=== PATIENT | female | born 1965 | race Caucasian/White ===

== ENCOUNTER 2018-02-28 00:46 | Inpatient (IN) ==
--- NOTE | 2018-02-28 01:31 | Internal Med History&Physical ---
Date of Encounter: 02/28/18 Time of Encounter: 01:31 Internal Medicine - H&P: HPI Chief complaint: chest pain Admitted From: Home Plans for Post Hospital Care: Home History of present illness: Ms. Sanchez is a 52 year old obese female with a history of hypertension and coronary artery disease with chronic lumbago who presents today on transfer from [facility] after being taken there for chest pain that started after undergoing injections to her lumbar spine for pain. She cannot specify what exactly was injected however she says it started when she was in recovery and felt it across her precordium with radiation to her left axilla. She denies accompanying shortness of breath or lightheadedness. She reports short-lived relief with sublingual nitroglycerin. While at [facility] it is reported that her EKG was non- ischemic with a negative initial troponin at 1645hrs. I asked for a D-dimer to be done which was elevated but a subsequent CTA was negative for PE. She presents here stating that she now feels the pain below her ribcage bilaterally with a horizontal type of radiation. She is comfortable however and wants to eat some food. Family history remarkable for HTN in father. PMHx as above. Social history remarkable for active tobacco use. Past Med Surg Social Fam HX - Family History Mother Living Status: Still Living Hx Family Cardiac Disorders: Yes (HTN) Hx Family Respiratory Disorders: Yes (asthma) Hx Family Endocrine Disorder: Yes (DM) Father Living Status: Cause of : carotid artery occluded. Internal Medicine - H&P: Meds Allergy/AdvReac Type Severity Reaction Status Date / Time acetaminophen [From Percocet] Allergy Hives Verified 02/28/18 02:02 aspirin Allergy Difficulty Verified 02/28/18 02:02 Breathing cephalexin Allergy Difficulty Verified 02/28/18 02:02 Breathing ibuprofen [From Motrin] Allergy Difficulty Verified 02/28/18 02:02 Breathing Iodinated Contrast- Oral and Allergy Difficulty Verified 02/28/18 02:02 IV Dye Breathing Latex, Natural Rubber Allergy Difficulty Verified 02/28/18 02:02 Breathing milk Allergy Wheezing Verified 02/28/18 02:02 morphine Allergy Difficulty Verified 02/28/18 02:02 Breathing Oxycodone [From Percocet] Allergy Hives Verified 02/28/18 02:02 shellfish derived Allergy Difficulty Verified 02/28/18 02:02 Breathing All Systems PM: A 10-system review of systems was performed and is negative for pertinent findings except as documented above in the HPI. - Constitutional Vitals: Temp Pulse Resp BP Pulse Ox 98 F 82 16 129/81 99 02/28/18 01:07 02/28/18 01:07 02/28/18 01:07 02/28/18 01:07 02/28/18 01:07 Exam: Vitals: Reviewed General: Obese white F lying in bed in NAD Skin: Warm and supple. HEENT: Moist mucous membranes. No conjunctivae pallor. Neck: No lymphadenopathy. No JVD. No carotid bruits. No palpable thyroid. Chest: Normal thoracic expansion. Normal breath sounds. Clear to auscultation. Heart: Normal S1 & S2; rhythmic. No rubs or murmurs. Abdomen: Non-distended, soft and non-tender to palpation. No peritoneal reaction. Extremities: No clubbing, cyanosis or edema. No calf tenderness. Normal distal pulses. Neurological: Awake, alert and oriented to person, place and time. No focal deficits. Psych: Affect appropriate. - Assessment and plan (1) Chest pain Current Visit: Yes Status: Acute Assessment and plan: The patient does have risk factors for CAD given her obesity and smoking history. Timing of chest pain onset concerning for an embolic phenomenon however this was ruled out on CT scan. Will obtain an EKG here, monitor on telemetry and repeat troponin. Can receive ntg prn. There's an element of reproducible pain as well. Also check serum lipase. Qualifiers: Chest pain type: unspecified Qualified Code(s): R07.9 - Chest pain, unspecified (2) HTN (hypertension) Current Visit: Yes Status: Acute Assessment and plan: Well controlled. Awaiting confirmation of home meds to resume. Qualifiers: Hypertension type: essential hypertension Qualified Code(s): I10 - Essential (primary) hypertension (3) Obesity Current Visit: Yes Status: Chronic Assessment and plan: Will benefit from weight loss. Diet and exercise education given. Qualifiers: Obesity type: due to excess calories Obesity classification: adult class 3 (BMI >= 40) Serious obesity comorbidity presence: with serious comorbidity Body mass index: BMI 50.0-59.9 Qualified Code(s): E66.01 - Morbid (severe) obesity due to excess calories; Z68.43 - Body mass index (BMI) 50-59.9, adult (4) CAD (coronary artery disease) Current Visit: Yes Status: Chronic Assessment and plan: Reports history of 1 stent. Awaiting verification of home meds. Should be on antiplatelet and statin therapy. Qualifiers: Coronary Disease-Associated Artery/Lesion type: [place] artery [place] vs. transplanted heart: [place] heart Associated angina: with stable angina Qual ified Code(s): I25.118 - Atherosclerotic heart disease of [place] coronary artery with other forms of angina pectoris (5) DVT prophylaxis Current Visit: Yes Status: Acute Assessment and plan: SubQ heparin indicated. - Time Spent With Patient Total time spent is greater than 50% in coordination of care (as documented) at patient's floor/unit and/or counseling patient: Greater than 35 minutes
[2018-02-28] MEDS: traMADol 50 MG TABLET PO PRN ×3 (05:00→23:49)
[2018-02-28 05:36] LABS: Basophils % 0.5 %; Eosinophils # 0.2 K/mcL (0.0-0.6); Eosinophils % 2.4 %; Hematocrit 36.2 % (35.3-44.9); Hemoglobin 11.6 g/dL (11.5-15.4); Immature Granulocytes % 0.5 % (0-4); Lymphocytes # 1.5 K/mcL (0.6-4.6); Lymphocytes % 23.1 %; Mean Corpuscular Hemoglobin 28.6 pg (28.0-33.3); Mean Corpuscular Volume 89.2 fL (83.0-100.0); Monocytes # 0.5 K/mcL (0.0-1.3); Monocytes % 8.1 %; Neutrophils # 4.3 K/mcL (1.6-8.9); Platelet Count 310 K/mcL (140-400); Red Blood Count 4.06 M/mcL (3.82-4.97); Red Cell Distribution Width 13.9 % (11.5-14.5); Segmented Neutrophils % 65.4 %
[2018-02-28 05:59] LABS: Troponin I < 0.03 ng/mL (< 0.04)
[2018-02-28] MEDS ORDERED: *HR* Heparin 5,000 UNIT/ML VIAL SQ SCH (06:00)
[2018-02-28 06:33] LABS: BUN/Creatinine Ratio 22 (6-26); Blood Urea Nitrogen 18 mg/dL (6-20); Calcium 8.6 mg/dL (8.6-10.3); Carbon Dioxide 22 mEq/L (23-29); Chloride 109 mEq/L (98-107); Glucose 149 mg/dL (70-105); Lipase 16 Units/L (11-82); Osmolality,Calculated 299 (280-300); Potassium 3.7 mEq/L (3.5-5.1); Sodium 142 mEq/L (136-145); eGFR For Non-African Americans > 60 (> 60)
[2018-02-28] MEDS: Gabapentin 400 MG CAPSULE PO SCH ×3 (08:47→20:42)
[2018-02-28] MEDS: *HR* Rivaroxaban 10 MG TABLET PO SCH (08:47)
[2018-02-28] MEDS: traZODone 50 MG TABLET PO SCH (08:47)
[2018-02-28] MEDS: Famotidine 20 MG TABLET PO SCH (08:48)
[2018-02-28] MEDS: Perphenazine 8 MG TABLET PO SCH ×3 (08:49→20:42)
[2018-02-28] MEDS: (Breo Ellipta 100-25 Mcg Inh) IH SCH (08:52)
[2018-02-28] MEDS: (Ezetimibe [Zetia] 10 MG) PO SCH (08:53)
[2018-02-28] MEDS: Fluticasone Propionate Nasal 50 MCG/SPRAY BOTTLE NS SCH (08:53)
[2018-02-28] MEDS: Nitroglycerin 0.4 MG TAB.SUBL SL PRN (11:31)
--- NOTE | 2018-02-28 16:03 | Internal Med Progress Note ---
Hospitalist Progress Note - Encounter Date of Encounter: 02/28/18 Time of Encounter: 12:00 - Subjective Interval History: Patient was seen and examined at bedside patient still complaining about intermittent midsternal chest pain radiating to her left shoulder associated with some nausea denied any shortness of breath - Exam Vitals: Temp Pulse Resp BP Pulse Ox 97.9 F 82 18 109/75 96 02/28/18 15:16 02/28/18 15:16 02/28/18 15:16 02/28/18 15:16 02/28/18 11:20 Exam: Gen: Alert, awake, Oriented to time,place and person Chest: Diminished breath sounds B/L, No wheezing, No crackles, No rales Heart: S1S2+ RRR No murmurs Abd: Soft, NT, BS +, No organomegaly Ext: No edema, pulses are palpable, No calf tenderness Neuro : Benign findings Skin: No rash. - Assessment and Plan (1) Chest pain Current Visit: Yes Status: Acute Assessment and Plan: So far negative troponin 3 reviewed EKG did not show any acute ischemic changes, no ST T changes continue Statin she is allergic to aspirin since patient is high risk for ACS scheduled for nuclear stress test (2) HTN (hypertension) Current Visit: Yes Status: Acute Assessment and Plan: Well controlled with current regimen (3) Obesity Current Visit: Yes Status: Chronic Assessment and Plan: Will benefit from weight loss. Diet and exercise education given. (4) CAD (coronary artery disease) Current Visit: Yes Status: Chronic Assessment and Plan: Reports history of 1 stent resumed home medications (5) DVT prophylaxis Current Visit: Yes Status: Acute Assessment and Plan: SubQ heparin indicated. (6) Bipolar 2 disorder Current Visit: Yes Status: Acute Assessment and Plan: Resumed all home medications - Time Spent with Patient Total time spent is greater than 50% in coordination of care (as documented) at patient's floor/unit and/or counseling patient: Internal Medicine: Result - Labs CBC & Chem 7: 02/28/18 04:47 02/28/18 04:47 Labs: Short CBC 02/28/18 Range/Units 04:47 WBC 6.6 (4.3-11.1) K/mcL Hgb 11.6 (11.5-15.4) g/dL Hct 36.2 (35.3-44.9) % Plt Count 310 (140-400) K/mcL Neutrophils # 4.3 (1.6-8.9) K/mcL BMP 02/28/18 04:47 Sodium 142 Potassium 3.7 Chloride 109 H Carbon Dioxide 22 L BUN 18 Creatinine 0.83 Glucose 149 H Calcium 8.6 Cardiac Enzymes 02/28/18 Range/Units 04:47 Troponin I < 0.03 (< 0.04) ng/mL Consult Discharge Plan - Plan Referrals: Tiffanie Wiseman, FUNDING COORDINATOR [Primary Care Provider] - (1) Chest pain Qualifiers: Chest pain type: unspecified Qualified Code(s): R07.9 - Chest pain, unspecified (2) HTN (hypertension) Qualifiers: Hypertension type: essential hypertension Qualified Code(s): I10 - Essential (primary) hypertension (3) Obesity Qualifiers: Obesity type: due to excess calories Obesity classification: adult class 3 (BMI >= 40) Serious obesity comorbidity presence: with serious comorbidity Body mass index: BMI 50.0-59.9 Qualified Code(s): E66.01 - Morbid (severe) obesity due to excess calories; Z68.43 - Body mass index (BMI) 50-59.9, adult (4) CAD (coronary artery disease) Qualifiers: Coronary Disease-Associated Artery/Lesion type: [place] artery [place] vs. transplanted heart: [place] heart Associated angina: with stable angina Qualified Code(s): I25.118 - Atherosclerotic heart disease of [place] coronary artery with other forms of angina pectoris
[2018-02-28] MEDS ORDERED: Saline Nasal Spray 44 ML BOTTLE NS ONE (21:37)
[2018-03-01] MEDS ORDERED: Ondansetron 4 MG/2 ML VIAL IVP ONE (04:38)
[2018-03-01] MEDS ORDERED: Regadenoson 0.4 MG/5 ML SYRINGE IVP ONE (05:38)
[2018-03-01] MEDS: traMADol 50 MG TABLET PO PRN ×2 (06:16→21:16)
[2018-03-01] MEDS: traZODone 50 MG TABLET PO SCH (10:59)
[2018-03-01] MEDS: *HR* Rivaroxaban 10 MG TABLET PO SCH (10:59)
[2018-03-01] MEDS: Gabapentin 400 MG CAPSULE PO SCH ×3 (10:59→20:50)
[2018-03-01] MEDS: Famotidine 20 MG TABLET PO SCH (11:00)
[2018-03-01] MEDS: Ondansetron 4 MG/2 ML VIAL IVP PRN ×2 (11:01→20:52)
[2018-03-01] MEDS: Perphenazine 8 MG TABLET PO SCH ×3 (11:01→20:50)
--- NOTE | 2018-03-01 14:29 | Internal Med Progress Note ---
Hospitalist Progress Note - Encounter Date of Encounter: 03/01/18 Time of Encounter: 14:28 - Subjective Interval History: Patient was seen and examined at bedside She denied any more CP Still has nausea denied any shortness of breath - Exam Vitals: Temp Pulse Resp BP Pulse Ox 97.8 F 96 17 129/71 94 03/01/18 14:25 03/01/18 14:25 03/01/18 14:25 03/01/18 14:25 03/01/18 14:25 Exam: Gen: Alert, awake, Oriented to time,place and person Chest: Diminished breath sounds B/L, No wheezing, No crackles, No rales Heart: S1S2+ RRR No murmurs Abd: Soft, NT, BS +, No organomegaly Ext: No edema, pulses are palpable, No calf tenderness Neuro : Benign findings Skin: No rash. - Assessment and Plan (1) Chest pain Current Visit: Yes Status: Acute Assessment and Plan: So far negative troponin 3 reviewed EKG did not show any acute ischemic changes, no ST T changes continue Statin she is allergic to aspirin since patient is high risk for ACS scheduled for nuclear stress test.. She does need 2 days stress test (2) HTN (hypertension) Current Visit: Yes Status: Acute Assessment and Plan: Well controlled with current regimen (3) Obesity Current Visit: Yes Status: Chronic Assessment and Plan: Will benefit from weight loss. Diet and exercise education given. (4) CAD (coronary artery disease) Current Visit: Yes Status: Chronic Assessment and Plan: Reports history of 1 stent resumed home medications (5) DVT prophylaxis Current Visit: Yes Status: Acute Assessment and Plan: SubQ heparin indicated. (6) Bipolar 2 disorder Current Visit: Yes Status: Acute Assessment and Plan: Resumed all home medications - Time Spent with Patient Total time spent is greater than 50% in coordination of care (as documented) at patient's floor/unit and/or counseling patient: Internal Medicine: Result - Labs CBC & Chem 7: 02/28/18 04:47 02/28/18 04:47 Labs: Cardiac Enzymes 03/01/18 Range/Units 04:07 Troponin I < 0.03 (< 0.04) ng/mL Consult Discharge Plan - Plan Referrals: Tiffanie Wiseman, HIGHER EDUCATION ADMINISTRATOR [Primary Care Provider] - 03/08/18 12:30 pm (1) Chest pain Qualifiers: Chest pain type: unspecified Qualified Code(s): R07.9 - Chest pain, unspecified (2) HTN (hypertension) Qualifiers: Hypertension type: essential hypertension Qualified Code(s): I10 - Essential (primary) hypertension (3) Obesity Qualifiers: Obesity type: due to excess calories Obesity classification: adult class 3 (BMI >= 40) Serious obesity comorbidity presence: with serious comorbidity Body mass index: BMI 50.0-59.9 Qualified Code(s): E66.01 - Morbid (severe) obesity due to excess calories; Z68.43 - Body mass index (BMI) 50-59.9, adult (4) CAD (coronary artery disease) Qualifiers: Coronary Disease-Associated Artery/Lesion type: [place] artery [place] vs. transplanted heart: [place] heart Associated angina: with stable angina Qualified Code(s): I25.118 - Atherosclerotic heart disease of [place] coronary ar [place] with other forms of angina pectoris
[2018-03-01] MEDS: (Breo Ellipta 100-25 Mcg Inh) IH SCH (14:40)
[2018-03-01] MEDS: (Ezetimibe [Zetia] 10 MG) PO SCH (14:40)
[2018-03-01] MEDS: Fluticasone Propionate Nasal 50 MCG/SPRAY BOTTLE NS SCH ×2 (19:32→21:11)
[2018-03-02] MEDS: traMADol 50 MG TABLET PO PRN ×4 (03:08→23:41)
[2018-03-02] MEDS: Ondansetron 4 MG/2 ML VIAL IVP PRN ×4 (03:10→23:42)
[2018-03-02] MEDS: Gabapentin 400 MG CAPSULE PO SCH ×3 (08:50→21:25)
[2018-03-02] MEDS: Famotidine 20 MG TABLET PO SCH (08:50)
[2018-03-02] MEDS: Perphenazine 8 MG TABLET PO SCH ×3 (08:51→21:25)
[2018-03-02] MEDS: traZODone 50 MG TABLET PO SCH (08:51)
[2018-03-02] MEDS: *HR* Rivaroxaban 10 MG TABLET PO SCH (08:51)
[2018-03-02] MEDS: Fluticasone Propionate Nasal 50 MCG/SPRAY BOTTLE NS SCH ×2 (08:51→21:25)
[2018-03-02] MEDS: (Breo Ellipta 100-25 Mcg Inh) IH SCH (10:01)
[2018-03-02] MEDS: (Ezetimibe [Zetia] 10 MG) PO SCH (10:01)
--- NOTE | 2018-03-02 11:39 | Cardiology Consult Note ---
<Jaswinder Hill - Last Filed: 03/02/18 14:08> Date of Encounter: 03/02/18 Time of Encounter: 11:38 Assessment and Plan (1) Chest pain Current Visit: Yes Status: Acute - not on anti-anginal medications - start on metropolol. If she feels better we can do cath outpatient. If she doesn't improve we conisder cath tomorrow. - consult for aspirin allergy desensitization. Rec start ASA per their recs. - small apical perfusion defect on stress test. Qualifiers: Chest pain type: unspecified Qualified Code(s): R07.9 - Chest pain, unspecified (2) HTN (hypertension) Current Visit: Yes Status: Acute Not hypertensive 102/66. Qualifiers: Hypertension type: essential hypertension Qualified Code(s): I10 - Essential (primary) hypertension (3) CAD (coronary artery disease) Current Visit: Yes Status: Chronic See recs for chest pain. Qualifiers: Coronary Disease-Associated Artery/Lesion type: [place] artery [place] vs. transplanted heart: [place] heart Associated angina: with stable angina Qualified Code(s): I25.118 - Atherosclerotic heart disease of [place] coronary artery with other forms of angina pectoris Discussion w patient/family: The assessment and plan as outlined above was discussed with the patient and/or family members who expressed understanding and agreement. All questions were answered. Thank you for involving us in the care of your patient. Please call with any questions. History of Present Illness Consult date: 03/02/18 Consult reason: abnormal stress test and CP Chief complaint: CP History of present illness: Ms. Sanchez is a 52 year old female here for CP with abnormal stress test. [place] of HTN, afib, CAD, ACS s/p stent 20 years ago, DVT hyperlipidemia, DM, and bipolar II. Patient was undergoing spinal injection at [facility] for hip pain yesterday when she started having CP and SOB needing oxygen. THe CP was substernal, radiating to left axilla and back, rated 10/10, alleviated by nitro. At [facility] EG was negative for ST changes, she had negative troponins, d-dimer was elevated w/ follow up CTA negative for PE. Currently patient reports substernal CP going to L shoulder and down left hand rated 8/10. At current visit patient has negative EKG x 2, and negative trops x 2. CXR showed normal heart size. Patient has significant family history of heart disease: sister had ID, middle and older brothers have enlarged hearts. Past Med Surg Social Fam HX - Past Medical History Medical history: CHF, COPD, DVT, diabetes, hyperlipidemia, hypertension, migraine, pulmonary embolus, other Additional medical history: ortho, bilateral knees. Heart murmur. Unstable angina Psychiatric history: depression, schizophrenia - Social History Smoking Status: Never smoker Smokeless Tobacco Status: No Alcohol use: none Drug use: none - Family History Mother Living Status: Still Living Hx Family Cardiac Disorders: Yes (HTN) Hx Family Respiratory Disorders: Yes (asthma) Hx Family Endocrine Disorder: Yes (DM) Father Living Status: Cause of : carotid artery occluded. Medications and Allergies Atorvastatin [Lipitor] 40 mg PO HS 02/28/18 [History] Benztropine [Cogentin] 0.5 mg PO DAILY 02/28/18 [History] Cyclobenzaprine HCl 5 mg PO BID 02/28/18 [History] DULoxetine [Cymbalta] 30 mg PO DAILY 02/28/18 [History] Fluticasone Propionate Nasal [Flonase] 1 puff IH BID 02/28/18 [History] Fluticasone/Vilanterol [Breo Ellipta 100-25 Mcg INH] 1 each IH DAILY 02/28/18 [History] Gabapentin [Neurontin] 800 mg PO TID 02/28/18 [History] Ipratropium/Albuterol Neb [Duoneb] 3 ml IH TID PRN 02/28/18 [History] Levocetirizine Dihydrochloride [Allergy Relief] 5 mg PO DAILY 02/28/18 [History] Lisinopril [Zestril] 5 mg PO DAILY 02/28/18 [History] Lurasidone [Latuda] 40 mg PO DAILY 02/28/18 [History] Meclizine HCl [Verticalm] 25 mg PO DAILY 02/28/18 [History] Montelukast [Singulair] 10 mg PO DAILY 02/28/18 [History] Ranitidine HCl [Acid Concrete Laborer] 150 mg PO DAILY 02/28/18 [History] Rivaroxaban [Xarelto] 20 mg PO DAILY 02/28/18 [History] Topiramate 50 mg PO DAILY 02/28/18 [History] Topiramate 100 mg PO HS 02/28/18 [History] Trazodone HCl 200 mg PO HS 02/28/18 [History] Allergy/AdvReac Type Severity Reaction Status Date / Time acetaminophen [From Percocet] Allergy Hives Verified 02/28/18 02:02 aspirin Allergy Difficulty Verified 02/28/18 02:02 Breathing cephalexin Allergy Difficulty Verified 02/28/18 02:02 Breathing ibuprofen [From Motrin] Allergy Difficulty Verified 02/28/18 02:02 Breathing Iodinated Contrast- Oral and Allergy Difficulty Verified 02/28/18 02:02 IV Dye Breathing Latex, Natural Rubber Allergy Difficulty Verified 02/28/18 02:02 Breathing milk Allergy Wheezing Verified 02/28/18 02:02 morphine Allergy Difficulty Verified 02/28/18 02:02 Breathing Oxycodone [From Percocet] Allergy Hives Verified 02/28/18 02:02 shellfish derived Allergy Difficulty Verified 02/28/18 02:02 Breathing All Systems Review: The remainder of the systems were reviewed and are negative - Constitutional Constitutional: no chills, no fatigue, no fever(s), no night sweats, no weakness - Cardiovascular Cardiovascular: as per HPI - Respiratory Respiratory: no dyspnea (resolved from dypsnea at [facility]) - Musculoskeletal Musculoskeletal: other (LE pain) Physical Examination General: Conversant, No Apparent Distress HEENT: Atraumatic, Normocephaly Neck: No JVD, Normal carotid pulses Cardiac: Reg Rate and Rhythm, Normal S1 and S2, No Murmur Lungs: Normal Breath Sounds Neuro: Alert and responsive, No focal deficits noted Abdomen: Soft, Non-Tender Skin: No rashes noted on visualized skin Musculoskeletal: No Chest Wall Tenderness Extremities: No Clubbing, No Cyanosis, No Edema, Normal Pulses Results 02/28/18 04:47 02/28/18 04:47 - Imaging and Cardiology Stress Test: report reviewed (Report showed apical ischemia) - EKG Interpretation EKG results cardiology: personally reviewed, normal ECG, sinus rhythm, no diagnostic ischemia Consult Discharge Plan - Plan Referrals: Tiffanie Wiseman, RADIOLOGIC TECH [Primary Care Provider] - 03/08/18 12:30 pm <ClaytonTuesday A - Last Filed: 03/02/18 16:03> Date of Encounter: 03/02/18 - Attending Attestation I have personally performed a face to face evaluation on this patient. I have reviewed and agree with the documented findings and care plan as documented by the resident. History and Exam by me shows: 52-year-old [place] female, morbidly obese who presented with atypical chest pain and shortness of breath on [id number] exertion. Myocardial perfusion imaging showed small apical ischemia with SDS of 2. Recommend starting antianginal medications including beta crow and nitrates. Need aspirin desensitization. For possible left heart catheter was aspirin desensitization is complete, or as outpatient Thanks, Ino Mills MD Assessment and Plan Discussion w patient/family: The assessment and plan as outlined above was discussed with the patient and/or family members who expressed understanding and agreement. All questions were answered. Thank you for involving us in the care of your patient. Please call with any questions. History of Present Illness History of present illness: Ms. Sanchez is a 52 year old female All Systems Review: The remainder of the systems were reviewed and are negative Physical Examination Vital Signs, Last 4 Hours Temp Pulse Resp BP Pulse Ox 03/02/18 15:31 98.1 F 71 15 100/66 93 Results 02/28/18 04:47 02/28/18 04:47
--- NOTE | 2018-03-02 14:01 | Internal Med Progress Note ---
Hospitalist Progress Note - Encounter Date of Encounter: 03/02/18 Time of Encounter: 13:56 - Subjective Interval History: Patient was seen and examined at bedside denied any shortness of breath she still have intermittent chest pain located at left chest wall and radiating to her left shoulder - Exam Vitals: Temp Pulse Resp BP Pulse Ox 98.0 F 81 18 102/66 96 03/02/18 11:47 03/02/18 11:47 03/02/18 11:47 03/02/18 11:47 03/02/18 11:47 Exam: Gen: Alert, awake, Oriented to time,place and person Chest: Diminished breath sounds B/L, No wheezing, No crackles, No rales Heart: S1S2+ RRR No murmurs Abd: Soft, NT, BS +, No organomegaly Ext: No edema, pulses are palpable, No calf tenderness Neuro : Benign findings Skin: No rash. - Assessment and Plan (1) Chest pain Current Visit: Yes Status: Acute Assessment and Plan: Negative troponin 3 reviewed EKG did not show any acute ischemic changes, no ST T changes continue Statin she is allergic to aspirin she is still complaining about intermittent chest pain Her nuclear stress test came back as slightly abnormal - Mild apical ischemia consulted cardiology for further evaluation patient is allergic to contrast does get hives and asthma exacerbation at this point cardiology recommend to start her on beta crow and nitro ( Imdur ) to see how patient responds since patient blood pressure running low in 100's, Will start low-dose beta crow Metoprolol 12.5 for now if patient still continue to have chest pain possible left heart cath in the morning (2) Abnormal stress test Current Visit: Yes Status: Acute (3) HTN (hypertension) Current Visit: Yes Status: Acute Assessment and Plan: Well controlled with current regimen (4) Obesity Current Visit: Yes Status: Chronic Assessment and Plan: Will benefit from weight loss. Diet and exercise education given. (5) CAD (coronary artery disease) Current Visit: Yes Status: Chronic Assessment and Plan: Reports history of 1 stent resumed home medications (6) DVT prophylaxis Current Visit: Yes Status: Acute Assessment and Plan: SubQ heparin indicated. (7) Bipolar 2 disorder Current Visit: Yes Status: Acute Assessment and Plan: Resumed all home medications - Time Spent with Patient Total time spent is greater than 50% in coordination of care (as documented) at patient's floor/unit and/or counseling patient: Internal Medicine: Result - Labs CBC & Chem 7: 02/28/18 04:47 02/28/18 04:47 Consult Discharge Plan - Plan Referrals: Tiffanie Wiseman CNP [Primary Care Provider] - 03/08/18 12:30 pm (1) Chest pain Qualifiers: Chest pain type: unspecified Qualified Code(s): R07.9 - Chest pain, unspecified (3) HTN (hypertension) Qualifiers: Hypertension type: essential hypertension Qualified Code(s): I10 - Essential (primary) hypertension (4) Obesity Qualifiers: Obesity type: due to excess calories Obesity classification: adult class 3 (BMI >= 40) Serious obesity comorbidity presence: with serious comorbidity Body mass index: BMI 50.0-59.9 Qualified Code(s): E66.01 - Morbid (severe) obesity due to excess calories; Z68.43 - Body mass index (BMI) 50-59.9, adult (5) CAD (coronary artery disease) Qualifiers: Coronary Disease-Associated Artery/Lesion type: [place] artery [place] vs. transplanted heart: [place] heart Associated angina: with stable angina Qualified Code(s): I25.118 - Atherosclerotic heart disease of [place] coronary artery with other forms of angina pectoris
--- NOTE | 2018-03-02 16:31 | Allergy Consult Note ---
Date of Encounter: 03/02/18 Time of Encounter: 16:00 Assessment and Plan (1) Adverse effect of unspecified drugs, medicaments and biological substances, initial encounter Current Visit: Yes Status: Acute Patient has history of aspirin allergy and is requiring aspirin for heart catherization. If patient is going to be discharged and catherization done at a later time then I recommend a direct admit to ICU at that time with aspirin desenstization prior. If patient requires catherization sooner then she will need to be off her beta crow prior to desensitization. I would also like to optomize her asthma control before doing desensitization. I have discussed procedure in detail with patient and discussed the risk and benefits. (2) Severe persistent asthma Current Visit: Yes Status: Acute Patient has history of severe persistent asthma. Patient still has daytime and nocturnal cough daily. She has been off of her inhalers x 2-3 days. It is hard to tell if any of her chest pain is secondary to her asthma. I did not hear wheezing on exam today however it was difficult for her to take full breaths while trying to sit up. I will start her on symbicort 160mcg 2 puffs BID while in the hospital. I have discussed patient with Dr. Albert and he will see patient tomorrow morning. I also ordered albuterol neb now and then Q 4hr PRN to see if this improves her chest pain at all. Qualifiers: Qualified Code(s): J45.50 - Severe persistent asthma, uncomplicated History of Present Illness Consult date: 03/02/18 Reason for consult: Drug allergy Requesting physician: Jaswinder Hill History of present illness: Patient is a 52 year with CAD, severe persistent asthma, aspirin allergy and admitted for chest pain. I was consulted for the aspirin allergy as cardiology would like to do catherization. Patient reports 20-25 years ago having hives over entire body and an asthma attach shortly after taking aspirin. She does not remember any other details. She has avoided aspirin since then. She also avoids other NSAIDs. She also reports having asthma since age 12. She is being followed by Dr. Albert and is currently taking Breo 100mcg and Arunity 100mcg and singulair. She is using her nebulizer a couple times a week but reports cough daily and multiple times a night. She is scheduled to have a PFT done. Her IgE is elevated and eosinophils were 300. She has follow up with Dr. Albert 03/08. Patient still reports having tightness in her chest. She feels like an elephant on her chest and that her lungs are tight. She has not had her inhalers in last couple days. Past Med Surg Social Fam HX - Past Medical History Medical history: asthma, CHF, COPD, DVT, diabetes, hyperlipidemia, hypertension, migraine, pulmonary embolus, other Additional medical history: ortho, bilateral knees. Heart murmur. Unstable angina Psychiatric history: depression, schizophrenia - Social History Smoking Status: Never smoker Smokeless Tobacco Status: No Alcohol use: none Drug use: none - Family History Father Living Status: Cause of : carotid artery occluded. Mother Living Status: Still Living Hx Family Cardiac Disorders: Yes (HTN) Hx Family Respiratory Disorders: Yes (asthma) Hx Family Endocrine Disorder: Yes (DM) Medications and Allergies Atorvastatin [Lipitor] 40 mg PO HS 02/28/18 [History] Benztropine [Cogentin] 0.5 mg PO DAILY 02/28/18 [History] DULoxetine [Cymbalta] 30 mg PO DAILY 02/28/18 [History] Fluticasone/Vilanterol [Breo Ellipta 100-25 Mcg INH] 1 each IH DAILY 02/28/18 [History] Gabapentin [Neurontin] 800 mg PO TID 02/28/18 [History] Ipratropium/Albuterol Neb [Duoneb] 3 ml IH TID PRN 02/28/18 [History] Levocetirizine Dihydrochloride [Allergy Relief] 5 mg PO DAILY 02/28/18 [History] Lurasidone [Latuda] 40 mg PO DAILY 02/28/18 [History] Meclizine HCl [Verticalm] 25 mg PO DAILY 02/28/18 [History] Montelukast [Singulair] 10 mg PO DAILY 02/28/18 [History] RX: Cyclobenzaprine HCl 5 mg PO BID 02/28/18 [History] RX: Fluticasone Propionate Nasal [Flonase] 1 puff IH BID 02/28/18 [History] RX: Lisinopril [Zestril] 5 mg PO DAILY 02/28/18 [History] RX: Trazodone HCl 200 mg PO HS 02/28/18 [History] Ranitidine HCl [Acid Peripheral Edp Equipment Operator] 150 mg PO DAILY 02/28/18 [History] Rivaroxaban [Xarelto] 20 mg PO DAILY 02/28/18 [History] Topiramate 50 mg PO DAILY 02/28/18 [History] Topiramate 100 mg PO HS 02/28/18 [History] Allergy/AdvReac Type Severity Reaction Status Date / Time acetaminophen [From Percocet] Allergy Hives Verified 02/28/18 02:02 aspirin Allergy Difficulty Verified 02/28/18 02:02 Breathing cephalexin Allergy Difficulty Verified 02/28/18 02:02 Breathing ibuprofen [From Motrin] Allergy Difficulty Verified 02/28/18 02:02 Breathing Iodinated Contrast- Oral and Allergy Difficulty Verified 02/28/18 02:02 IV Dye Breathing Latex, Natural Rubber Allergy Difficulty Verified 02/28/18 02:02 Breathing milk Allergy Wheezing Verified 02/28/18 02:02 morphine Allergy Difficulty Verified 02/28/18 02:02 Breathing Oxycodone [From Percocet] Allergy Hives Verified 02/28/18 02:02 shellfish derived Allergy Difficulty Verified 02/28/18 02:02 Breathing ROS Allergy - Constitutional Constitutional ROS: no fever(s) - EENT Nose, mouth and throat: nasal obstruction, no throat swelling, no tongue swelling - Cardiovascular Cardiovascular ROS IM: chest pain - Respiratory cough, dyspnea, snoring - Gastrointestinal Gastrointestinal: no vomiting - Musculoskeletal Musculoskeletal ROS: no neck pain - Integumentary Integumentary: no rash - Allergic/Immunologic no tongue swelling, no itchy eyes Allergy Exam Initial Vital Signs Temp Pulse Resp BP Pulse Ox 98 F 82 16 129/81 99 02/28/18 01:07 02/28/18 01:07 02/28/18 01:07 02/28/18 01:07 02/28/18 01:07 - Additional Findings Constitutional: No distress but uncomfortable in bed Head:atraumatic normocephalic Eye-conjunctiva clear Nose-turbinates 2+, dry Mouth-mucosa is dry Neck-supple, no lymphadenopathy Lungs-CTA B/L, no retractions, no distress, (patient had trouble sitting up in bed to examine her which caused labored breathing during exam) Heart-RRR Abdomen-obese, +BS Skin-no rashes Results - Labs 02/28/18 04:47 02/28/18 04:47 Abnormal lab results Chloride 109 mEq/L (98-107) H 02/28/18 04:47 Carbon Dioxide 22 mEq/L (23-29) L 02/28/18 04:47 Glucose 149 mg/dL (70-105) H 02/28/18 04:47 POC Glucose 123 mg/dL (70-99) H 02/28/18 16:10 All other labs normal. Consult Discharge Plan - Plan Referrals: Tiffanie Wiseman CNP [Primary Care Provider] - 03/08/18 12:30 pm
[2018-03-02] MEDS ORDERED: Albuterol 2.5 MG/3 ML NEBULIZER IH PRN (16:41)
[2018-03-02] MEDS ORDERED: Albuterol 2.5 MG/3 ML NEBULIZER IH ONE (16:42)
[2018-03-02] MEDS: Budesonide/Formoterol 160/4.5 1 PUFF INH IH SCH (19:57)
[2018-03-03] MEDS: Nitroglycerin 0.4 MG TAB.SUBL SL PRN ×2 (03:54→12:38)
[2018-03-03] MEDS: Ondansetron 4 MG/2 ML VIAL IVP PRN ×4 (06:09→22:54)
[2018-03-03] MEDS: traMADol 50 MG TABLET PO PRN ×4 (06:10→22:54)
--- NOTE | 2018-03-03 07:02 | Pulmonology Consult Note ---
Date of Encounter: 03/03/18 Time of Encounter: 07:01 Assessment and Plan (1) Chest pain Current Visit: Yes Status: Acute The patient is presenting with severe chest pain which has typical features of angina with a history of coronary artery disease also with an abnormal stress test clearly that this could represent angina related to underlying coronary artery disease and it is appropriate for cardiology to complete their evaluation Addition the patient has had poorly controlled asthma for some time and I am concerned that some of her feet features may be consistent with obstructive lung disease. I did peer financial counselor the patient ongoing weight loss is recommended Continue long-term anticoagulation for known thrombophilia with history of blood clots High pretest probability for sleep-disordered breathing she will need outpatient polysomnogram caution against the use of benzodiazepines or narcotics in this patient population especially IV formulations Possible adverse effects of untreated sleep apnea explained including increased risk of stroke, hypertension, headaches, and pulmonary hypertension. Advised not to drive if sleepy as untreated JESS can cause motor vehicle accidents. Aspirin desensitization per allergy recommendations Recs: Recommend starting prednisone burst (prednisone 40 mg daily 5 days) Her home medication is fluticasone/vilanterol 200/25mcg (BREO) and I had given her a supplement of fluticasone 100 mg to take in the short-term until clinic follow-up she can return to this regimen at home Additionally I recommend starting Symbicort 160/4.52 puffs twice a day while inpatient as a substitute for her combination inhaler that is not on formulary here. It is very important that this patient not miss doses of her combination inhaler regimen given the severity of her asthma Continue short acting beta agonist as needed Continue Singulair 10 mg daily Continued intranasal steroid for chronic treatment of allergic rhinitis She is scheduled next weeks in the pulmonary clinic for further evaluation Including a discussion of her son to be completed pulmonary function testing I will follow in clinic thank you for this consultation Qualifiers: Chest pain type: unspecified Qualified Code(s): R07.9 - Chest pain, unspecified (2) Severe persistent asthma with (acute) exacerbation Current Visit: Yes Status: Acute (3) Protein S deficiency Current Visit: Yes Status: Acute (4) Morbid obesity Current Visit: Yes Status: Acute (5) Sleep-disordered breathing Current Visit: Yes Status: Acute History of Present Illness Consult date: 03/03/18 Requesting physician: Alma Denise Reason for consult: asthma Chief complaint: Chest Pain History of present illness: This is a very pleasant 52-year-old woman who is well-known to me from a pulmonary clinic who suffers from severe persistent allergic asthma. She was admitted to the hospital actually transferred from [facility] for chest pain evaluation. The patient was undergoing hip injections are for chronic pain and had developed 10 out of 10 pain that was substernal in nature radiation to the left breast and then down the left arm and hand. It is now 4 out of 10. There was some alleviation of her symptoms after administration of nitroglycerin. She does have a history of coronary artery disease and had had stenting in the past. During this bout of chest pain she has had a negative CT angiogram which was negative for PE and then this was followed up by a nuclear stress test which was notable for a small area of apical ischemia (perfusion defect) She was evaluated by the mold press operator yesterday for possibility of aspirin desensitization prior to further evaluation of her coronary artery disease and occluding possibility of left heart catheter etc. The mold press operator noted that she was off all of her medications for treatment of asthma and felt that some of the symptoms may be in part related to asthma and felt that further evaluation with her known associate professor of art history was recommended. 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 She has a history of coronary artery disease is noted also in addition to asthma she is morbidly obese with a high pretest probability of sleep disordered breathing was being evaluated in the outpatient setting. Past Med Surg Social Fam HX - Past Medical History Medical history: asthma, CHF, COPD, DVT, diabetes, hyperlipidemia, hypertension, migraine, pulmonary embolus, other Additional medical history: ortho, bilateral knees. Heart murmur. Unstable angina Psychiatric history: depression, schizophrenia - Social History Smoking Status: Never smoker Smokeless Tobacco Status: No Alcohol use: none Drug use: none - Family History Mother Living Status: Still Living Hx Family Cardiac Disorders: Yes (HTN) Hx Family Respiratory Disorders: Yes (asthma) Hx Family Endocrine Disorder: Yes (DM) Father Living Status: Cause of : carotid artery occluded. Medications and Allergies Atorvastatin [Lipitor] 40 mg PO HS 02/28/18 [History] Benztropine [Cogentin] 0.5 mg PO DAILY 02/28/18 [History] Cyclobenzaprine HCl 5 mg PO BID 02/28/18 [History] DULoxetine [Cymbalta] 30 mg PO DAILY 02/28/18 [History] Fluticasone Propionate Nasal [Flonase] 1 puff IH BID 02/28/18 [History] Fluticasone/Vilanterol [Breo Ellipta 100-25 Mcg INH] 1 each IH DAILY 02/28/18 [History] Gabapentin [Neurontin] 800 mg PO TID 02/28/18 [History] Ipratropium/Albuterol Neb [Duoneb] 3 ml IH TID PRN 02/28/18 [History] Levocetirizine Dihydrochloride [Allergy Relief] 5 mg PO DAILY 02/28/18 [History] Lisinopril [Zestril] 5 mg PO DAILY 02/28/18 [History] Lurasidone [Latuda] 40 mg PO DAILY 02/28/18 [History] Meclizine HCl [Verticalm] 25 mg PO DAILY 02/28/18 [History] Montelukast [Singulair] 10 mg PO DAILY 02/28/18 [History] Ranitidine HCl [Acid Director Of Public Safety] 150 mg PO DAILY 02/28/18 [History] Rivaroxaban [Xarelto] 20 mg PO DAILY 02/28/18 [History] Topiramate 50 mg PO DAILY 02/28/18 [History] Topiramate 100 mg PO HS 02/28/18 [History] Trazodone HCl 200 mg PO HS 02/28/18 [History] Allergy/AdvReac Type Severity Reaction Status Date / Time acetaminophen [From Percocet] Allergy Hives Verified 02/28/18 02:02 aspirin Allergy Difficulty Verified 02/28/18 02:02 Breathing cephalexin Allergy Difficulty Verified 02/28/18 02:02 Breathing ibuprofen [From Motrin] Allergy Difficulty Verified 02/28/18 02:02 Breathing Iodinated Contrast- Oral and Allergy Difficulty Verified 02/28/18 02:02 IV Dye Breathing Latex, Natural Rubber Allergy Difficulty Verified 02/28/18 02:02 Breathing milk Allergy Wheezing Verified 02/28/18 02:02 morphine Allergy Difficulty Verified 02/28/18 02:02 Breathing Oxycodone [From Percocet] Allergy Hives Verified 02/28/18 02:02 shellfish derived Allergy Difficulty Verified 02/28/18 02:02 Breathing All Systems: The remainder of the systems were reviewed and are negative Physical Examination Vital Signs: Vital Signs, Last 4 Hours Temp Pulse Resp BP Pulse Ox 03/03/18 03:11 98 F 76 16 112/70 98 General appearance: no acute distress Eyes: nonicteric Mallampati (class): 4 Neck: supple Effort: normal Auscultation: bilateral: other (Patient has air entry bilaterally with no inspiratory wheezes but she does have diminished breath sounds in the expiratory phase) Cardiovascular: regular rate and rhythm Gastrointestinal: normoactive bowel sounds Integumentary: normal Extremities: no cyanosis, other (Trace lower extremity edema) Musculoskeletal: no deformities normal mental status, non-focal exam mood appropriate Results - Laboratory Findings CBC and BMP: 02/28/18 04:47 02/28/18 04:47 Abnormal lab findings: Abnormal lab results Chloride 109 mEq/L (98-107) H 02/28/18 04:47 Carbon Dioxide 22 mEq/L (23-29) L 02/28/18 04:47 Glucose 149 mg/dL (70-105) H 02/28/18 04:47 POC Glucose 142 mg/dL (70-99) H 03/02/18 20:30 - Diagnostic Findings Chest x-ray: report reviewed, image reviewed CT scan - chest: report reviewed, image reviewed - Clinical Findings Intake & Output: Intake & Output 03/02/18 03/02/18 03/03/18 15:59 23:59 07:59 Output Total 700 / 700 Balance -700 / -700 Weight 129 kg Consult Discharge Plan - Plan Referrals: Tiffanie Wiseman, SACK SEWER MACHINE [Primary Care Provider] - 03/08/18 12:30 pm
[2018-03-03] MEDS: Budesonide/Formoterol 160/4.5 1 PUFF INH IH SCH ×2 (08:07→22:36)
[2018-03-03] MEDS: Gabapentin 400 MG CAPSULE PO SCH ×3 (08:21→21:05)
[2018-03-03] MEDS: *HR* Rivaroxaban 10 MG TABLET PO SCH (08:21)
[2018-03-03] MEDS: Perphenazine 8 MG TABLET PO SCH ×3 (08:23→21:05)
[2018-03-03] MEDS: Famotidine 20 MG TABLET PO SCH (08:23)
[2018-03-03] MEDS: traZODone 50 MG TABLET PO SCH (08:23)
[2018-03-03] MEDS: (Ezetimibe [Zetia] 10 MG) PO SCH (08:23)
[2018-03-03] MEDS: Fluticasone Propionate Nasal 50 MCG/SPRAY BOTTLE NS SCH ×2 (08:24→21:06)
[2018-03-03] MEDS: (Breo Ellipta 100-25 Mcg Inh) IH SCH (08:24)
[2018-03-03] MEDS: predniSONE 20 MG TABLET PO SCH (08:32)
--- NOTE | 2018-03-03 10:06 | Internal Med Progress Note ---
Hospitalist Progress Note - Encounter Date of Encounter: 03/03/18 Time of Encounter: 09:52 - Subjective Interval History: Ms. Sanchez is a 52 year old female known past medical hisotry of HTN, CAD, s/p remote stent , hyperlipidemia, DM,, bipolar II, severe persistent allergic asthma , DVT and PE who got admitted here from [facility] for intermittent CP. She had nuclear stress test which came back as slightly abnormal with mild apical ischemia. Off not she did have significant allergic reaction to aspirin with hives and asthma exacerbation. Patient is still complaining about intermittent chest pain. She does have mild asthma exacerbation too. - Exam Vitals: Temp Pulse Resp BP Pulse Ox 97.8 F 65 17 111/67 97 03/03/18 07:33 03/03/18 07:33 03/03/18 07:33 03/03/18 07:33 03/03/18 07:33 Exam: Gen: Alert, awake, Oriented to time,place and person Chest: Diminished breath sounds B/L, No wheezing, No crackles, No rales Heart: S1S2+ RRR No murmurs Abd: Soft, NT, BS +, No organomegaly Ext: No edema, pulses are palpable, No calf tenderness Neuro : Benign findings Skin: No rash. - Assessment and Plan (1) Chest pain Current Visit: Yes Status: Acute Assessment and Plan: Negative troponin 3 reviewed EKG did not show any acute ischemic changes, no ST T changes continue Statin she is allergic to aspirin she is still complaining about intermittent chest pain Her nuclear stress test came back as slightly abnormal - Mild apical ischemia consulted cardiology for further evaluation patient is allergic to contrast does get hives and asthma exacerbation started her on low dose BB Metoprolol 12.5mg BID y/d, she did toelrate well, her BP in 110's today so added Imdur today at 30mg monitor her symptoms closely.. pt is still c/o intermittent CP Allergies specialist on board for possible ASA desensitization (2) Abnormal stress test Current Visit: Yes Status: Acute Assessment and Plan: see above (3) Asthma with acute exacerbation Current Visit: Yes Status: Acute Assessment and Plan: She might have mild exacerbation which might contributing to her current CP too Pulm on board.. appreciate recommendations started on Prednisone 40m Daily x 5 days Cont Symbicort Duoneb (4) HTN (hypertension) Current Visit: Yes Status: Acute Assessment and Plan: Well controlled with current regimen (5) Obesity Current Visit: Yes Status: Chronic Assessment and Plan: Will benefit from weight loss. Diet and exercise education given. (6) CAD (coronary artery disease) Current Visit: Yes Status: Chronic Assessment and Plan: Reports history of 1 stent resumed home medications (7) Bipolar 2 disorder Current Visit: Yes Status: Acute Assessment and Plan: Resumed all home medications (8) Pulmonary embolism Current Visit: Yes Status: Acute Assessment and Plan: Cont Xarelto for now - Time Spent with Patient Total time spent is greater than 50% in coordination of care (as documented) at patient's floor/unit and/or counseling patient: Internal Medicine: Result - Labs CBC & Chem 7: 02/28/18 04:47 02/28/18 04:47 Labs: Cardiac Enzymes 03/03/18 Range/Units 04:26 Troponin I < 0.03 (< 0.04) ng/mL Consult Discharge Plan - Plan Referrals: Tiffanie Wiseman, EDUCATIONAL RESOURCE COORDINATOR [Primary Care Provider] - 03/08/18 12:30 pm (1) Chest pain Qualifiers: Chest pain type: unspecified Qualified Code(s): R07.9 - Chest pain, unspecified (4) HTN (hypertension) Qualifiers: Hypertension type: essential hypertension Qualified Code(s): I10 - Essential (primary) hypertension (5) Obesity Qualifiers: Obesity type: due to excess calories Obesity classification: adult class 3 (BMI >= 40) Serious obesity comorbidity presence: with serious comorbidity Body mass index: BMI 50.0-59.9 Qualified Code(s): E66.01 - Morbid (severe) obesity due to excess calories; Z68.43 - Body mass index (BMI) 50-59.9, adult (6) CAD (coronary artery disease) Qualifiers: Coronary Disease-Associated Artery/Lesion type: [place] artery [place] vs. transplanted heart: [place] heart Associated angina: with stable angina Qualified Code(s): I25.118 - Atherosclerotic heart disease of [place] coronary artery with other forms of angina pectoris
[2018-03-03] MEDS: Isosorbide MONOnitrate (24 HR) 30 MG TAB.ER.24H PO SCH (10:29)
--- NOTE | 2018-03-03 10:38 | Allergy Progress Note ---
Date of Encounter: 03/03/18 Time of Encounter: 07:00 Subjective Narrative: Patient is still having chest pain. She rates this at 6/10 and it was 10/10 before pain medication. She does not feel like it is tender to palpation. The pain is under her left breast. She got symbicort last night and an albuterol neb. She did not see improvement in her chest pain after treatment. She has been nauseated since this started days ago. Objective Vital Signs - Last 8 Hours Temp Pulse Resp BP Pulse Ox 03/03/18 07:33 97.8 F 65 17 111/67 97 03/03/18 03:11 98 F 76 16 112/70 98 Intake and Output 03/02/18 03/03/18 03/03/18 23:59 07:59 15:59 Intake Total 0 / 0 Output Total 500 / 500 Balance -500 / -500 0 / 0 Intake: Oral 0 / 0 Output: Urine 500 / 500 Other: Meal NPO Percent of Meal Consumed 0% Weight 129 kg Blood Glucose* 144 110 Patient Weight 03/03/18 23:59 Weight 129 kg - General physical appearance obese - Eyes PERRL - ENT normal nares - Neck no lymphadectomy - Respiratory clear to auscultation, other (no distress, no wheezing) - Abdomen soft - Integumentary no rash - Neurologic no confused - Psychiatric oriented to person, oriented to place - Additional Exam Heart -RRR - Labs 02/28/18 04:47 02/28/18 04:47 - Assessment and Plan (1) Adverse effect of unspecified drugs, medicaments and biological substances, initial encounter Current Visit: Yes Status: Acute 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 I am waiting for cardiologies recommendations. I am not able to desensitize her while she is on beta crow. If she is discharged and cardiology plans to bring her back for cath then I will desensitize right before catherization. I spoke with cardiology and they are going to observe her and call me over the weekend if we need to schedule the cath for tuesday. She will need to be off beta crow x 24 hours. (2) Severe persistent asthma Current Visit: Yes Status: Acute Patient was seen by Dr. Albert this morning and started on prednisone burst and she will be following up with him next week. She will do symbicort 160mcg 2 puffs BID while in hospital. It is difficult to tell if any of her current state is asthma related, however she did not see great improvement with the albuterol. Qualifiers: Qualified Code(s): J45.50 - Severe persistent asthma, uncomplicated Consult Discharge Plan - Plan Referrals: Tiffanie Wiseman CNP [Primary Care Provider] - 03/08/18 12:30 pm
--- NOTE | 2018-03-03 10:53 | Cardiology Progress Note ---
<Jaswinder Hill - Last Filed: 03/03/18 11:05> Date of Encounter: 03/03/18 Time of Encounter: 10:53 Assessment and Plan (1) Chest pain Current Visit: Yes Status: Acute 52 YO F presenting with CP with stress test showing abnormal wall motion and apical ischemia - Patient reports that she is still feeling CP after receiving metoprolol. Continue metoprolol. - Start imdur 30 QD, if patient improves will be okay follow up with patient in clinic and plan for outpatient cath and coordinate ASA desensitization with allergy. - If patient does not improve with imdur will consider cath tuesday and contact allergy about cath plans for desensitization and stop metoprolol. Qualifiers: Ischemic chest pain type: unspecified angina pectoris type Qualified Code(s): I25.9 - Chronic ischemic heart disease, unspecified (2) HTN (hypertension) Current Visit: Yes Status: Acute Not hypertensive today. Qualifiers: Hypertension type: essential hypertension Qualified Code(s): I10 - Essential (primary) hypertension (3) CAD (coronary artery disease) Current Visit: Yes Status: Chronic See recs for chest pain. Qualifiers: Coronary Disease-Associated Artery/Lesion type: [place] artery [place] vs. transplanted heart: [place] heart Associated angina: with stable angina Qualified Code(s): I25.118 - Atherosclerotic heart disease of [place] coronary artery with other forms of angina pectoris Discussion w patient/family: The assessment and plan as outlined above was discussed with the patient and/or family members who expressed understanding and agreement. All questions were answered. Thank you for involving us in the care of your patient. Please call with any questions. Subjective Principal diagnosis: Chest pain Interval history: Patient reports that she is still feeling the same today after receiving metoprolol. Still has substernal CP that radiates to left axila. Allergy saw patient yesterday for ASA desensitization THey need to stop toprolol and optimize asthma control before they can begin ASA desensitization. Additionallly they suggested the possibility that CP is related to uncontrolled asthma so pulmonary was consuted. THey also agree that the CP may be respiratory related and suggsted it could be due to COPD and recommended PFT outpatient. Patient started on symbicort albuterol breathing treatmetx1, predinosne burst. Objective Vital Signs, Last 4 Hours Temp Pulse Resp BP Pulse Ox 03/03/18 08:07 16 98 03/03/18 07:33 97.8 F 65 17 111/67 97 General: Conversant, No Apparent Distress HEENT: Atraumatic, Normocephaly, Mucus Membranes Moist Neck: No JVD, Normal carotid pulses Results 02/28/18 04:47 02/28/18 04:47 Lab Results 03/03/18 04:26 Troponin I < 0.03 Consult Discharge Plan - Plan Referrals: Tiffanie Wiseman, PLUMBING MANAGER [Primary Care Provider] - 03/08/18 12:30 pm <Vivian Blakely - Last Filed: 03/03/18 13:21> Date of Encounter: 03/03/18 Assessment and Plan Discussion w patient/family: The assessment and plan as outlined above was discussed with the patient and/or family members who expressed understanding and agreement. All questions were answered. Thank you for involving us in the care of your patient. Please call with any questions. Objective Vital Signs, Last 4 Hours Temp Pulse Resp BP Pulse Ox 03/03/18 11:49 98.1 F 75 18 105/61 97 Results 02/28/18 04:47 02/28/18 04:47 Lab Results 03/03/18 04:26 Troponin I < 0.03 - Attending Attestation Patient was seen and evaluated independently by me. Findings, assessment and plan were discussed in detail with patient, questions answered. Agree with nurse practitioner's/resident's documentation. Addition as follows, Still has 2 episodes of similar resting chest pain lasting minutes after lopressor. Her cp started 3 wks ago with 1 episode of palpitation. No palpitations recurrence but cp persists 2-4 episodes daily at rest w/ rad to left arm, relief after NTG SL. Pharm SPECT mild ant-apical ischemia (SDS2) with mid-distal ant hypokinesis. vital stable, no W/R/C, RR, no LE edema A: Ho CAD, stable angina with mild ischemia w/o anti-anginal med at home ASA allergey Asthma exacerbation Ho PE/DVT, protein S deficiency, on long-term xarelto HLD, HTN Migraine P: -TTE - will not up-titrate BB now given asthma -imdur 30 trial, if cp improves w/o COY/dizziness, will uptitrate to 60, then ASA desensitization and LHC as outpatient; if cp persists or unable to tolerate imudur, plan both for Tuesday. Vivian Blakely MD, PhD
[2018-03-03] MEDS: Topiramate 25 MG TABLET PO SCH (12:36)
[2018-03-03] MEDS: Loratadine 10 MG TABLET PO SCH (12:36)
[2018-03-03] MEDS ORDERED: Perflutren Lipid Microsphere 1.3 ML in 0.9 % Sodium Chloride 8.7 ML IVP ONE (19:03)
[2018-03-03] MEDS ORDERED: NON-FORMULARY MEDICATION 1 EACH EACH (Trazodone Hcl [Trazodone Hcl] 200 MG) PO SCH (21:00)
[2018-03-03] MEDS: Topiramate 100 MG TABLET PO SCH (21:05)
[2018-03-04] MEDS ORDERED: Melatonin 3 MG TABLET PO PRN (02:16)
[2018-03-04] MEDS: Ondansetron 4 MG/2 ML VIAL IVP PRN (04:51)
[2018-03-04] MEDS: traMADol 50 MG TABLET PO PRN ×3 (04:51→21:54)
[2018-03-04 05:35] LABS: Basophils % 0.3 %; Eosinophils # 0.1 K/mcL (0.0-0.6); Eosinophils % 0.8 %; Hemoglobin 11.1 g/dL (11.5-15.4); Immature Granulocytes % 0.8 % (0-4); Lymphocytes # 1.6 K/mcL (0.6-4.6); Lymphocytes % 18.3 %; Mean Corpuscular HGB Conc 31.7 g/dL (31.6-35.5); Mean Corpuscular Hemoglobin 28.8 pg (28.0-33.3); Mean Corpuscular Volume 90.7 fL (83.0-100.0); Mean Platelet Volume 10.2 fL (9.4-12.4); Monocytes # 0.6 K/mcL (0.0-1.3); Monocytes % 6.5 %; Neutrophils # 6.6 K/mcL (1.6-8.9); Platelet Count 313 K/mcL (140-400); Red Blood Count 3.86 M/mcL (3.82-4.97); Red Cell Distribution Width 13.4 % (11.5-14.5); Segmented Neutrophils % 73.3 %
[2018-03-04 05:53] LABS: BUN/Creatinine Ratio 21 (6-26); Blood Urea Nitrogen 21 mg/dL (6-20); Calcium 8.8 mg/dL (8.6-10.3); Carbon Dioxide 25 mEq/L (23-29); Chloride 104 mEq/L (98-107); Glucose 171 mg/dL (70-105); Osmolality,Calculated 289 (280-300); Potassium 3.8 mEq/L (3.5-5.1); Sodium 136 mEq/L (136-145); eGFR For Non-African Americans 60 (> 60)
[2018-03-04] MEDS: traZODone 50 MG TABLET PO SCH (08:08)
[2018-03-04] MEDS: Topiramate 25 MG TABLET PO SCH (08:08)
[2018-03-04] MEDS: *HR* Rivaroxaban 10 MG TABLET PO SCH (08:08)
[2018-03-04] MEDS: Gabapentin 400 MG CAPSULE PO SCH ×3 (08:09→21:54)
[2018-03-04] MEDS: Perphenazine 8 MG TABLET PO SCH ×3 (08:09→21:54)
[2018-03-04] MEDS: predniSONE 20 MG TABLET PO SCH (08:09)
[2018-03-04] MEDS: Loratadine 10 MG TABLET PO SCH (08:10)
[2018-03-04] MEDS: Famotidine 20 MG TABLET PO SCH (08:10)
[2018-03-04] MEDS: Isosorbide MONOnitrate (24 HR) 30 MG TAB.ER.24H PO SCH (08:10)
[2018-03-04] MEDS: Fluticasone Propionate Nasal 50 MCG/SPRAY BOTTLE NS SCH ×2 (08:11→21:54)
[2018-03-04] MEDS: (Ezetimibe [Zetia] 10 MG) PO SCH (08:11)
[2018-03-04] MEDS: Budesonide/Formoterol 160/4.5 1 PUFF INH IH SCH ×2 (10:09→23:05)
[2018-03-04] MEDS ORDERED: Isosorbide MONOnitrate (24 HR) 30 MG TAB.ER.24H PO ONE (13:30)
--- NOTE | 2018-03-04 14:24 | Internal Med Progress Note ---
Hospitalist Progress Note - Encounter Date of Encounter: 03/04/18 Time of Encounter: 14:22 - Subjective Interval History: Pt still has on and off chest pain. - Exam Vitals: Temp Pulse Resp BP Pulse Ox 97.9 F 68 16 110/66 96 03/04/18 12:07 03/04/18 12:07 03/04/18 12:07 03/04/18 12:07 03/04/18 12:07 Exam: Gen: Alert, awake, Oriented to time,place and person Chest: Diminished breath sounds B/L, No wheezing, No crackles, No rales Heart: S1S2+ RRR No murmurs Abd: Soft, NT, BS +, No organomegaly Ext: No edema, pulses are palpable, No calf tenderness Neuro : Benign findings Skin: No rash. - Assessment and Plan (1) Chest pain Current Visit: Yes Status: Acute Assessment and Plan: Negative troponin 3 reviewed EKG did not show any acute ischemic changes, no ST T changes continue Statin she is allergic to aspirin she is still complaining about intermittent chest pain Her nuclear stress test came back as slightly abnormal - Mild apical ischemia consulted cardiology for further evaluation patient is allergic to contrast does get hives and asthma exacerbation started her on low dose BB Metoprolol 12.5mg BID y/d, she did toelrate well, her BP in 110's today so added Imdur today at 30mg monitor her symptoms closely.. pt is still c/o intermittent CP Allergies specialist on board for possible ASA desensitization (2) HTN (hypertension) Current Visit: Yes Status: Acute Assessment and Plan: Well controlled with current regimen (3) Obesity Current Visit: Yes Status: Chronic Assessment and Plan: Will benefit from weight loss. Diet and exercise education given. (4) CAD (coronary artery disease) Current Visit: Yes Status: Chronic Assessment and Plan: Reports history of 1 stent resumed home medications (5) Bipolar 2 disorder Current Visit: Yes Status: Acute Assessment and Plan: Resumed all home medications (6) Abnormal stress test Current Visit: Yes Status: Acute Assessment and Plan: see above (7) Asthma with acute exacerbation Current Visit: Yes Status: Acute Assessment and Plan: She might have mild exacerbation which might contributing to her current CP too Pulm on board.. appreciate recommendations started on Prednisone 40m Daily x 5 days Cont Symbicort Duoneb (8) Pulmonary embolism Current Visit: Yes Status: Acute Assessment and Plan: Cont Xarelto for now DVT Prophylaxis: on Xarelto. - Time Spent with Patient Total time spent is greater than 50% in coordination of care (as documented) at patient's floor/unit and/or counseling patient: Greater than 35 minutes Plan of Care Discussed with: patient Internal Medicine: Result - Labs CBC & Chem 7: 03/04/18 04:50 03/04/18 04:50 Labs: Short CBC 03/04/18 Range/Units 04:50 WBC 9.0 (4.3-11.1) K/mcL Hgb 11.1 L (11.5-15.4) g/dL Hct 35.0 L (35.3-44.9) % Plt Count 313 (140-400) K/mcL Neutrophils # 6.6 (1.6-8.9) K/mcL BMP 03/04/18 04:50 Sodium 136 Potassium 3.8 Chloride 104 Carbon Dioxide 25 BUN 21 H Creatinine 0.98 Glucose 171 H Calcium 8.8 - Impressions Impressions Echocardiogram 03/03/18 10:49 Impressions: LVEF 65%. Normal LV chamber size, wall thickness and function. Grossly normal right ventricular size and function. No significant valvular dysfunction. Unable to estimate RVSP due to lack of TR jet. Left Ventricular Wall Motion: Rest Echo Findings All wall segments showed normal motion. Findings: Study Quality * Technically sub-optimal due to poor echocardiographic windows. ECG Findings * Normal sinus rhythm. Left Ventricle * LVEF 65%. * Normal LV chamber size, wall thickness and function. * Normal left ventricular diastolic function. Right Ventricle * RV not well visualized, grossly normal right ventricular size and function. Left Atrium * Normal left atrial size. Right Atrium * RA not well visualized, grossly lilly lright atrial size. Interatrial Septum * Interatrial septum not well evaluated. Aortic Valve * Aortic valve not well visualized. * No aortic stenosis. * No aortic regurgitation. Mitral Valve * Mitral valve not well visualized. * No mitral stenosis. * No mitral regurgitation. Tricuspid Valve * Tricuspid valve not well visualized. * No tricuspid stenosis. * No tricuspid regurgitation. * Unable to estimate RVSP due to lack of TR jet. Pulmonic Valve * Pulmonic valve is not well visualized. * No pulmonic stenosis. * No pulmonic regurgitation. Aorta * Normally sized aortic root. Pericardium * The pericardium appears normal. IVC * The IVC is not well evaluated. Consult Discharge Plan - Plan Referrals: Tiffanie Wiseman, [employer]SING [Primary Care Provider] - 03/08/18 12:30 pm (1) Chest pain Qualifiers: Ischemic chest pain type: unspecified angina pectoris type Qualified Code(s): I25.9 - Chronic ischemic heart disease, unspecified (2) HTN (hypertension) Qualifiers: Hypertension type: essential hypertension Qualified Code(s): I10 - Essential (primary) hypertension (3) Obesity Qualifiers: Obesity type: due to excess calories Obesity classification: adult class 3 (BMI >= 40) Serious obesity comorbidity presence: with serious comorbidity Body mass index: BMI 50.0-59.9 Qualified Code(s): E66.01 - Morbid (severe) obesity due to excess calories; Z68.43 - Body mass index (BMI) 50-59.9, adult (4) CAD (coronary artery disease) Qualifiers: Coronary Disease-Associated Artery/Lesion type: [place] artery [place] vs. transplanted heart: [place] heart Associated angina: with stable angina Qualified Code(s): I25.118 - Atherosclerotic heart disease of [place] coronary artery with other forms of angina pectoris
--- NOTE | 2018-03-04 15:34 | Cardiology Progress Note ---
Date of Encounter: 03/04/18 Time of Encounter: 10:30 Assessment and Plan (1) Chest pain Current Visit: Yes Status: Acute Per cardiology: -Presented with stable angina symptoms. -Currenly chest pain, free. -Troponins negative. ECG no acute ischemic changes. -TTE with LVEF preserved, no segmental wall motion abnormalities noted. -Started on anti-anginals, -Stress test abnormal. -Allergic to ASA. -Will increase imdur to 60mg daily. Stopping BB due to need for asa desensitization -Discussed and reviewed with , Patient is stable for discharge from cardiac standpoint. -Can arrange ASA desensitization and LHC as outpatient, however is patient will remain inpatient for non-cardiac concerns, can consider ASA desensitazation, LHC as inpateint. -OF note, also allergic to IVP dye. Qualifiers: Ischemic chest pain type: unspecified angina pectoris type Qualified Code(s): I25.9 - Chronic ischemic heart disease, unspecified (2) CAD (coronary artery disease) Current Visit: Yes Status: Chronic Per cardiology: -Remote history of PCI. -See recs for chest pain. Qualifiers: Coronary Disease-Associated Artery/Lesion type: [place] artery [place] vs. transplanted heart: [place] heart Associated angina: with stable angina Qualified Code(s): I25.118 - Atherosclerotic heart disease of [place] coronary artery with other forms of angina pectoris Discussion w patient/family: The assessment and plan as outlined above was discussed with the patient who expressed understanding and agreement. All questions were answered. Thank you for involving us in the care of your patient. Please call with any questions. Discussed and reviewed with Subjective Principal diagnosis: Chest pain Interval history: Patient reports one episode of chest pain after shower, relieved with rest. Denies current chest pain. Objective Vital Signs, Last 4 Hours Temp Pulse Resp BP Pulse Ox 03/04/18 12:07 97.9 F 68 16 110/66 96 General: Conversant, No Apparent Distress HEENT: Atraumatic, Normocephaly, Mucus Membranes Moist Neck: No JVD, Normal carotid pulses Cardiac: Reg Rate and Rhythm, Normal S1 and S2, No Murmur Lungs: Normal Breath Sounds, No Wheeze, Rales, Rhonchi Neuro: Alert and responsive, No focal deficits noted Abdomen: Soft, Non-Tender Skin: No rashes noted on visualized skin Musculoskeletal: No Chest Wall Tenderness Extremities: No Clubbing, No Cyanosis, No Edema, Normal Pulses Results 03/04/18 04:50 03/04/18 04:50 Lab Results Impressions Echocardiogram 03/03/18 10:49 Impressions: LVEF 65%. Normal LV chamber size, wall thickness and function. Grossly normal right ventricular size and function. No significant valvular dysfunction. Unable to estimate RVSP due to lack of TR jet. Left Ventricular Wall Motion: Rest Echo Findings All wall segments showed normal motion. Findings: Study Quality * Technically sub-optimal due to poor echocardiographic windows. ECG Findings * Normal sinus rhythm. Left Ventricle * LVEF 65%. * Normal LV chamber size, wall thickness and function. * Normal left ventricular diastolic function. Right Ventricle * RV not well visualized, grossly normal right ventricular size and function. Left Atrium * Normal left atrial size. Right Atrium * RA not well visualized, grossly lilly lright atrial size. Interatrial Septum * Interatrial septum not well evaluated. Aortic Valve * Aortic valve not well visualized. * No aortic stenosis. * No aortic regurgitation. Mitral Valve * Mitral valve not well visualized. * No mitral stenosis. * No mitral regurgitation. Tricuspid Valve * Tricuspid valve not well visualized. * No tricuspid stenosis. * No tricuspid regurgitation. * Unable to estimate RVSP due to lack of TR jet. Pulmonic Valve * Pulmonic valve is not well visualized. * No pulmonic stenosis. * No pulmonic regurgitation. Aorta * Normally sized aortic root. Pericardium * The pericardium appears normal. IVC * The IVC is not well evaluated. Active Medications Albuterol Sulfate (Proventil Neb) 2.5 mg IH [id number] PRN; Protocol PRN Reason: Shortness Of Breath/Wheezing Stop: 09/01/18 16:42 Last Admin: 03/02/18 21:32 Dose: 2.5 mg Atorvastatin Calcium (Lipitor) 40 mg PO HS [facility] Stop: 08/30/18 21:01 Last Admin: 03/03/18 21:05 Dose: 40 mg Benztropine Mesylate (Cogentin) 0.5 mg PO DAILY [facility] Stop: 08/30/18 09:01 Last Admin: 03/04/18 08:10 Dose: 0.5 mg Budesonide/Formoterol Fumarate (Symbicort) 2 puff IH BIDR [facility]; Protocol Stop: 09/01/18 22:01 Last Admin: 03/04/18 10:09 Dose: 2 puff Cyclobenzaprine HCl (Flexeril) 5 mg PO BID [facility] Stop: 08/30/18 09:01 Last Admin: 03/04/18 08:09 Dose: 5 mg Duloxetine HCl (Cymbalta) 30 mg PO DAILY [facility] Stop: 08/30/18 09:01 Last Admin: 03/04/18 08:10 Dose: 30 mg Famotidine (Pepcid) 20 mg PO DAILY [facility] Stop: 08/30/18 09:01 Last Admin: 03/04/18 08:10 Dose: 20 mg Fluticasone Propionate (Flonase) 50 mcg NS BID [facility]; Protocol Stop: 08/31/18 21:01 Last Admin: 03/04/18 08:11 Dose: Not Given Gabapentin (Neurontin) 800 mg PO TID [facility] Stop: 08/30/18 09:01 Last Admin: 03/04/18 14:50 Dose: 800 mg Isosorbide Mononitrate (Imdur) 60 mg PO DAILY [facility] Stop: 09/04/18 09:01 Loratadine (Claritin) 5 mg PO DAILY [facility] Stop: 09/02/18 11:31 Last Admin: 03/04/18 08:10 Dose: 5 mg Lurasidone HCl (Latuda) 40 mg PO DAILY [facility] Stop: 08/30/18 09:01 Last Admin: 03/04/18 08:10 Dose: 40 mg Melatonin (Melatonin) 3 mg PO HS PRN PRN Reason: Insomnia Stop: 09/03/18 02:17 Montelukast Sodium (Singulair) 10 mg PO DAILY [facility] Stop: 08/30/18 09:01 Last Admin: 03/04/18 08:10 Dose: 10 mg Nitroglycerin (Nitroglycerin) 0.4 mg SL Q5MIN PRN PRN Reason: Chest Pain Stop: 08/30/18 01:26 Last Admin: 03/03/18 12:38 Dose: 0.4 mg Ondansetron HCl (Zofran) 4 mg IVP Q6HR PRN; Protocol PRN Reason: nausea Stop: 08/31/18 12:01 Last Admin: 03/04/18 04:51 Dose: 4 mg Perphenazine (Trilafon) 8 mg PO TID [facility] Stop: 08/30/18 09:01 Last Admin: 03/04/18 14:50 Dose: 8 mg Pharmacy Profile Note (Patient Taking Own Medication) 0 each PO DAILY [facility] Stop: 08/30/18 09:01 Last Admin: 03/04/18 08:11 Dose: Not Given Prednisone (Prednisone) 40 mg PO DAILY [facility] Stop: 09/02/18 09:01 Last Admin: 03/04/18 08:09 Dose: 40 mg Rivaroxaban (Xarelto) 20 mg PO DAILY [facility] Stop: 08/30/18 09:01 Last Admin: 03/04/18 08:08 Dose: 20 mg Topiramate (Topamax) 50 mg PO DAILY [facility] Stop: 09/02/18 11:31 Last Admin: 03/04/18 08:08 Dose: 50 mg Topiramate (Topamax) 100 mg PO HS [facility] Stop: 09/02/18 21:01 Last Admin: 03/03/18 21:05 Dose: 100 mg Tramadol HCl (Ultram) 100 mg PO QID PRN PRN Reason: Pain Stop: 08/30/18 03:30 Last Admin: 03/04/18 14:49 Dose: 100 mg Trazodone HCl (Trazodone) 150 mg PO DAILY [facility] Stop: 08/30/18 09:01 Last Admin: 03/04/18 08:08 Dose: 150 mg Laboratory Tests 02/28/18 03/01/18 03/03/18 04:47 04:07 04:26 Hgb Creatinine Troponin I < 0.03 < 0.03 < 0.03 03/04/18 03/04/18 04:50 04:50 Hgb 11.1 L Creatinine 0.98 Troponin I - Imaging and Cardiology Chest Xray: report reviewed Stress Test: report reviewed Echo: report reviewed - EKG Interpretation EKG results cardiology: other (Telemetry reviewed with average HR previous 12 hours noted to be 74, SR. PVCs and PACs noted.) Consult Discharge Plan - Plan Referrals: Tiffanie Wiseman, BILLPOSTER [Primary Care Provider] - 03/08/18 12:30 pm
--- NOTE | 2018-03-04 20:30 | Electrocardiograph Report ---
[address] [place], [place] [address] Test Date: 2018-02-28 Pat Name: Bettina Sanchez Department: 113 Room: 3B Gender: F Inspector Assembly: : 1965 Requested By: Dorys Vásquez Order Number: [id number] Reading MD: Vivian Blakely Measurements Intervals [place] Rate: 80 P: 67 TN: 156 QRS: -2 QRSD: 109 T: 3 QT: 388 QTc: 424 Interpretive Statements SINUS RHYTHM Electronically Signed On 03-04-2018 20:28:40 EST by Vivian Blakely
--- NOTE | 2018-03-04 21:41 | Electrocardiograph Report ---
[address] [address] Test Date: 2018-02-28 Pat Name: Bettina Sanchez Department: 113 Room: 3B Gender: F Director Market Research: REAL : 1965 Requested By: Kevin Haskins Order Number: [id number] Reading MD: Vivian Blakely Measurements Intervals [place] Rate: 83 P: 70 NE: 142 QRS: 6 QRSD: 88 T: 17 QT: 375 QTc: 415 Interpretive Statements SINUS RHYTHM Electronically Signed On 03-04-2018 21:40:07 EST by Vivian Blakely
[2018-03-04] MEDS: Topiramate 100 MG TABLET PO SCH (21:54)
[2018-03-05] MEDS: Ondansetron 4 MG/2 ML VIAL IVP PRN ×4 (01:11→21:51)
--- NOTE | 2018-03-05 08:35 | Electrocardiograph Report ---
[address] [place], [place] [address] Test Date: 2018-03-03 Pat Name: Bettina Sanchez Department: 113 Room: 3B Gender: F Wool Mixer: MARY : 1965 Requested By: Selina Albrecht Order Number: [id number] Reading MD: Lorelei Gates Measurements Intervals [place] Rate: 71 P: 43 [place]: 161 QRS: 5 QRSD: 101 T: 0 QT: 396 QTc: 418 Interpretive Statements SINUS RHYTHM Electronically Signed On 03-05-2018 8:33:54 EST by Lorelei Gates
[2018-03-05] MEDS ORDERED: Isosorbide MONOnitrate (24 HR) 60 MG TAB.ER.24H PO SCH (09:00)
[2018-03-05] MEDS: (Ezetimibe [Zetia] 10 MG) PO SCH (09:16)
[2018-03-05] MEDS: Famotidine 20 MG TABLET PO SCH (09:17)
[2018-03-05] MEDS: Perphenazine 8 MG TABLET PO SCH ×3 (09:17→21:52)
[2018-03-05] MEDS: *HR* Rivaroxaban 10 MG TABLET PO SCH (09:17)
[2018-03-05] MEDS: Gabapentin 400 MG CAPSULE PO SCH ×3 (09:17→21:53)
[2018-03-05] MEDS: Loratadine 10 MG TABLET PO SCH (09:17)
[2018-03-05] MEDS: predniSONE 20 MG TABLET PO SCH (09:17)
[2018-03-05] MEDS: Fluticasone Propionate Nasal 50 MCG/SPRAY BOTTLE NS SCH ×2 (09:17→22:00)
[2018-03-05] MEDS: Topiramate 25 MG TABLET PO SCH (09:18)
[2018-03-05] MEDS: traZODone 50 MG TABLET PO SCH (09:18)
[2018-03-05] MEDS: traMADol 50 MG TABLET PO PRN ×2 (09:20→17:37)
--- NOTE | 2018-03-05 09:56 | Discharge Summary ---
- NOTES TO OUTPATIENT PROVIDER Notes to Outpatient Provider: f/u with cardiology within a week for outpt [facility]. Orders not resulted at time of discharge: Pending orders 02/28/18 12:20 NM daniel perf SPECT multi [NM] Routine Date of Encounter: 03/05/18 Time of Encounter: 09:54 - Discharge Diagnosis (1) Chest pain Priority: Primary Status: Acute Qualifiers: Ischemic chest pain type: unspecified angina pectoris type Qualified Code(s): I25.9 - Chronic ischemic heart disease, unspecified (2) HTN (hypertension) Priority: Secondary Status: Chronic Qualifiers: Hypertension type: essential hypertension Qualified Code(s): I10 - Essential (primary) hypertension (3) Obesity Priority: Secondary Status: Chronic Qualifiers: Obesity type: due to excess calories Obesity classification: adult class 3 (BMI >= 40) Serious obesity comorbidity presence: with serious comorbidity Body mass index: BMI 50.0-59.9 Qualified Code(s): E66.01 - Morbid (severe) obesity due to excess calories; Z68.43 - Body mass index (BMI) 50-59.9, adult (4) CAD (coronary artery disease) Priority: Secondary Status: Chronic Qualifiers: Coronary Disease-Associated Artery/Lesion type: [place] artery [place] vs. transplanted heart: [place] heart Associated angina: with stable angina Qualified Code(s): I25.118 - Atherosclerotic heart disease of [place] coronary artery with other forms of angina pectoris (5) Bipolar 2 disorder Priority: Secondary Status: Chronic (6) Abnormal stress test Priority: Primary Status: Acute (7) Asthma with acute exacerbation Priority: Secondary Status: Resolved Qualifiers: Asthma severity: unspecified severity Asthma persistence: unspecified Qualified Code(s): J45.901 - Unspecified asthma with (acute) exacerbation (8) Pulmonary embolism Priority: Secondary Status: Chronic Qualifiers: Pulmonary embolism type: other Chronicity: unspecified Acute cor pulmonale presence: without acute cor pulmonale Qualified Code(s): I26.99 - Other pulmonary embolism without acute cor pulmonale Hospital course: Ms. Sanchez is a 52 year old obese female with a history of hypertension and coronary artery disease with chronic lumbago who presents today on transfer from [facility] after being taken there for chest pain that started after undergoing injections to her lumbar spine for pain. She cannot specify what exactly was injected however she says it started when she was in recovery and felt it across her precordium with radiation to her left axilla. She denies accompanying shortness of breath or lightheadedness. She reports short-lived relief with sublingual nitroglycerin. While at [facility] it is reported that her EKG was non- ischemic with a negative initial troponin. D-dimer was elevated but a subsequent CTA was negative for PE. She underwent further workup for ACS. EKG and serial troponin were unrevealing. She underwent a nuclear stress test on 03/01/2018, which showed reversible apical-septal perfusion defect of small size and mild intensity with hypokinesis, SDS=2, no infarct on perfusion study, stress LVEF 67%. An echocardiogram was performed on 03/03, which revealed preserved EF, no segmental wall motion abnormalities. Chest pain has been improved after administration of isosorbide. After discussed with cardiology, decision wad made for [facility] as outpatient. Pt is allergic to aspirin, she needs aspirin de-sensitization before cardiac cath. Metoprolol was dc'ed. She will be discharged home today and f/u with cardiology as as scheduled. Cardiology will arrange aspirin de-sensitizatio n with Dr. Denise. Discharge discussed with: patient Time spent discussing smoking cessation with patient: more than 10 minutes - Time Spent with Patient Total time spent providing and/or coordinating discharge services: Greater than 30 minutes - Discharge Medications Prescriptions: Nitroglycerin 0.4 mg SL Q5MIN PRN #10 tab.subl PRN Reason: Chest Pain Isosorbide MONOnitrate (24 HR) [Imdur] 60 mg PO DAILY #30 tab.er.24h Perphenazine [Trilafon] 8 mg PO TID #20 tablet Home Medications: Atorvastatin [Lipitor] 40 mg PO HS 02/28/18 [History] Benztropine [Cogentin] 0.5 mg PO DAILY 02/28/18 [History] Cyclobenzaprine HCl 5 mg PO BID 02/28/18 [History] DULoxetine [Cymbalta] 30 mg PO DAILY 02/28/18 [History] Fluticasone Propionate Nasal [Flonase] 1 puff IH BID 02/28/18 [History] Fluticasone/Vilanterol [Breo Ellipta 100-25 Mcg INH] 1 each IH DAILY 02/28/18 [History] Gabapentin [Neurontin] 800 mg PO TID 02/28/18 [History] Ipratropium/Albuterol Neb [Duoneb] 3 ml IH TID PRN 02/28/18 [History] Levocetirizine Dihydrochloride [Allergy Relief] 5 mg PO DAILY 02/28/18 [History] Lisinopril [Zestril] 5 mg PO DAILY 02/28/18 [History] Lurasidone [Latuda] 40 mg PO DAILY 02/28/18 [History] Meclizine HCl [Verticalm] 25 mg PO DAILY 02/28/18 [History] Montelukast [Singulair] 10 mg PO DAILY 02/28/18 [History] Ranitidine HCl [Acid Deck Lid Fitter] 150 mg PO DAILY 02/28/18 [History] Rivaroxaban [Xarelto] 20 mg PO DAILY 02/28/18 [History] Topiramate 50 mg PO DAILY 02/28/18 [History] Topiramate 100 mg PO HS 02/28/18 [History] Trazodone HCl 200 mg PO HS 02/28/18 [History] Isosorbide MONOnitrate (24 HR) [Imdur] 60 mg PO DAILY #30 tab.er.24h 03/05/18 [Rx] Nitroglycerin 0.4 mg SL Q5MIN PRN #10 tab.subl 03/05/18 [Rx] Patient Taking Own Medication 0 each PO DAILY each 03/05/18 [Rx] Perphenazine [Trilafon] 8 mg PO TID #20 tablet 03/05/18 [Rx] Allergies/Adverse Reactions: Allergy/AdvReac Type Severity Reaction Status Date / Time acetaminophen [From Percocet] Allergy Hives Verified 02/28/18 02:02 aspirin Allergy Difficulty Verified 02/28/18 02:02 Breathing cephalexin Allergy Difficulty Verified 02/28/18 02:02 Breathing ibuprofen [From Motrin] Allergy Difficulty Verified 02/28/18 02:02 Breathing Iodinated Contrast- Oral and Allergy Difficulty Verified 02/28/18 02:02 IV Dye Breathing Latex, Natural Rubber Allergy Difficulty Verified 02/28/18 02:02 Breathing milk Allergy Wheezing Verified 02/28/18 02:02 morphine Allergy Difficulty Verified 02/28/18 02:02 Breathing Oxycodone [From Percocet] Allergy Hives Verified 02/28/18 02:02 shellfish derived Allergy Difficulty Verified 02/28/18 02:02 Breathing Date of admission: 02/28/18 00:46 Primary care physician: Tiffanie Wiseman CNP Consults: 03/02/18 09:46 Consult to Cardiology [CONS] Routine Comment: Consulting Provider: [facility] [place] Reason for Consult: abnormal stress test Time Notified: 09:46 Call Completed: Yes 03/02/18 14:35 Consult to Allergy/Immunology [CONS] Routine Consulting Provider: [facility] [place] Reason for Consult: Aspirin desensitization for heart disease patient Call Completed: Yes 03/02/18 16:43 Consult to Pulmonology [CONS] Routine Consulting Provider: [facility] [place] Reason for Consult: asthma Time Notified: 17:00 Call Completed: Yes Anticipated date of discharge: 03/05/18 - Constitutional Vitals: Temp Pulse Resp BP Pulse Ox 97.8 F 92 16 134/66 98 03/05/18 08:20 03/05/18 08:20 03/05/18 08:20 03/05/18 08:20 03/05/18 08:20 General appearance: Present: cooperative, A&O X 3, answers questions appropriately Exam: Gen: Alert, awake, Oriented to time,place and person Chest: Diminished breath sounds B/L, No wheezing, No crackles, No rales Heart: S1S2+ RRR No murmurs Abd: Soft, NT, BS +, No organomegaly Ext: No edema, pulses are palpable, No calf tenderness Neuro : Benign findings Skin: No rash. - Patient Status Disposition: Home, Self-Care Condition: Fair Functional capacity at discharge: independent ambulation Overall status at discharge: patient is progressing back to baseline - Discharge Instructions Follow Up With: Tiffanie Wiseman CNP [Primary Care Provider] - 03/08/18 12:30 pm - Diet and Activity Activity: increase activity as tolerated Diet: diabetic diet, low fat, low cholesterol, low salt diet
[2018-03-05] MEDS: Budesonide/Formoterol 160/4.5 1 PUFF INH IH SCH ×2 (10:25→22:00)
[2018-03-05] MEDS ORDERED: Aspirin desensitization 1 mg/ml PO ONE (11:00)
--- NOTE | 2018-03-05 11:33 | Cardiology Progress Note ---
Date of Encounter: 03/05/18 Time of Encounter: 11:29 Assessment and Plan (1) Chest pain Current Visit: Yes Status: Acute Per cardiology: Presented with stable angina symptoms in female with history of remote PCI. Intermittent chest pain continues despite bb and antianginals. Troponins negative. ECG no acute ischemic changes. TTE with LVEF preserved, no segmental wall motion abnormalities noted. Stress test found to be abnormal. LHC was recommended for further evaluation in-pt or out. Due to patient having continued chest pain we will proceed in-pt. Pt is allergic to ASA. Dr. Denise was consulted and notified pt decided to stay to have LHC. Plan for desensitization tomorrow in the morning. She is also allergic to IV dye also. Discussed with Dr. Blakely, we will start pre- medication for IV dye allergy directly after asa desensitization. Recommends solumedrol 40 mg 5 hr prior to procedure and re-peat one hr prior, benadryl 50 mg 1hr prior with pepcid. Plan for LHC tomorrow afternoon. Hold BB due to need for asa desensitization. Continue imdur and statin. Qualifiers: Ischemic chest pain type: unspecified angina pectoris type Qualified Code(s): I25.9 - Chronic ischemic heart disease, unspecified (2) CAD (coronary artery disease) Current Visit: Yes Status: Chronic Per cardiology: -Remote history of PCI. -See recs for chest pain. Qualifiers: Coronary Disease-Associated Artery/Lesion type: [place] artery [place] vs. transplanted heart: [place] heart Associated angina: with stable angina Qualified Code(s): I25.118 - Atherosclerotic heart disease of [place] coronary artery with other forms of angina pectoris (3) Abnormal stress test Current Visit: Yes Status: Acute (4) Obesity Current Visit: Yes Status: Chronic Healthy heart diet discussed. Pt noted to be eating high carb meals and drinking excessive soda. Qualifiers: Obesity type: due to excess calories Obesity classification: adult class 3 (BMI >= 40) Serious obesity comorbidity presence: with serious comorbidity Body mass index: BMI 50.0-59.9 Qualified Code(s): E66.01 - Morbid (severe) obesity due to excess calories; Z68.43 - Body mass index (BMI) 50-59.9, adult Discussion w patient/family: The assessment and plan as outlined above was discussed with the patient and/or family members who expressed understanding and agreement. All questions were answered. Thank you for involving us in the care of your patient. Please call with any questions. Subjective Principal diagnosis: Chest pain Interval history: Pt c/o continued intermittent chest pain relieved with pain medication and SL NTG at times . Objective Vital Signs, Last 4 Hours Temp Pulse Resp BP Pulse Ox 03/05/18 10:25 16 99 03/05/18 08:20 97.8 F 92 16 134/66 98 General: Conversant, No Apparent Distress HEENT: Atraumatic, Normocephaly, Mucus Membranes Moist Neck: No JVD, Normal carotid pulses Cardiac: Reg Rate and Rhythm, Normal S1 and S2, No Murmur Lungs: Normal Breath Sounds, No Wheeze, Rales, Rhonchi Neuro: Alert and responsive, No focal deficits noted Abdomen: Soft, Non-Tender Skin: No rashes noted on visualized skin Musculoskeletal: No Chest Wall Tenderness Extremities: No Clubbing, No Cyanosis, No Edema, Normal Pulses Results 03/04/18 04:50 03/04/18 04:50 - Imaging and Cardiology Stress Test: report reviewed Echo: report reviewed - EKG Interpretation EKG results cardiology: personally reviewed Consult Discharge Plan - Plan Instructions: Nitroglycerin, Rapid Release (By mouth), Chest Pain (DC) Additional Instructions: [facility] will call you with an appointment time and day for your follow up, heart cath, and asprin desensitization. Please call their office with the number provided if you do not hear from them by Wednesday 03/07. Follow-up appointments: If there is not an appointment listed below, please call your physician and shanel doan a follow-up appointment. If you have congestive heart failure and your symptoms return, make an appointment with your physician. Medication List: Carry an up to date list of medications you are taking at all time. We have given you an updated medication list including any new medications that you have been prescribed. Please provide that list to your primary provider Symptoms: If your condition changes or you experience any of the following sympt oms, notify your physician immediately: Unusual or worsening pain, fever, persistent nausea and vomiting, bleeding, increase in swelling (especially in your legs), sudden weight gain, extreme dizziness, chest pain, increased drainage or redness from a wound or incision. Go to the emergency department if you experience a problem with breathing. Weights: If you have a history of swelling or shortness of breath, weigh yourself daily and notify your physician if you have a weight gain of two or more pounds in one day or 5 or more pounds in a week. If you experience any of the warning signs for stroke: Sudden numbness or weakness of the face, arm or leg; especially on one side of the body, sudden confusion, trouble speaking or understanding, sudden trouble seeing in one or both eyes, sudden trouble walking, dizziness, loss of balance or coordination, sudden sever headache with no cause; Call 911 or go to the emergency room. Stroke is a medical emergency. Some risk factors for stroke: Age, cigarette smoking, diabetes, excessive alcohol consumption, family history, high blood pressure, overweight, physical inactivity, prior stroke, heart attack, diagnosis of carotid artery stenosis or other artery disease. If you smoke, STOP: Smoking or tobacco use significantly increases your risk of heart and lung disease. Your chance of disease greatly increases if you continue to smoke. For more information, call the [place] tobacco quit line for smoking cessation 1-383-SHOK-NOW ( ) Referrals: [facility] [Provider Group] Tiffanie Wiseman CNP [Primary Care Provider] - 03/08/18 12:30 pm Prescriptions: Nitroglycerin 0.4 mg SL Q5MIN PRN #10 tab.subl PRN Reason: Chest Pain Isosorbide MONOnitrate (24 HR) [Imdur] 60 mg PO DAILY #30 tab.er.24h Perphenazine [Trilafon] 8 mg PO TID #20 tablet
--- NOTE | 2018-03-05 11:58 | Internal Med Progress Note ---
Hospitalist Progress Note - Encounter Date of Encounter: 03/05/18 Time of Encounter: 11:56 - Subjective Interval History: Pt still has on and off chest pain. - Exam Vitals: Temp Pulse Resp BP Pulse Ox 97.8 F 92 16 134/66 99 03/05/18 08:20 03/05/18 08:20 03/05/18 10:25 03/05/18 08:20 03/05/18 10:25 Exam: Gen: Alert, awake, Oriented to time,place and person Chest: Diminished breath sounds B/L, No wheezing, No crackles, No rales Heart: S1S2+ RRR No murmurs Abd: Soft, NT, BS +, No organomegaly Ext: No edema, pulses are palpable, No calf tenderness Neuro : Benign findings Skin: No rash. - Assessment and Plan (1) Chest pain Current Visit: Yes Status: Acute Assessment and Plan: Negative troponin 3 reviewed EKG did not show any acute ischemic changes, no ST T changes continue Statin she is allergic to aspirin she is still complaining about intermittent chest pain Her nuclear stress test came back as slightly abnormal - Mild apical ischemia patient is allergic to contrast, does get hives and asthma exacerbation started her on low dose BB Metoprolol 12.5mg BID y/d, she did toelrate well, her BP in 110's today Imdur increased to 60 mg daily monitor her symptoms closely. pt is still c/o intermittent CP Allergies specialist on board for ASA desensitization on Tuesday morning. [facility] planned Tuesday afternoon. (2) HTN (hypertension) Current Visit: No Status: Chronic Assessment and Plan: Well controlled with current regimen (3) Obesity Current Visit: No Status: Chronic Assessment and Plan: Will benefit from weight loss. Diet and exercise education given. (4) CAD (coronary artery disease) Current Visit: Yes Status: Acute Assessment and Plan: Reports history of 1 stent resumed home medications, medication adjustment as above. (5) Bipolar 2 disorder Current Visit: No Status: Chronic Assessment and Plan: Resumed all home medications (6) Asthma with acute exacerbation Current Visit: Yes Status: Resolved (7) Pulmonary embolism Current Visit: No Status: Chronic Assessment and Plan: Cont Xarelto for now DVT Prophylaxis: continue Xarelto. - Time Spent with Patient Total time spent is greater than 50% in coordination of care (as documented) at patient's floor/unit and/or counseling patient: Greater than 35 minutes Plan of Care Discussed with: patient Internal Medicine: Result - Labs CBC & Chem 7: 03/04/18 04:50 03/04/18 04:50 Consult Discharge Plan - Plan Instructions: Nitroglycerin, Rapid Release (By mouth), Chest Pain (DC) Additional Instructions: [facility] will call you with an appointment time and day for your follow up, heart cath, and asprin desensitization. Please call their office with the number provided if you do not hear from them by Wednesday 03/07. Follow-up appointments: If there is not an appointment listed below, please call your physician and schedule a follow-up appointment. If you have congestive heart failure and your symptoms return, make an appointment with your physician. Medication List: Carry an up to date list of medications you are taking at all time. We have given you an updated medication list including any new medications that you have been prescribed. Please provide that list to your primary provider Symptoms: If your condition changes or you experience any of the following symptoms, notify your physician immediately: Unusual or worsening pain, fever, persistent nausea and vomiting, bleeding, increase in swelling (especially in your legs), sudden weight gain, extreme dizziness, chest pain, increased drainage or redness from a wound or incision. Go to the emergency department if you experience a problem with breathing. Weights: If you have a history of swelling or shortness of breath, weigh yourself daily and notify your physician if you have a weight gain of two or more pounds in one day or 5 or more pounds in a week. If you experience any of the warning signs for stroke: Sudden numbness or weakness of the face, arm or leg; especially on one side of the body, sudden confusion, trouble speaking or understanding, sudden trouble seeing in one or both eyes, sudden trouble walking, dizziness, loss of balance or coordination, sudden sever headache with no cause; Call 911 or go to the emergency room. Stroke is a medical emergency. Some risk factors for stroke: Age, cigarette smoking, diabetes, excessive alcohol consumption, family history, high blood pressure, overweight, physical inactivity, prior stroke, heart attack, diagnosis of carotid artery stenosis or other artery disease. If you smoke, STOP: Smoking or tobacco use significantly increases your risk of heart and lung disease. Your chance of disease greatly increases if you continue to smoke. For more information, call the [place] tobacco quit line for smoking cessation 3-105-CANP-NOW ( ) Referrals: [facility] [Provider Group] Tiffanie Wiseman CNP [Primary Care Provider] - 03/08/18 12:30 pm Prescriptions: Nitroglycerin 0.4 mg SL Q5MIN PRN #10 tab.subl PRN Reason: Chest Pain Isosorbide MONOnitrate (24 HR) [Imdur] 60 mg PO DAILY #30 tab.er.24h Perphenazine [Trilafon] 8 mg PO TID #20 tablet (1) Chest pain Qualifiers: Ischemic chest pain type: unspecified angina pectoris type Qualified Code(s): I25.9 - Chronic ischemic heart disease, unspecified (2) HTN (hypertension) Qualifiers: Hypertension type: essential hypertension Qualified Code(s): I10 - Essential (primary) hypertension (3) Obesity Qualifiers: Obesity type: due to excess calories Obesity classification: adult class 3 (BMI >= 40) Serious obesity comorbidity presence: with serious comorbidity Body mass index: BMI 50.0-59.9 Qualified Code(s): E66.01 - Morbid (severe) obesity due to excess calories; Z68.43 - Body mass index (BMI) 50-59.9, adult (4) CAD (coronary artery disease) Qualifiers: Coronary Disease-Associated Artery/Lesion type: [place] artery [place] vs. [place] heart: [place] heart Associated angina: with stable angina Qualified Code(s): I25.118 - Atherosclerotic heart disease of [place] coronary artery with other forms of angina pectoris (6) Asthma with acute exacerbation Qualifiers: Asthma severity: unspecified severity Asthma persistence: unspecified Qualified Code(s): J45.901 - Unspecified asthma with (acute) exacerbation (7) Pulmonary embolism Qualifiers: Pulmonary embolism type: other Chronicity: unspecified Acute cor pulmonale presence: without acute cor pulmonale Qualified Code(s): I26.99 - Other pulmonary embolism without acute cor pulmonale
[2018-03-05] MEDS ORDERED: Melatonin 3 MG TABLET PO PRN (21:00)
[2018-03-05] MEDS ORDERED: Albuterol 2.5 MG/3 ML NEBULIZER IH PRN (21:00)
[2018-03-05] MEDS: Topiramate 100 MG TABLET PO SCH (21:53)
[2018-03-06] MEDS: Nitroglycerin 0.4 MG TAB.SUBL SL PRN (02:53)
[2018-03-06] MEDS ORDERED: Aspirin desensitization 1 mg/ml PO ONE ×5 (06:00)
[2018-03-06] MEDS ORDERED: methylPREDNISolone 125 MG/2 ML VIAL IVP PRN ×2 (06:00)
[2018-03-06] MEDS ORDERED: *HR* EPINEPHrine 1 MG/ML AMPUL IV PRN ×2 (06:00)
[2018-03-06] MEDS ORDERED: Aspirin 81 MG TAB.CHEW PO ONE ×3 (06:00→08:30)
[2018-03-06] MEDS ORDERED: Famotidine 20 MG/2 ML VIAL IVP PRN ×2 (06:00)
[2018-03-06] MEDS ORDERED: Aspirin desensitization 4 mg/ml PO ONE ×8 (06:00)
[2018-03-06] MEDS ORDERED: *HR* EPINEPHrine 1 MG/ML AMPUL IM PRN ×2 (06:00)
[2018-03-06] MEDS: Ondansetron 4 MG/2 ML VIAL IVP PRN ×2 (06:25→20:13)
[2018-03-06] MEDS ORDERED: MethylPREDNISolone 40 MG/ML VIAL IVP ONE ×2 (07:30→12:00)
[2018-03-06] MEDS: Budesonide/Formoterol 160/4.5 1 PUFF INH IH SCH ×2 (07:49→19:55)
--- NOTE | 2018-03-06 08:57 | Event Note ---
Date of Encounter: 03/06/18 Time of Encounter: 08:55 - Cardiology Event Note Pt s/p asa desensitization. Mild nausea during but now resolved. Start IV solumedrol for IV dye allergy. Plan for LHC later today for abnormal stress test and persistent angina. C/o CP last night releived with NTG.
[2018-03-06] MEDS ORDERED: Isosorbide MONOnitrate (24 HR) 60 MG TAB.ER.24H PO SCH (09:00)
[2018-03-06] MEDS ORDERED: Loratadine 10 MG TABLET PO SCH (09:00)
[2018-03-06] MEDS: Topiramate 25 MG TABLET PO SCH (09:10)
[2018-03-06] MEDS: Famotidine 20 MG TABLET PO SCH (09:10)
[2018-03-06] MEDS: Perphenazine 8 MG TABLET PO SCH ×3 (09:10→20:08)
[2018-03-06] MEDS: Gabapentin 400 MG CAPSULE PO SCH ×3 (09:10→20:08)
--- NOTE | 2018-03-06 11:38 | Allergy Progress Note ---
Date of Encounter: 03/06/18 Time of Encounter: 05:30 Subjective Narrative: Patient is still having chest pain so she is planned for catherization this afternoon. She is ready to do aspirin desensitization this morning. She is not having any new issues. Objective Vital Signs - Last 8 Hours Temp Pulse Resp BP Pulse Ox 03/06/18 10:00 72 16 122/74 95 03/06/18 09:00 69 18 129/81 98 03/06/18 08:00 69 16 119/77 96 03/06/18 07:49 16 98 03/06/18 07:00 68 20 121/78 95 03/06/18 06:38 68 03/06/18 06:00 72 22 118/77 98 03/06/18 05:00 70 20 117/76 96 03/06/18 04:33 97.9 F 03/06/18 04:00 69 16 104/68 96 Intake and Output 03/05/18 03/06/18 03/06/18 23:59 07:59 15:59 Intake Total 0 / 0 0 / 0 50 / 50 Output Total 150 / 150 300 / 300 Balance 0 / 0 -150 / -150 -250 / -250 Intake: Oral 0 / 0 0 / 0 50 / 50 Output: Urine 150 / 150 300 / 300 Other: Weight 125.4 kg 125.4 kg Blood Glucose* 238 Patient Weight 03/06/18 23:59 Weight 125.4 kg - General physical appearance obese - Eyes PERRL - ENT normal nares - Neck no lymphadectomy - Respiratory normal respiratory effort, clear to auscultation - Abdomen non tender - Integumentary no rash - Neurologic no confused (heart -rrrr) - Labs 03/04/18 04:50 03/04/18 04:50 - Assessment and Plan (1) Adverse effect of unspecified drugs, medicaments and biological substances, initial encounter Current Visit: Yes Status: Acute 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 Patient is in ICU ready for desensitization. She has been off her beta crow for 24 hours. Her asthma is controlled at this time. Written consent reviewed and signed. (2) Severe persistent asthma Current Visit: Yes Status: Acute Asthma is well controlled. She is using the symbicort 160mcg 2 puffs BID and received solumedrol x 4 days. Qualifiers: Qualified Code(s): J45.50 - Severe persistent asthma, uncomplicated Consult Discharge Plan - Plan Instructions: Nitroglycerin, Rapid Release (By mouth), Chest Pain (DC) Additional Instructions: [facility] will call you with an appointment time and day for your follow up, heart cath, and asprin desensitization. Please call their office with the number provided if you do not hear from them by Wednesday 03/07. Follow-up appointments: If there is not an appointment listed below, please call your physician and schedule a follow-up appointment. If you have congestive heart failure and your symptoms return, make an appointment with your physician. Medication List: Carry an up to date list of medications you are taking at all time. We have given you an updated medication list including any new medications that you have been prescribed. Please provide that list to your primary provider Symptoms: If your condition changes or you experience any of the following symptoms, notify your physician immediately: Unusual or worsening pain, fever, persistent nausea and vomiting, bleeding, increase in swelling (especially in your legs), sudden weight gain, extreme dizziness, chest pain, increased drainage or redness from a wound or incision. Go to the emergency department if you experience a problem with breathing. Weights: If you have a history of swelling or shortness of breath, weigh yourself daily and notify your physician if you have a weight gain of two or more pounds in one day or 5 or more pounds in a week. If you experience any of the warning signs for stroke: Sudden numbness or weakness of the face, arm or leg; especially on one side of the body, sudden confusion, trouble speaking or understanding, sudden trouble seeing in one or both eyes, sudden trouble walking, dizziness, loss of balance or coordination, sudden sever headache with no cause; Call 911 or go to the emergency room. Stroke is a medical emergency. Some risk factors for stroke: Age, cigarette smoking, diabetes, excessive alcohol consumption, family history, high blood pressure, overweight, physical inactivity, prior stroke, heart wilber ck, diagnosis of carotid artery stenosis or other artery disease. If you smoke, STOP: Smoking or tobacco use significantly increases your risk of heart and lung disease. Your chance of disease greatly increases if you continue to smoke. For more information, call the [place] tobacco quit line for smoking cessation NOW ( ) Referrals: [facility] [Provider Group] Tiffanie Wiseman, CORIE [Primary Care Provider] - 03/08/18 12:30 pm Prescriptions: Nitroglycerin 0.4 mg SL Q5MIN PRN #10 tab.subl PRN Reason: Chest Pain Isosorbide MONOnitrate (24 HR) [Imdur] 60 mg PO DAILY #30 tab.er.24h Perphenazine [Trilafon] 8 mg PO TID #20 tablet
--- NOTE | 2018-03-06 11:46 | Allergy Procedure Note ---
Date of procedure: 03/06/18 Pre-op diagnosis: adverse effect of drug, medicament or biological substance Post-op diagnosis: same Procedure: Aspirin Desensitization Patient with history of aspirin allergy. See consult note for HPI details. I discussed risk and benefits with patient. I explained to patient the risk of an allergic reaction including itching, hives, swelling, airway closure, diarrhea, vomiting, drop in blood pressure, heart attack, asthma attach or . Lissy muniz consent obtained. She has stopped her beta crow for 24 hours prior to procedure. Patient was premedicated with singulair 10mg. Epinephrine, solumedrol, benadryl and pepcid at bedside. Dose 1- 0.1mg aspirin given PO, patient observed closely x 15 minutes, exam unchanged, patient denies any new complaints, vitals unchanged(see vitals recorded under vitals section) Dose 2- 0.3mg aspirin given PO, patient observed closely x 15 minutes, exam unchanged, patient began to have moderate nausea and zofran was given, I observed her for an additional 15minutes and her nausea completely resolved, vitals unchanged(see vitals recorded under vitals section) Dose 3- 1mg aspirin given PO, patient observed closely x 15 minutes, exam unchanged, patient denies any new complaints, vitals unchanged(see vitals recorded under vitals section) Dose 4- 3mg aspirin given PO, patient observed closely x 15minutes and she began to have some nausea again, exam unchanged, she was monitored another 25 minutes w, vitals unchanged(see vitals recorded under vitals section) Dose 5-10mg aspirin given PO, patient observed closely x 20 minutes, exam unchanged, patient denies any new complaints and her nausea resolved, vitals unchanged(see vitals recorded under vitals section) Dose 6-20mgmg aspirin given PO, patient observed closely x 20 minutes, exam unchanged, patient denies any new complaints, vitals unchanged(see vitals recorded under vitals section) Dose 7-40mg aspirin given PO, patient observed closely x 15 minutes, exam unchanged, patient denies any new complaints, vitals unchanged(see vitals recor ded under vitals section) Dose 8-81mg aspirin given PO, patient observed closely x 60 minutes, exam unchanged, patient denies any new complaints, vitals unchanged(see vitals recorded under vitals section) Patient has tolerated the procedure well. She is desensitized to aspirin. She should take 81mg daily. If she goes longer than 48 hours without aspirin she should then not take it and would need the procedure again. Total time spent with patient 3hours 35minutes. Anesthesia: none Was there an senior care assistant present: Yes Head Worker: Patricia Ulloa Condition: stable
[2018-03-06] MEDS ORDERED: 0.9 % Sodium Chloride 1,000 ML ONE ×2 (14:09→14:10)
[2018-03-06] MEDS ORDERED: Nitroglycerin 1,000 MCG/10 ML VIAL IV ONE (14:10)
[2018-03-06] MEDS ORDERED: ISOVUE-370 200 ML INFUS..BTL ONE (14:10)
[2018-03-06] MEDS: Fluticasone Propionate Nasal 50 MCG/SPRAY BOTTLE NS SCH ×2 (14:10→20:14)
[2018-03-06] MEDS ORDERED: *HR* Heparin 10,000 UNIT/10 ML VIAL ONE (14:10)
[2018-03-06] MEDS ORDERED: Heparin 1,000 UNITS/500 mL 500 ML ONE (14:10)
[2018-03-06] MEDS ORDERED: *HR* FentaNYL (PF) 100 MCG/2 ML VIAL ONE (15:01)
[2018-03-06] MEDS ORDERED: *HR* Midazolam HCl 2 MG/2 ML VIAL ONE (15:01)
--- NOTE | 2018-03-06 15:53 | Event Note ---
Date of Encounter: 03/06/18 Time of Encounter: 15:51 - Cardiology Event Note Pt LHC completed. 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 No intervention. Continue asa, statin, and restart bb. Increase imdur. Out-pt f/u will be scheduled. Cardiology will sign off. Ok to restart xa relto.
--- NOTE | 2018-03-06 16:00 | Invasive Diagnostic Lab Proc ---
Name: Bettina Sanchez Date of Study: 03/06/2018 Date: 1965 Ht: 59.8in Medical Record#: [id number] Age: 52 Wt: 275.58lb Gender: Female BSA: 2.13 Order #: [id number] BMI: 54.1 Physicians Procedure Physician: Becky Butler MD Referring MD: Referring MD: Staff Name Position Time In Andry Hilliard RN Checkering Machine Adjuster 03:01 PM Nba Quan RT (R) Scrub 03:01 PM Cara Montez RN Monitor 03:01 PM Carri Wright RT (R) Scrub 03:16 PM Indications Indication Abnormal Test - Stress Procedures Performed Procedure L HRT ARTERY/VENTRICLE ANGIO Pre-Procedure Checklist Informed consent is complete signed and on chart. H&P is on chart. ID band is on and ID verified with patient. Patient NPO for procedure The procedure was described for the patient and questions were answered. Blood Pressure: 119/77 ECG is on chart. Plan of Care Patient will tolerate the procedure without complications. Adequate level of comfort will be maintained. Hemodynamics will remain stable Patient will recover from procedure without complications. Respiratory function will be maintained. Cardiac rhythm will remain stable. Patient temperature will be maintained. Patient and/or family have verbalized understanding of the procedure. Patient Education Chief Complaint/Reason for Test: Cardiac Cath Developmental Category: Adult (18-64 years) Developmentally Appropriate for Age: Yes Learning Barriers: None Education Needs: Procedure Education Method: Verbal Information Taught: Cardiac Cath Educational Evaluation: Able to repeat information Intravenous Access Time IV Size Location DC'd Fluid/Drip Rate Units RN 02:28 PM 20g 1 04/21" Patent On Arrival Rt Arm Allergies ASA,KEFLEX,CODIENE,IVP DYE,ANTIHISTAMINES,MOTRIN,N ASA,KEFLEX,CODIENE,IVP DYE,ANTIHISTAMINES,MOTRIN,N ASA,KEFLEX,CODIENE,IVP DYE,ANTIHISTAMINES,MOTRIN,N ASA,KEFLEX,CODIENE,IVP DYE,ANTIHISTAMINES,MOTRIN,N ASA,KEFLEX,CODIENE,IVP DYE,ANTIHISTAMINES,MOTRIN,N ASA,KEFLEX,CODIENE,IVP DYE,ANTIHISTAMINES,MOTRIN,N ASA,KEFLEX,CODIENE,IVP DYE,ANTIHISTAMINES,MOTRIN,N ASA,KEFLEX,CODIENE,IVP DYE,ANTIHISTAMINES,MOTRIN,N ASA,KEFLEX,CODIENE,IVP DYE,ANTIHISTAMINES,MOTRIN,N ASA,KEFLEX,CODIENE,IVP DYE,ANTIHISTAMINES,MOTRIN,N ASA,KEFLEX,CODIENE,IVP DYE,ANTIHISTAMINES,MOTRIN,N ASA,KEFLEX,CODIENE,IVP DYE,ANTIHISTAMINES,MOTRIN,N ASA,KEFLEX,CODIENE,IVP DYE,ANTIHISTAMINES,MOTRIN,N ASA,KEFLEX,CODIENE,IVP DYE,ANTIHISTAMINES,MOTRIN,N ASA,KEFLEX,CODIENE,IVP DYE,ANTIHISTAMINES,MOTRIN,N ASA,KEFLEX,CODIENE,IVP DYE,ANTIHISTAMINES,MOTRIN,N ASA,KEFLEX,CODIENE,IVP DYE,ANTIHISTAMINES,MOTRIN,N ASA,KEFLEX,CODIENE,IVP DYE,ANTIHISTAMINES,MOTRIN,N ASA,KEFLEX,CODIENE,IVP DYE,ANTIHISTAMINES,MOTRIN,N ASA,KEFLEX,CODIENE,IVP DYE,ANTIHISTAMINES,MOTRIN,N ASA,KEFLEX,CODIENE,IVP DYE,ANTIHISTAMINES,MOTRIN,N ASA,KEFLEX,CODIENE,IVP DYE,ANTIHISTAMINES,MOTRIN,N ASA,KEFLEX,CODIENE,IVP DYE,ANTIHISTAMINES,MOTRIN,N Ketorolac Lucy Contrast Media, Iodine Related Latex TAPE ASA,KEFLEX,CODIENE,IVP DYE,ANTIHISTAMINES,MOTRIN,N ASA,KEFLEX,CODIENE,IVP DYE,ANTIHISTAMINES,MOTRIN,N ASA,KEFLEX,CODIENE,IVP DYE,ANTIHISTAMINES,MOTRIN,N ASA,KEFLEX,CODIENE,IVP DYE,ANTIHISTAMINES,MOTRIN,N ASA,KEFLEX,CODIENE,IVP DYE,ANTIHISTAMINES,MOTRIN,N ASA,KEFLEX,CODIENE,IVP DYE,ANTIHISTAMINES,MOTRIN,N ASA,KEFLEX,CODIENE,IVP DYE,ANTIHISTAMINES,MOTRIN,N ASA,KEFLEX,CODIENE,IVP DYE,ANTIHISTAMINES,MOTRIN,N ASA,KEFLEX,CODIENE,IVP DYE,ANTIHISTAMINES,MOTRIN,N ASA,KEFLEX,CODIENE,IVP DYE,ANTIHISTAMINES,MOTRIN,N ASA,KEFLEX,CODIENE,IVP DYE,ANTIHISTAMINES,MOTRIN,N ASA,KEFLEX,CODIENE,IVP DYE,ANTIHISTAMINES,MOTRIN,N ASA,KEFLEX,CODIENE,IVP DYE,ANTIHISTAMINES,MOTRIN,N ASA,KEFLEX,CODIENE,IVP DYE,ANTIHISTAMINES,MOTRIN,N ASA,KEFLEX,CODIENE,IVP DYE,ANTIHISTAMINES,MOTRIN,N ASA,KEFLEX,CODIENE,IVP DYE,ANTIHISTAMINES,MOTRIN,N ASA,KEFLEX,CODIENE,IVP DYE,ANTIHISTAMINES,MOTRIN,N ASA,KEFLEX,CODIENE,IVP DYE,ANTIHISTAMINES,MOTRIN,N ASA,KEFLEX,CODIENE,IVP DYE,ANTIHISTAMINES,MOTRIN,N ASA,KEFLEX,CODIENE,IVP DYE,ANTIHISTAMINES,MOTRIN,N ASA,KEFLEX,CODIENE,IVP DYE,ANTIHISTAMINES,MOTRIN,N ASA,KEFLEX,CODIENE,IVP DYE,ANTIHISTAMINES,MOTRIN,N ASA,KEFLEX,CODIENE,IVP DYE,ANTIHISTAMINES,MOTRIN,N ASA,KEFLEX,CODIENE,IVP DYE,ANTIHISTAMINES,MOTRIN,N ASA,KEFLEX,CODIENE,IVP DYE,ANTIHISTAMINES,MOTRIN,N ASA,KEFLEX,CODIENE,IVP DYE,ANTIHISTAMINES,MOTRIN,N ASA,KEFLEX,CODIENE,IVP DYE,ANTIHISTAMINES,MOTRIN,N ASA,KEFLEX,CODIENE,IVP DYE,ANTIHISTAMINES,MOTRIN,N ASA,KEFLEX,CODIENE,IVP DYE,ANTIHISTAMINES,MOTRIN,N Iodinated Contrast- Oral and IV Dye Latex, Natural Rubber morphine Oxycodone aspirin ASA,KEFLEX,CODIENE,IVP DYE,ANTIHISTAMINES,MOTRIN,N ASA,KEFLEX,CODIENE,IVP DYE,ANTIHISTAMINES,MOTRIN,N ASA,KEFLEX,CODIENE,IVP DYE,ANTIHISTAMINES,MOTRIN,N Vital Signs Time BP (mmHg) HR (bpm) O2 Sat. RR (bpm) LOC 02:29 PM 119 / 77 69 96 % 16 5 = Fully awake and oriented or at pre-proc level 03:02 PM / % 5 = Fully awake and oriented or at pre-proc level 03:02 PM / % 4 = Oriented but drowsy 03:17 PM / % 4 = Oriented but drowsy 03:14 PM 132 / 82 75 94 % 18 03:18 PM 135 / 86 76 97 % 13 03:24 PM 130 / 78 79 96 % 16 03:29 PM 132 / 80 76 97 % 11 03:34 PM 127 / 77 75 97 % 12 03:39 PM 136 / 79 82 96 % 14 03:44 PM 133 / 87 87 94 % 14 Procedural Medications Time Medication Dose Units Method Given By 03:17 PM Oxygen 2 L/min nasal cannula Andry Hilliard RN 03:17 PM Versed 1 mg Intravenous Andry Hilliard RN 03:17 PM Fentanyl 50 mcg Intravenous Andry Hilliard RN 03:25 PM Lidocaine 2% 20 ml Subcutaneous Becky Butler MD 03:28 PM Versed 0.5 mg Intravenous Andry Hilliard RN 03:28 PM Fentanyl 25 mcg Intravenous Andry Hilliard RN 03:30 PM Lidocaine 2% 10 ml Subcutaneous Becky Butler MD 03:30 PM Versed 0.5 mg Intravenous Andry Hilliard RN 03:31 PM Fentanyl 25 mcg Intravenous Andry Hilliard RN Naina Score Preprocedure Postprocedure Activity 2- Moves 4 extremities sustained head lift Activity 2- Moves 4 extremities sustained head lift Circulation 2- SBP +/= 20 points of pre-anesthetic level Circulation 2- SBP +/= 20 points of pre-anesthetic level Consciousness 2- Awake and alert oriented x 3 Consciousness 2- Awake and alert oriented x 3 O2 Saturation 2- Able to maintain O2 satruation of 92% on room air O2 Saturation 2- Able to maintain O2 satruation of 92% on room air Respiratory 2- Able to deep breathe and cough well Respiratory 2- Able to deep breathe and cough well Total Score 10 Total Score 10 Contrast Agent: Isovue Diagnostic Contrast: 58 ml Total Contrast: 58 ml Fluoro Dose: 5832 mGy Procedure Log Time Note Enter By 02:33 PM Case Start 02:33 PM CathStat 02:33 PM [ Start or Stop Vital ] 03:01 PM Pt arrived to labor conciliator 2 at 15:01 cedwards 03:01 PM Andry Hilliard RN Position: Checkering Machine Adjuster Time in: 15: cedwards 03:01 PM Nba Quan RT (R) Position: Scrub Time in: 15: cedwards 03:01 PM Cara Montez RN Position: Monitor Time in: 15: cedwards 03:01 PM Patient charges- Angio tray pack, Navilyst 3mm J, Pulse Oximetry and ACIST tubing and transducer cedwards 03:02 PM Time: 15:02LOC: 5 = Fully awake and oriented or at pre-proc level cedwards 03:02 PM Time: 15:02 Patient comfortable and pain free: Yes cedwards 03:08 PM Physician arrived 15:08 kmavis 03:09 PM Meet and greet completed kmavis 03:09 PM Sign in performed according to hospital policy. Informed consent was obtained. kmavis 03:09 PM Procedure start 15:09 kmavis 03:13 PM Vitals capture started with the following parameters, Patient=Adult, Interval=5 min, Initial Svornxzx=108 mmHg, Deflation Rate=5 mmHg, Cuff placed on Right Arm 03:14 PM HR=75 bpm, IKED=639/82 mmhg, SpO2=94 %, Resp=18 B/min 03:16 PM Recorded ECG: HR=73 Condition=Condition 1 03:16 PM Hair removed from procedure site in procedure lab using clippers. Bilateral groin prepped with Chloraprep by Nba Quan RT (R), then patient was draped. Skin intact. kmavis 03:16 PM Carri Wright RT (R) Position: Scrub Time in: 15:16 kmavis 03:17 PM Time: 15:17 Oxygen on at 2 L/min per nasal cannula by Hilliard, Andry RN kmavis 03:17 PM Time: 15:17 Versed 1 mg Intravenous Given by Andry Hilliard RN 03:17 PM Time: 15:17 Fentanyl 50 mcg Intravenous Given by Andry Hilliard RN 03:17 PM Time: 15:02LOC: 4 = Oriented but drowsy shaan 03:17 PM Time: 15:02 Patient comfortable and pain free: Yes kmavis 03:18 PM HR=76 bpm, FTOO=003/86 mmhg, SpO2=97.0 %, Resp=13 B/min 03:23 PM Pressure channel 1 zeroed. 03:23 PM Pressure channel 1 zeroed. 03:24 PM HR=79 bpm, FEAB=864/78 mmhg, SpO2=96.0 %, Resp=16 B/min, EtCO2=35 mmHg, Comment=nsr 03:24 PM Time out was performed according to hospital policy. Conscious sedation and anesthesia was achieved (see medication log with in this report above) avis 03:25 PM Time: 15:25 20 ml Lidocaine 2% to right groin Subcutaneous Given by MD magaly Velez 03:28 PM Time: 15:28 Versed 0.5 mg Intravenous Given by Andry Hilliard RN 03:28 PM Time: 15:28 Fentanyl 25 mcg Intravenous Given by Andry Hilliard RN 03:29 PM HR=76 bpm, PWEG=457/80 mmhg, SpO2=97.0 %, Resp=11 B/min, EtCO2=35 mmHg, Comment=nsr 03:30 PM Time: 15:30 10 ml Lidocaine 2% to right groin Subcutaneous Given by MD magaly Velez 03:31 PM Time: 15:30 Versed 0.5 mg Intravenous Given by Andry Hilliard RN 03:31 PM Time: 15:31 Fentanyl 25 mcg Intravenous Given by Andry Hilliard RN 03:32 PM Time: 15:17LOC: 4 = Oriented but drowsy shaan 03:32 PM Time: 15:17 Patient comfortable and pain free: Yes kmavis 03:34 PM HR=75 bpm, BGLF=389/77 mmhg, SpO2=97.0 %, Resp=12 B/min, EtCO2=40 mmHg, Comment=nsr 03:35 PM Micro-Introducer Kit utilized for sheath placement kmavis 03:35 PM Access obtained by percutaneous puncture. 6Fr 10cm Terumo Helen sheath placed in right Femoral artery. [id number] kmavis 03:36 PM injected 3ml of contrast to right groin kmavis 03:36 PM 5Fr FR 4 catheter inserted over the wire DN kmavis 03:36 PM 0.035 145cm Navilyst 3mmJ wire [id number] kmavis 03:37 PM RCA angiography performed in multiple views. kmavis 03:37 PM Recorded Pressure: Ao, HR=75, Condition=Condition 1 (Aorta) Ao 114/90/102 03:37 PM Catheter removed kmavis 03:37 PM 5Fr FL 4 catheter inserted over the wire DN kmavis 03:37 PM LCA angiography performed in multiple views. kmavis 03:38 PM Recorded Pressure: Ao, HR=84, Condition=Condition 1 (Aorta) Ao 124/89/106 03:39 PM HR=82 bpm, PZIU=004/79 mmhg, SpO2=96.0 %, Resp=14 B/min, EtCO2=37 mmHg, Comment=nsr 03:41 PM Catheter removed kmavis 03:41 PM 5Fr Pigtail catheter inserted over the wire DN kmavis 03:41 PM Catheter crossed the aortic valve and was selectively placed in the left ventricle. Pressures recorded on pullback for left heart catheterization. kmavis 03:43 PM Recorded Pressure: LV, HR=86, Condition=Condition 1 (Left Ventricle) LV 152/11/32 03:43 PM Recorded Pressure: LV, Ao, HR=84, Condition=Condition 1 (Left Ventricle) LV 154/15/32, (Aorta) Ao 145/42/92 03:43 PM Catheter removed kmavis 03:44 PM HR=87 bpm, TSFW=612/87 mmhg, SpO2=94.0 %, Resp=14 B/min, Comment=nsr 03:44 PM Procedure completed at 15:44 03/06/2018 kmavis 03:44 PM Did you address OSORIO flow and Dominance? Yes kmavis 03:44 PM Sign out completed: Radiation Dose 524 mGy, 5832 cGy/cm2 Fluoro Time: 2 Isovue 370 - 200ml contrast 58 ml given by Becky Butler MD. Complications: None. The patient was discharged out of the labeling strategist in stable condition. Cardiac Rehab Consult needed: NoConfirmed administered medications: Yes kmavis 03:44 PM Isovue 370 - 200ml,1 Bottle(s) used. kmavis 03:45 PM Arterial sheath pulled, Mynx closure device used and was Successful [id number] S/N. kmavis 03:45 PM Estimated Blood Loss: minimal kmavis 03:45 PM Post ECG NSR kmavis 03:45 PM Post Blood Pressure 133/87 kmavis 03:45 PM Information taught Cardiac Cath and Mynx kmavis 03:45 PM Education needs Procedure, Plan of Care, and Disease Process kmavis 03:45 PM Learning barriers :None kmavis 03:45 PM Education Methods Verbal kmavis 03:46 PM Education evaluation Able to repeat information kmavis 03:46 PM Site status No bleeding/hematoma - Rt Groin as reported by Carri Wright RT (R) at 15:46 kmavis 03:46 PM Opsite applied kmavis 03:46 PM Plavix, Effient or Brilinta given No kmavis 03:46 PM Delay to floor No kmavis 03:46 PM Family placed in consult room. kmavis 03:46 PM Complications: None kmavis 03:49 PM Coronary Dominance: right kmavis 03:49 PM Lesion found in Mid LAD. Pre Stenosis: 40 Pre OSORIO Flow: kmavis 03:50 PM Mid/Distal Left Anterior Descending Coronary Artery and diagonal branches with 40% stenosis. If graft is supplying this area, 0 % stenosis kmavis 03:52 PM Report given to Denzel JIMENEZ Pt taken to ICU Room #. 15:52 kmavis 03:53 PM Patient out of room: 15:52 kmavis Complications Complication None None Hemodynamics Pressures Site Systolic/A Wave Diastolic/V Wave Mean AO 114 90 102 AO 124 89 106 LV 152 11 32 LV 154 15 32 AO 145 42 92 Post Procedure Information Blood Pressure: 133/87 mmHg Rhythm: NSR Post procedural instructions were given Closure Device Time Device Success/Fail 03/06/2018 3:48:00 PM MynxGrip [id number] Site Checks Time Location Status Staff Sheath In? Note 03:46 PM Rt Groin No bleeding/hematoma Carri Wright RT (R) Pulses Time Site Pre-Procedure Post-Procedure Note 03/06/2018 2:29:00 PM Bilateral DP & PT 2+ 03/06/2018 2:29:00 PM Bilateral radial 2+ Updated by Andry Hilliard RN on 03/06/2018 3:53:31 PM electronically signed on 03/06/2018 3:54:46 PM with status of Final
--- NOTE | 2018-03-06 17:46 | Electrocardiograph Report ---
[address] [place], [place] [address] Test Date: 2018-03-03 Pat Name: Bettina Sanchez Department: 113 Room: [facility] Gender: F Forklift Material Handler: : 1965 Requested By: Dorys áVsquez Order Number: [id number] Reading MD: Lorelei Gates Measurements Intervals Stuart Rate: 76 P: 39 [place]: 155 QRS: -1 QRSD: 100 T: 3 QT: 362 QTc: 393 Interpretive Statements SINUS RHYTHM LOW QRS VOLTAGE IN PRECORDIAL LEADS Electronically Signed On 03-06-2018 17:44:17 EST by Lorelei Gates
--- NOTE | 2018-03-06 18:03 | Internal Med Progress Note ---
Hospitalist Progress Note - Encounter Date of Encounter: 03/06/18 Time of Encounter: 18:01 - Subjective Interval History: Pt denies chest pain or SOB. She denies fever, chills, N/V or diarrhea. Denies abdominal pain. - Exam Vitals: Temp Pulse Resp BP Pulse Ox 98.0 F 71 14 107/74 95 03/06/18 15:58 03/06/18 17:00 03/06/18 17:00 03/06/18 17:00 03/06/18 17:00 Exam: Physical exam: Gen: Alert, awake, Oriented to time,place and person, morbidly obese HEENT: normocephalic, eye PEERLA, EOMI, Nose without rhinorrhea, throat clear and oral mucosa pink and moist. Chest: Diminished breath sounds B/L, No wheezing, No crackles, No rales Heart: S1S2+ RRR No murmurs Abd: Soft, NT, BS +, No organomegaly Ext: No edema, pulses are palpable, No calf tenderness Neuro : Benign findings Skin: No rash. - Assessment and Plan (1) Chest pain Current Visit: Yes Status: Acute Assessment and Plan: Negative troponin 3 reviewed EKG did not show any acute ischemic changes, no ST T changes continue Statin she is allergic to aspirin and still complaining about intermittent chest pain Her nuclear stress test came back as slightly abnormal - Mild apical ischemia patient is allergic to contrast, does get hives and asthma exacerbation started her on low dose BB Metoprolol 12.5mg BID y/d, she did toelrate well, Imdur increased to 60 mg daily Pt transferred to ICU for desensitization. Allergies specialist on board for ASA desensitization on Tuesday. Pt has [facility] planned Tuesday afternoon. Cardiology following. Possible DC in am depending on cath results (2) HTN (hypertension) Current Visit: No Status: Chronic Assessment and Plan: Metoprolol 25 mg BID and Imdur 60 mg PO QD Well controlled with current regimen (3) Obesity Current Visit: No Status: Chronic Assessment and Plan: Will benefit from weight loss. Diet and exercise education given. (4) CAD (coronary artery disease) Current Visit: Yes Status: Acute Assessment and Plan: Reports history of 1 stent resumed home medications, medication adjustment as above. (5) Bipolar 2 disorder Current Visit: No Status: Chronic Assessment and Plan: Resumed all home medications (6) Asthma with acute exacerbation Current Visit: Yes Status: Resolved Assessment and Plan: She might have mild exacerbation which might contributing to her current CP too Seen by Pulm and appreciate recommendations for asthma exac started on Prednisone 40m Daily x 5 days Cont Symbicort Duoneb (7) History of pulmonary embolism Current Visit: Yes Status: Acute Assessment and Plan: Cont Xarelto for now DVT Prophylaxis: Xarelto - Summary of Assessment and Plan Summary of Assessment and Plan: History of present illness: Dr. Vásquez Ms. Sanchez is a 52 year old obese female with a history of hypertension and coronary artery disease with chronic lumbago who presents today on transfer from [facility] after being taken there for chest pain that started after undergoing injections to her lumbar spine for pain. She cannot specify what exactly was injected however she says it started when she was in recovery and felt it across her precordium with radiation to her left axilla. She denies accompanying shortness of breath or lightheadedness. She reports short-lived relief with sublingual nitroglycerin. While at [facility] it is reported that her EKG was non- ischemic with a negative initial troponin at 1645hrs. I asked for a D-dimer to be done which was elevated but a subsequent CTA was negative for PE. She presents here stating that she now feels the pain below her ribcage bilaterally with a horizontal type of radiation. She is comfortable however and wants to eat some food. Family history remarkable for HTN in father. PMHx as above. Social history remarkable for active tobacco use. - Time Spent with Patient Total time spent is greater than 50% in coordination of care (as documented) at patient's floor/unit and/or counseling patient: less than 15 minutes Plan of Care Discussed with: patient Internal Medicine: Result - Labs CBC & Chem 7: 03/04/18 04:50 03/04/18 04:50 Consult Discharge Plan - Plan Instructions: Nitroglycerin, Rapid Release (By mouth), Chest Pain (DC) Additional Instructions: [facility] will call you with an appointment time and day for your follow up, heart cath, and asprin desensitization. Please call their office with the number provided if you do not hear from them by Wednesday 03/07. Follow-up appointments: If there is not an appointment listed below, please call your physician and schedule a follow-up appointment. If you have congestive heart failure and your symptoms return, make an appointment with your physician. Medication List: Carry an up to date list of medications you are taking at all time. We have given you an updated medication list including any new medications that you have been prescribed. Please provide that list to your primary provider Symptoms: If your condition changes or you experience any of the following symptoms, notify your physician immediately: Unusual or worsening pain, fever, persistent nausea and vomiting, bleeding, increase in swelling (especially in your legs), sudden weight gain, extreme dizziness, chest pain, increased drainage or redness from a wound or incision. Go to the emergency department if you experience a problem with breathing. Weights: If you have a history of swelling or shortness of breath, weigh yourself daily and notify your physician if you have a weight gain of two or more pounds in one day or 5 or more pounds in a week. If you experience any of the warning signs for stroke: Sudden numbness or weakness of the face, arm or leg; especially on one side of the body, sudden confusion, trouble speaking or understanding, sudden trouble seeing in one or both eyes, sudden trouble walking, dizziness, loss of balance or coordination, sudden sever headache with no cause; Call 911 or go to the emergency room. Stroke is a medical emergency. Some risk factors for stroke: Age, cigarette smoking, diabetes, excessive alcohol consumption, family history, high blood pressure, overweight, physical inactivity, prior stroke, heart att ack, diagnosis of carotid artery stenosis or other artery disease. If you smoke, STOP: Smoking or tobacco use significantly increases your risk of heart and lung disease. Your chance of disease greatly increases if you continue to smoke. For more information, call the [place] tobacco quit line for smoking cessation 6-145-XKOO-NOW ( ) Referrals: [facility] [Provider Group] Tiffanie Wiseman CNP [Primary Care Provider] - 03/08/18 12:30 pm Prescriptions: Nitroglycerin 0.4 mg SL Q5MIN PRN #10 tab.subl PRN Reason: Chest Pain Isosorbide MONOnitrate (24 HR) [Imdur] 60 mg PO DAILY #30 tab.er.24h Perphenazine [Trilafon] 8 mg PO TID #20 tablet (1) Chest pain Qualifiers: Ischemic chest pain type: unspecified angina pectoris type Qualified Code(s): I25.9 - Chronic ischemic heart disease, unspecified (2) HTN (hypertension) Qualifiers: Hypertension type: essential hypertension Qualified Code(s): I10 - Essential (primary) hypertension (3) Obesity Qualifiers: Obesity type: due to excess calories Obesity classification: adult class 3 (BMI >= 40) Serious obesity comorbidity presence: with serious comorbidity Body mass index: BMI 50.0-59.9 Qualified Code(s): E66.01 - Morbid (severe) obesity due to excess calories; Z68.43 - Body mass index (BMI) 50-59.9, adult (4) CAD (coronary artery disease) Qualifiers: Coronary Disease-Associated Artery/Lesion type: [place] artery [place] vs. transplanted heart: [place] heart Associated angina: with stable angina Qualified Code(s): I25.118 - Atherosclerotic heart disease of [place] coronary artery with other forms of angina pectoris (6) Asthma with acute exacerbation Qualifiers: Asthma severity: unspecified severity Asthma persistence: unspecified Qualified Code(s): J45.901 - Unspecified asthma with (acute) exacerbation
[2018-03-06] MEDS: Topiramate 100 MG TABLET PO SCH (20:08)
[2018-03-06] MEDS ORDERED: traZODone 50 MG TABLET PO SCH (21:00)
[2018-03-07] MEDS: Nitroglycerin 0.4 MG TAB.SUBL SL PRN (00:33)
[2018-03-07] MEDS: traMADol 50 MG TABLET PO PRN ×2 (01:49→07:53)
[2018-03-07] MEDS: Budesonide/Formoterol 160/4.5 1 PUFF INH IH SCH (07:35)
[2018-03-07] MEDS: Gabapentin 400 MG CAPSULE PO SCH (07:51)
[2018-03-07] MEDS: Perphenazine 8 MG TABLET PO SCH (07:53)
[2018-03-07] MEDS: Famotidine 20 MG TABLET PO SCH (07:54)
[2018-03-07] MEDS: Topiramate 25 MG TABLET PO SCH (07:54)
[2018-03-07] MEDS: Ondansetron 4 MG/2 ML VIAL IVP PRN (07:56)
[2018-03-07] MEDS: Isosorbide MONOnitrate (24 HR) 30 MG TAB.ER.24H PO SCH ×2 (07:56→12:53)
[2018-03-07] MEDS: Fluticasone Propionate Nasal 50 MCG/SPRAY BOTTLE NS SCH (08:09)
[2018-03-07] MEDS ORDERED: Loratadine 10 MG TABLET PO SCH (09:00)
--- NOTE | 2018-03-07 11:46 | Discharge Summary ---
- NOTES TO OUTPATIENT PROVIDER Notes to Outpatient Provider: 1. Pt started ASA 81mg po daily after ASA desensitization. LHC shows 40% stenosis, no stent placed. Orders not resulted at time of discharge: Pending orders 02/28/18 12:20 NM daniel perf SPECT multi [NM] Routine Date of Encounter: 03/07/18 Time of Encounter: 09:00 - Discharge Diagnosis (1) Chest pain Priority: Primary Status: Acute Qualifiers: Ischemic chest pain type: unspecified angina pectoris type Qualified Code(s): I25.9 - Chronic ischemic heart disease, unspecified (2) HTN (hypertension) Priority: Secondary Status: Chronic Qualifiers: Hypertension type: essential hypertension Qualified Code(s): I10 - Essential (primary) hypertension (3) Obesity Priority: Secondary Status: Chronic Qualifiers: Obesity type: due to excess calories Obesity classification: adult class 3 (BMI >= 40) Serious obesity comorbidity presence: with serious comorbidity Body mass index: BMI 50.0-59.9 Qualified Code(s): E66.01 - Morbid (severe) obesity due to excess calories; Z68.43 - Body mass index (BMI) 50-59.9, adult (4) CAD (coronary artery disease) Priority: Primary Status: Acute Qualifiers: Coronary Disease-Associated Artery/Lesion type: [place] artery [place] vs. transplanted heart: [place] heart Associated angina: with stable angina Qualified Code(s): I25.118 - Atherosclerotic heart disease of [place] coronary artery with other forms of angina pectoris (5) Bipolar 2 disorder Priority: Secondary Status: Chronic (6) Asthma with acute exacerbation Priority: Primary Status: Resolved Qualifiers: Asthma severity: unspecified severity Asthma persistence: unspecified Qualified Code(s): J45.901 - Unspecified asthma with (acute) exacerbation (7) History of pulmonary embolism Priority: Secondary Status: Acute Hospital course: Ms. Sanchez is a 52 year old female present to ER for chest pain. Patient has CTA in [place] and shows no PE. Patient has history of CAD S/P stent, ACS was considered. Patient was placed on cardiac monitoring and 3 sets of troponin was checked. Troponin was negative. However, patient has positive stress test. Cardiology consult was called and since patient is allergic to aspirin, aspirin desensitization was done by Allergy/immunology consult. LHC shows moderate stenosis, no intervention. Cardiology sign off, recommend continue aspirin, beta crow, atorvastatin, nitroglycerin sublingual as needed, and imdur (dose increased), continue follow-up with cardiology as outpatient. I have seen and examined this patient today. Denies chest pain. Vitals are stable. Will DC patient home with new medications. Continue follow-up with cardiology as outpatient. - Time Spent with Patient Total time spent providing and/or coordinating discharge services: 40 minutes Greater than 30 minutes - Discharge Medications Prescriptions: Nitroglycerin 0.4 mg SL Q5MIN PRN #10 tab.subl PRN Reason: Chest Pain Aspirin Enteric Coated [Aspirin EC] 81 mg PO DAILY 30 Days #30 tablet.dr Isosorbide MONOnitrate (24 HR) [Imdur] 60 mg PO DAILY #30 tab.er.24h Metoprolol [Lopressor] 25 mg PO BID 30 Days #60 tablet Perphenazine [Trilafon] 8 mg PO TID #20 tablet Home Medications: Atorvastatin [Lipitor] 40 mg PO HS 02/28/18 [History] Benztropine [Cogentin] 0.5 mg PO DAILY 02/28/18 [History] Cyclobenzaprine HCl 5 mg PO BID 02/28/18 [History] DULoxetine [Cymbalta] 30 mg PO DAILY 02/28/18 [History] Fluticasone Propionate Nasal [Flonase] 1 puff IH BID 02/28/18 [History] Fluticasone/Vilanterol [Breo Ellipta 100-25 Mcg INH] 1 each IH DAILY 02/28/18 [History] Gabapentin [Neurontin] 800 mg PO TID 02/28/18 [History] Ipratropium/Albuterol Neb [Duoneb] 3 ml IH TID PRN 02/28/18 [History] Levocetirizine Dihydrochloride [Allergy Relief] 5 mg PO DAILY 02/28/18 [History] Lisinopril [Zestril] 5 mg PO DAILY 02/28/18 [History] Lurasidone [Latuda] 40 mg PO DAILY 02/28/18 [History] Meclizine HCl [Verticalm] 25 mg PO DAILY 02/28/18 [History] Montelukast [Singulair] 10 mg PO DAILY 02/28/18 [History] Ranitidine HCl [Acid Railway Engineer] 150 mg PO DAILY 02/28/18 [History] Rivaroxaban [Xarelto] 20 mg PO DAILY 02/28/18 [History] Topiramate 50 mg PO DAILY 02/28/18 [History] Topiramate 100 mg PO HS 02/28/18 [History] Trazodone HCl 200 mg PO HS 02/28/18 [History] Isosorbide MONOnitrate (24 HR) [Imdur] 60 mg PO DAILY #30 tab.er.24h 03/05/18 [Rx] Nitroglycerin 0.4 mg SL Q5MIN PRN #10 tab.subl 03/05/18 [Rx] Patient Taking Own Medication 0 each PO DAILY each 03/05/18 [Rx] Perphenazine [Trilafon] 8 mg PO TID #20 tablet 03/05/18 [Rx] Aspirin Enteric Coated [Aspirin EC] 81 mg PO DAILY 30 Days #30 tablet.dr 03/07/18 [Rx] Metoprolol [Lopressor] 25 mg PO BID 30 Days #60 tablet 03/07/18 [Rx] Topiramate [Topamax] 50 mg PO DAILY tablet 03/07/18 [Rx] traZODone [TraZODone] 150 mg PO HS tablet 03/07/18 [Rx] Allergies/Adverse Reactions: Allergy/AdvReac Type Severity Reaction Status Date / Time acetaminophen [From Percocet] Allergy Hives Verified 02/28/18 02:02 aspirin Allergy Difficulty Verified 02/28/18 02:02 Breathing cephalexin Allergy Difficulty Verified 02/28/18 02:02 Breathing ibuprofen [From Motrin] Allergy Difficulty Verified 02/28/18 02:02 Breathing Iodinated Contrast- Oral and Allergy Difficulty Verified 02/28/18 02:02 IV Dye Breathing Latex, Natural Rubber Allergy Difficulty Verified 02/28/18 02:02 Breathing milk Allergy Wheezing Verified 02/28/18 02:02 morphine Allergy Difficulty Verified 02/28/18 02:02 Breathing Oxycodone [From Percocet] Allergy Hives Verified 02/28/18 02:02 shellfish derived Allergy Difficulty Verified 02/28/18 02:02 Breathing Date of admission: 02/28/18 00:46 Primary care physician: Tiffanie Wiseman CNP Consults: 03/02/18 09:46 Consult to Cardiology [CONS] Routine Comment: Consulting Provider: [facility] Reason for Consult: abnormal stress test Time Notified: 09:46 Call Completed: Yes 03/02/18 14:35 Consult to Allergy/Immunology [CONS] Routine Consulting Provider: [facility] Reason for Consult: Aspirin desensitization for heart disease patient Call Completed: Yes 03/02/18 16:43 Consult to Pulmonology [CONS] Routine Consulting Provider: [facility] Reason for Consult: asthma Time Notified: 17:00 Call Completed: Yes Discharging clinician: Cory Orellana Anticipated date of discharge: 03/07/18 - Constitutional Vitals: Temp Pulse Resp BP Pulse Ox 97.8 F 58 15 116/70 94 03/07/18 08:00 03/07/18 11:00 03/07/18 11:00 03/07/18 11:00 03/07/18 11:00 General appearance: Present: cooperative, A&O X 3, morbidly obese, answers questions appropriately Exam: in NAD - Head Head exam: Present: atraumatic, normocephalic - Eye Eye exam: Present: PERRL, conjuntiva pink, sclera anicteric Pupils: Present: PERRL - Neck Neck exam general surgery: Present: supple, trachea midline. Absent: lymphadenopathy - Respiratory Respiratory exam: Present: CTAB. Absent: accessory muscle use, rales, rhonchi, wheezes - Cardiovascular Cardiovascular exam: Present: RRR, +S1, +S2. Absent: diastolic murmur, gallop, rubs, systolic murmur - GI/Abdominal GI/Abdominal exam: Present: normal bowel sounds, soft, no peritoneal signs. Absent: distended, tenderness - Extremities Exam Extremities exam: Present: warm, radial pulses palpable and symmetrical. Absent: calf tenderness, cyanotic, pedal edema - Neurological Exam Neurological exam: Present: CN II-XII intact, oriented X3, no focal deficits. Absent: pronater drift, facial droop, speech deficit - Skin Skin exam: Present: dry, intact - Patient Status Disposition: Home, Self-Care Condition: Fair - Discharge Instructions Instructions: Nitroglycerin, Rapid Release (By mouth), Chest Pain (DC) Follow Up With: [facility] [Provider Group] Tiffanie Wiseman, ARCHITECTURAL REPRESENTATIVE [Primary Care Provider] - 03/08/18 12:30 pm Additional Instructions: [facility] will call you with an appointment time and day for your follow up, heart cath, and asprin desensitization. Please call their office with the number provided if you do not hear from them by Wednesday 03/07. Follow-up appointments: If there is not an appointment listed below, please call your physician and schedule a follow-up appointment. If you have congestive heart failure and your symptoms return, make an appointment with your physician. Medication List: Carry an up to date list of medications you are taking at all time. We have given you an updated medication list including any new medications that you have been prescribed. Please provide that list to your primary provider Symptoms: If your condition changes or you experience any of the following symptoms, notify your physician immediately: Unusual or worsening pain, fever, persistent nausea and vomiting, bleeding, increase in swelling (especially in your legs), sudden weight gain, extreme dizziness, chest pain, increased drainage or redness from a wound or incision. Go to the emergency department if you experience a problem with breathing. Weights: If you have a history of swelling or shortness of breath, weigh yourself daily and notify your physician if you have a weight gain of two or more pounds in one day or 5 or more pounds in a week. If you experience any of the warning signs for stroke: Sudden numbness or weakness of the face, arm or leg; especially on one side of the body, sudden confusion, trouble speaking or understanding, sudden trouble seeing in one or both eyes, sudden trouble walking, dizziness, loss of balance or coordination, sudden sever headache with no cause; Call 911 or go to the emergency room. Stroke is a medical emergency. Some risk factors for stroke: Age, cigarette smoking, diabetes, excessive alcohol consumption, family history, high blood pressure, overweight, physical inactivity, prior stroke, heart attack, diagnosis of carotid artery stenosis or other artery disease. If you smoke, STOP: Smoking or tobacco use significantly increases your risk of heart and lung disease. Your chance of disease greatly increases if you continue to smoke. For more information, call the [place] tobacco quit line for smoking cessation 4-761-IDKV-NOW ( ) - Diet and Activity Activity: increase activity as tolerated Diet: advance to your usual diet, low fat, low cholesterol, low salt diet
[2018-03-07] MEDS ORDERED: Aspirin Enteric Coated 81 MG Tablet PO SCH (12:15)
[2018-03-07 12:30] VITALS: BP 115/74
== END 2018-03-07 13:50 | disposition home or self-care (01) | DRG 286 ==
LOC: 3BNU → OBSVTOIN 00:46 → SUATTDRO 00:46 → ICNU 03-05 20:49
PROVIDERS: ADMIT Internal Medicine; ATTEND Internal Medicine

== ENCOUNTER 2019-04-23 08:46 | Inpatient (IN) ==
[2019-04-23] MEDS ORDERED: Albuterol 2.5 MG/3 ML NEBULIZER IH PRN (10:16)
[2019-04-23] MEDS ORDERED: Clindamycin 900 MG/50 ML 900 MG/50 ML IV.SOLN IVPB ONE (10:16)
[2019-04-23] MEDS ORDERED: Ringers Solution, Lactated 1,000 ML IVC SCH ×2 (10:30→17:12)
[2019-04-23] MEDS ORDERED: Famotidine 20 MG/2 ML VIAL IVP ONE (10:58)
[2019-04-23] MEDS ORDERED: Acetaminophen IV 1,000 MG/100 ML INFUS..BTL IVPB ONE (10:59)
[2019-04-23] MEDS ORDERED: Pregabalin 75 MG CAPSULE PO ONE (10:59)
[2019-04-23] MEDS ORDERED: *HR* HYDROmorphone 2 MG TABLET PO PRN (11:01)
[2019-04-23] MEDS ORDERED: *HR* Promethazine 25 MG/ML VIAL IVP PRN (11:01)
[2019-04-23] MEDS ORDERED: *HR* HYDROmorphone (PF) 1 MG/ML SYRINGE IVP PRN (11:01)
[2019-04-23] MEDS ORDERED: *HR* Labetalol 20 MG/4 ML SYRINGE IVP PRN (11:01)
[2019-04-23] MEDS ORDERED: *HR* Propofol 200 MG/20 ML VIAL IVP ONE (11:03)
[2019-04-23] MEDS ORDERED: *HR* Midazolam HCl 2 MG/2 ML VIAL ONE (11:03)
[2019-04-23] MEDS ORDERED: *HR* FentaNYL (PF) 100 MCG/2 ML VIAL ONE (11:03)
[2019-04-23] MEDS ORDERED: Lidocaine -MPF 2% 2 ML VIAL ONE (11:06)
[2019-04-23] MEDS ORDERED: *HR* Succinylcholine 200 MG/10 ML VIAL IVP ONE (11:06)
[2019-04-23] MEDS ORDERED: Lidocaine HCL 4 ML Topical Solution (Laryng-O-Jet Kit Sterile Pak) TP ONE (11:06)
[2019-04-23] MEDS ORDERED: Ondansetron 4 MG/2 ML VIAL ONE (11:06)
[2019-04-23] MEDS ORDERED: Dexamethasone 4 MG/ML VIAL ONE (11:06)
[2019-04-23] MEDS ORDERED: *HR* Phenylephrine 10 MG/ML VIAL ONE (11:20)
[2019-04-23] MEDS ORDERED: Ropivacaine/PF 0.5% 30 ML VIAL ONE (12:59)
[2019-04-23] MEDS ORDERED: ROPIVACAINE/PF/NS 0.25% 1 EACH SYRINGE INTRAART ONE (13:00)
[2019-04-23] MEDS ORDERED: Ethanol\\Acetic Acid\\Na Ace\\Ben 1,000 ML IRRIG.SOLN IR ONE (13:47)
[2019-04-23] MEDS ORDERED: EPHEDrine 50 MG/ML VIAL ONE (14:23)
[2019-04-23] MEDS ORDERED: Lidocaine -MPF 4% 5 ML AMPUL ONE (14:48)
[2019-04-23 16:46] LABS: Hematocrit 34.6 % (35.3-44.9); Hemoglobin 10.2 g/dL (11.5-15.4)
[2019-04-23] MEDS ORDERED: MOM Conc 10 ML UD.LIQ PO PRN (17:12)
[2019-04-23] MEDS ORDERED: *HR* OxyCODONE/APAP 5/325 TABLET PO PRN (17:12)
[2019-04-23] MEDS ORDERED: Sennosides 8.6 MG TABLET PO PRN (17:12)
[2019-04-23] MEDS ORDERED: Naloxone 0.4 MG/ML INJ IVP PRN (17:12)
[2019-04-23] MEDS ORDERED: Nitroglycerin 0.4 MG TAB.SUBL SL PRN (17:12)
[2019-04-23] MEDS ORDERED: Temazepam 15 MG CAPSULE PO PRN (17:12)
[2019-04-23] MEDS ORDERED: *HR* Enoxaparin 30 MG/0.3 ML SYRINGE SQ SCH ×2 (18:00)
[2019-04-23] MEDS: Metoprolol XL (24 HR) Succ 25 MG TAB.ER.24H PO SCH (18:08)
[2019-04-23] MEDS: Clindamycin 900 MG/50 ML 900 MG/50 ML IV.SOLN IVPB SCH (18:27)
[2019-04-23] MEDS: *HR* OxyCODONE Immed Rel 5 MG TABLET PO PRN (21:55)
[2019-04-23] MEDS: Pregabalin 75 MG CAPSULE PO SCH (21:55)
[2019-04-23] MEDS: traZODone 50 MG TABLET PO SCH (21:55)
[2019-04-23] MEDS: Fluticasone Propionate Nasal 50 MCG/SPRAY BOTTLE NS SCH (21:56)
[2019-04-23] MEDS: Topiramate 100 MG TABLET PO SCH (21:56)
[2019-04-24] MEDS: Clindamycin 900 MG/50 ML 900 MG/50 ML IV.SOLN IVPB SCH (00:11)
[2019-04-24] MEDS: *HR* OxyCODONE Immed Rel 5 MG TABLET PO PRN ×4 (06:23→23:09)
[2019-04-24 07:01] LABS: Hematocrit 31.6 % (35.3-44.9); Hemoglobin 9.9 g/dL (11.5-15.4)
[2019-04-24 07:14] LABS: BUN/Creatinine Ratio 17 (6-26); Blood Urea Nitrogen 15 mg/dL (6-20); Calcium 8.4 mg/dL (8.6-10.3); Carbon Dioxide 21 mEq/L (23-29); Chloride 106 mEq/L (98-107); Glucose 208 mg/dL (70-105); Osmolality,Calculated 291 (280-300); Potassium 4.2 mEq/L (3.5-5.1); Sodium 137 mEq/L (136-145); eGFR For African Americans > 60 (> 60); eGFR For Non-African Americans > 60 (> 60)
[2019-04-24] MEDS: Ondansetron 4 MG/2 ML VIAL IVP PRN ×2 (08:46→23:09)
[2019-04-24] MEDS: *HR* Rivaroxaban 10 MG TABLET PO SCH (08:53)
[2019-04-24] MEDS: Aspirin Enteric Coated 81 MG Tablet PO SCH (08:53)
[2019-04-24] MEDS: Famotidine 20 MG TABLET PO SCH (08:53)
[2019-04-24] MEDS: *HR* SitaGLIPtin 25 MG TABLET PO SCH (08:56)
[2019-04-24] MEDS: BuPROPion XL (24 HR) 150 MG TABLET PO SCH (08:56)
[2019-04-24] MEDS: Topiramate 25 MG TABLET PO SCH (08:57)
[2019-04-24] MEDS: Isosorbide MONOnitrate (24 HR) 30 MG TAB.ER.24H PO SCH (08:57)
[2019-04-24] MEDS: Fluticasone Propionate Nasal 50 MCG/SPRAY BOTTLE NS SCH ×2 (08:58→21:30)
[2019-04-24] MEDS ORDERED: (Fluticasone/Vilanterol [Breo Ellipta 100-25 Mcg Inh]) IH SCH (09:00)
[2019-04-24] MEDS ORDERED: [UNRECOGNIZED DRUG - REMARK] PO SCH (09:00)
[2019-04-24] MEDS: Topiramate 100 MG TABLET PO SCH (16:57)
[2019-04-24] MEDS: Metoprolol XL (24 HR) Succ 25 MG TAB.ER.24H PO SCH (16:58)
[2019-04-24] MEDS ORDERED: Ketorolac 30 MG/ML VIAL IVP PRN (19:40)
[2019-04-24] MEDS: Budesonide/Formoterol 80/4.5 1 PUFF INH IH SCH (20:42)
[2019-04-24] MEDS: Pregabalin 75 MG CAPSULE PO SCH (21:20)
[2019-04-24] MEDS: traZODone 50 MG TABLET PO SCH (21:20)
[2019-04-25] MEDS: Acetaminophen IV 1,000 MG/100 ML INFUS..BTL IVPB PRN (03:11)
[2019-04-25 07:11] LABS: Hematocrit 30.5 % (35.3-44.9); Hemoglobin 9.5 g/dL (11.5-15.4)
[2019-04-25 07:25] LABS: Calcium 8.1 mg/dL (8.6-10.3)
[2019-04-25] MEDS: *HR* SitaGLIPtin 25 MG TABLET PO SCH (07:34)
[2019-04-25] MEDS: Aspirin Enteric Coated 81 MG Tablet PO SCH (07:34)
[2019-04-25] MEDS: *HR* Rivaroxaban 10 MG TABLET PO SCH (07:34)
[2019-04-25] MEDS: Famotidine 20 MG TABLET PO SCH (07:35)
[2019-04-25] MEDS: *HR* OxyCODONE Immed Rel 5 MG TABLET PO PRN ×2 (07:35→12:20)
[2019-04-25] MEDS: BuPROPion XL (24 HR) 150 MG TABLET PO SCH (07:36)
[2019-04-25] MEDS: Loratadine 10 MG TABLET PO SCH (07:36)
[2019-04-25] MEDS: Topiramate 25 MG TABLET PO SCH (07:36)
[2019-04-25] MEDS: Isosorbide MONOnitrate (24 HR) 30 MG TAB.ER.24H PO SCH (07:37)
[2019-04-25] MEDS: Fluticasone Propionate Nasal 50 MCG/SPRAY BOTTLE NS SCH ×2 (07:37→21:15)
[2019-04-25] MEDS: Budesonide/Formoterol 80/4.5 1 PUFF INH IH SCH ×2 (08:08→20:44)
[2019-04-25] MEDS ORDERED: tiZANidine 4 MG TABLET PO PRN (11:03)
[2019-04-25] MEDS: Ondansetron 4 MG/2 ML VIAL IVP PRN (12:20)
[2019-04-25] MEDS: Miconazole 2% ointment 141 APPL/141 GM TUBE TP SCH (15:41)
[2019-04-25] MEDS: Metoprolol XL (24 HR) Succ 25 MG TAB.ER.24H PO SCH (17:36)
[2019-04-25] MEDS: Topiramate 100 MG TABLET PO SCH (17:36)
[2019-04-25] MEDS: HYDROcodone BIT/Homatropine 5 MG TABLET PO PRN (18:21)
[2019-04-25] MEDS: Pregabalin 75 MG CAPSULE PO SCH (21:14)
[2019-04-25] MEDS: traZODone 50 MG TABLET PO SCH (21:15)
[2019-04-26] MEDS: *HR* OxyCODONE Immed Rel 5 MG TABLET PO PRN ×3 (00:05→15:04)
[2019-04-26] MEDS: HYDROcodone BIT/Homatropine 5 MG TABLET PO PRN (03:25)
[2019-04-26] MEDS: Acetaminophen IV 1,000 MG/100 ML INFUS..BTL IVPB PRN (03:25)
[2019-04-26] MEDS: Ondansetron 4 MG/2 ML VIAL IVP PRN (03:30)
[2019-04-26] MEDS: Budesonide/Formoterol 80/4.5 1 PUFF INH IH SCH (07:48)
[2019-04-26] MEDS: BuPROPion XL (24 HR) 150 MG TABLET PO SCH (08:34)
[2019-04-26] MEDS: Loratadine 10 MG TABLET PO SCH (08:34)
[2019-04-26] MEDS: Aspirin Enteric Coated 81 MG Tablet PO SCH (08:35)
[2019-04-26] MEDS: Isosorbide MONOnitrate (24 HR) 30 MG TAB.ER.24H PO SCH (08:39)
[2019-04-26] MEDS: *HR* SitaGLIPtin 25 MG TABLET PO SCH (08:42)
[2019-04-26] MEDS: *HR* Rivaroxaban 10 MG TABLET PO SCH (08:42)
[2019-04-26] MEDS: Topiramate 25 MG TABLET PO SCH (08:42)
[2019-04-26] MEDS: Fluticasone Propionate Nasal 50 MCG/SPRAY BOTTLE NS SCH (08:43)
[2019-04-26] MEDS: Miconazole 2% ointment 141 APPL/141 GM TUBE TP SCH (08:44)
[2019-04-26] MEDS ORDERED: Famotidine 20 MG TABLET PO SCH (09:00)
[2019-04-26 10:32] LABS: Hematocrit 30.4 % (35.3-44.9); Hemoglobin 9.4 g/dL (11.5-15.4)
[2019-04-26 10:47] LABS: BUN/Creatinine Ratio 20 (6-26); Blood Urea Nitrogen 21 mg/dL (6-20); Calcium 8.3 mg/dL (8.6-10.3); Carbon Dioxide 20 mEq/L (23-29); Chloride 111 mEq/L (98-107); Glucose 147 mg/dL (70-105); Osmolality,Calculated 296 (280-300); Potassium 4.8 mEq/L (3.5-5.1); Sodium 140 mEq/L (136-145); eGFR For African Americans > 60 (> 60); eGFR For Non-African Americans 56 (> 60)
[2019-04-26 11:54] VITALS: BP 107/69
== END 2019-04-26 16:44 | DRG 483 ==
LOC: SAMDAY 08:46 → 3NENU 17:01
PROVIDERS: ADMIT Orthopaedic Surgery; ATTEND Orthopaedic Surgery

== ENCOUNTER 2019-09-16 10:46 | Observation (INO) ==
[2019-09-16] MEDS ORDERED: Clindamycin 900 MG/50 ML 900 MG/50 ML IV.SOLN IVPB ONE (11:20)
[2019-09-16 12:32] LABS: Basophils % 0.5 %; Eosinophils # 0.3 K/mcL (0.0-0.6); Eosinophils % 3.4 %; Hematocrit 34.8 % (35.3-44.9); Hemoglobin 10.7 g/dL (11.5-15.4); Immature Granulocytes % 0.7 % (0-4); Lymphocytes # 1.4 K/mcL (0.6-4.6); Mean Corpuscular HGB Conc 30.7 g/dL (31.6-35.5); Mean Corpuscular Hemoglobin 26.6 pg (28.0-33.3); Mean Corpuscular Volume 86.6 fL (83.0-100.0); Mean Platelet Volume 10.1 fL (9.4-12.4); Monocytes # 0.5 K/mcL (0.0-1.3); Monocytes % 6.3 %; Neutrophils # 6.3 K/mcL (1.6-8.9); Platelet Count 292 K/mcL (140-400); Red Blood Count 4.02 M/mcL (3.82-4.97); Red Cell Distribution Width 16.4 % (11.5-14.5); Segmented Neutrophils % 73.1 %; White Blood Count 8.6 K/mcL (4.3-11.1)
[2019-09-16 12:52] LABS: BUN/Creatinine Ratio 16 (6-26); Blood Urea Nitrogen 14 mg/dL (6-20); Calcium 8.5 mg/dL (8.6-10.3); Carbon Dioxide 23 mEq/L (23-29); Chloride 106 mEq/L (98-107); Glucose 146 mg/dL (70-105); Osmolality,Calculated 283 (280-300); Potassium 3.7 mEq/L (3.5-5.1); Sodium 135 mEq/L (136-145); eGFR For African Americans > 60 (> 60); eGFR For Non-African Americans > 60 (> 60)
[2019-09-16] MEDS ORDERED: Naloxone 0.4 MG/ML INJ IVP PRN (16:41)
[2019-09-16] MEDS ORDERED: MOM Conc 10 ML UD.LIQ PO PRN (16:41)
[2019-09-16] MEDS ORDERED: Mag Hydrox/Al Hydrox/Simeth 30 ML UDC PO PRN (16:41)
[2019-09-16] MEDS ORDERED: Acetaminophen 325 MG TABLET PO PRN (16:41)
[2019-09-16] MEDS ORDERED: Dextrose Gel 15 GM/37.5 ML TUBE PO PRN ×2 (16:55)
[2019-09-16] MEDS ORDERED: D5% in Water 1,000 ML IVC PRN (16:55)
[2019-09-16] MEDS ORDERED: *HR* Dextrose 50 % in Water (Syg) 50 ML SYRINGE IVP PRN (16:55)
[2019-09-16] MEDS: *HR* Rivaroxaban 10 MG TABLET PO SCH (17:21)
[2019-09-16] MEDS: *HR* HYDROcodone/Acet 5/325 mg TABLET PO PRN ×2 (17:21→23:56)
[2019-09-16] MEDS ORDERED: *HR* Heparin 5,000 UNIT/ML VIAL SQ SCH (18:00)
[2019-09-16] MEDS: Insulin LISPRO 300 UNITS/3 ML VIAL SQ SCH (20:38)
[2019-09-16] MEDS: QUEtiapine Fumarate 100 MG TABLET PO SCH (23:56)
[2019-09-17] MEDS: Insulin LISPRO 300 UNITS/3 ML VIAL SQ SCH ×4 (07:40→20:02)
[2019-09-17] MEDS: *HR* HYDROcodone/Acet 5/325 mg TABLET PO PRN ×3 (07:48→20:10)
[2019-09-17 07:59] LABS: Basophils # 0.1 K/mcL (0.0-0.2); Basophils % 0.9 %; Eosinophils # 0.3 K/mcL (0.0-0.6); Hematocrit 34.7 % (35.3-44.9); Hemoglobin 10.6 g/dL (11.5-15.4); Immature Granulocytes % 0.5 % (0-4); Lymphocytes # 1.6 K/mcL (0.6-4.6); Lymphocytes % 26.7 %; Mean Corpuscular HGB Conc 30.5 g/dL (31.6-35.5); Mean Corpuscular Hemoglobin 26.8 pg (28.0-33.3); Mean Corpuscular Volume 87.6 fL (83.0-100.0); Mean Platelet Volume 10.4 fL (9.4-12.4); Monocytes # 0.4 K/mcL (0.0-1.3); Monocytes % 7.5 %; Neutrophils # 3.5 K/mcL (1.6-8.9); Platelet Count 283 K/mcL (140-400); Red Blood Count 3.96 M/mcL (3.82-4.97); Red Cell Distribution Width 16.4 % (11.5-14.5); Segmented Neutrophils % 59.4 %; White Blood Count 5.8 K/mcL (4.3-11.1)
[2019-09-17 08:20] LABS: BUN/Creatinine Ratio 13 (6-26); Blood Urea Nitrogen 12 mg/dL (6-20); Calcium 8.3 mg/dL (8.6-10.3); Carbon Dioxide 25 mEq/L (23-29); Chloride 109 mEq/L (98-107); Glucose 129 mg/dL (70-105); Osmolality,Calculated 291 (280-300); Potassium 4.2 mEq/L (3.5-5.1); Sodium 140 mEq/L (136-145); eGFR For African Americans > 60 (> 60); eGFR For Non-African Americans > 60 (> 60)
[2019-09-17] MEDS ORDERED: Vancomycin (wt based) 1,000 MG VIAL IVPB ONE (10:00)
[2019-09-17] MEDS: Vancomycin 2,000 MG/520 ML IV.SOLN IVPB SCH ×2 (10:51→19:23)
[2019-09-17] MEDS: Ondansetron 4 MG/2 ML VIAL IVP PRN ×2 (12:03→20:09)
[2019-09-17] MEDS: *HR* Rivaroxaban 10 MG TABLET PO SCH (17:49)
[2019-09-17] MEDS: QUEtiapine Fumarate 100 MG TABLET PO SCH (20:10)
[2019-09-18] MEDS: Vancomycin 2,000 MG/520 ML IV.SOLN IVPB SCH ×2 (02:36→11:17)
[2019-09-18 03:07] LABS: Hematocrit 38.9 % (35.3-44.9); Hemoglobin 11.4 g/dL (11.5-15.4); Mean Corpuscular HGB Conc 29.3 g/dL (31.6-35.5); Mean Corpuscular Hemoglobin 26.3 pg (28.0-33.3); Mean Corpuscular Volume 89.8 fL (83.0-100.0); Mean Platelet Volume 10.3 fL (9.4-12.4); Platelet Count 313 K/mcL (140-400); Red Blood Count 4.33 M/mcL (3.82-4.97); Red Cell Distribution Width 16.7 % (11.5-14.5); White Blood Count 6.6 K/mcL (4.3-11.1)
[2019-09-18 03:24] LABS: BUN/Creatinine Ratio 14 (6-26); Blood Urea Nitrogen 14 mg/dL (6-20); Calcium 8.5 mg/dL (8.6-10.3); Carbon Dioxide 27 mEq/L (23-29); Chloride 104 mEq/L (98-107); Glucose 157 mg/dL (70-105); Osmolality,Calculated 290 (280-300); Sodium 138 mEq/L (136-145); eGFR For African Americans > 60 (> 60); eGFR For Non-African Americans 58 (> 60)
[2019-09-18] MEDS: Ondansetron 4 MG/2 ML VIAL IVP PRN (05:59)
[2019-09-18] MEDS: *HR* HYDROcodone/Acet 5/325 mg TABLET PO PRN ×2 (06:00→12:05)
[2019-09-18] MEDS: Insulin LISPRO 300 UNITS/3 ML VIAL SQ SCH ×4 (07:58→21:11)
[2019-09-18] MEDS: *HR* Promethazine 25 MG/ML VIAL IVP PRN (12:05)
[2019-09-18] MEDS: *HR* Rivaroxaban 10 MG TABLET PO SCH (17:05)
[2019-09-18] MEDS: QUEtiapine Fumarate 100 MG TABLET PO SCH (21:11)
[2019-09-19] MEDS: *HR* HYDROcodone/Acet 5/325 mg TABLET PO PRN ×3 (02:39→15:40)
[2019-09-19] MEDS: Ondansetron 4 MG/2 ML VIAL IVP PRN ×2 (02:39→15:41)
[2019-09-19] MEDS: Insulin LISPRO 300 UNITS/3 ML VIAL SQ SCH ×2 (08:01→11:06)
[2019-09-19] MEDS: *HR* Promethazine 25 MG/ML VIAL IVP PRN (08:41)
[2019-09-19 08:53] LABS: Hematocrit 35.5 % (35.3-44.9); Hemoglobin 10.7 g/dL (11.5-15.4); Mean Corpuscular HGB Conc 30.1 g/dL (31.6-35.5); Mean Corpuscular Hemoglobin 26.3 pg (28.0-33.3); Mean Corpuscular Volume 87.2 fL (83.0-100.0); Mean Platelet Volume 10.5 fL (9.4-12.4); Platelet Count 281 K/mcL (140-400); Red Blood Count 4.07 M/mcL (3.82-4.97); Red Cell Distribution Width 16.5 % (11.5-14.5); White Blood Count 6.3 K/mcL (4.3-11.1)
[2019-09-19] MEDS ORDERED: Vancomycin 1,750 MG/517.5 ML IV.SOLN IVPB SCH (09:00)
[2019-09-19 15:16] VITALS: BP 130/73
== END 2019-09-19 17:03 | disposition home or self-care (01) ==
LOC: EMEROOARM 10:46 → 3BNU 10:46
PROVIDERS: ADMIT Internal Medicine; ATTEND Internal Medicine

== ENCOUNTER 2019-10-24 13:02 | Inpatient (IN) ==
[2019-10-24 14:08] LABS: Hematocrit 31.7 % (35.3-44.9); Hemoglobin 9.8 g/dL (11.5-15.4); Mean Corpuscular HGB Conc 30.9 g/dL (31.6-35.5); Mean Corpuscular Hemoglobin 27.2 pg (28.0-33.3); Mean Corpuscular Volume 88.1 fL (83.0-100.0); Mean Platelet Volume 11.3 fL (9.4-12.4); Platelet Count 272 K/mcL (140-400); Red Cell Distribution Width 18.1 % (11.5-14.5); White Blood Count 10.2 K/mcL (4.3-11.1)
[2019-10-24 14:39] LABS: Alanine Aminotransferase 15 Units/L (7-52); Albumin 3.6 g/dL (3.5-5.7); Alkaline Phosphatase 130 Units/L (34-104); Aspartate Amino Transferase 13 Units/L (13-39); BUN/Creatinine Ratio 28 (6-26); Bilirubin,Direct 0.1 mg/dL (0.0-0.2); Bilirubin,Indirect 0.2 mg/dL (0.0-1.0); Bilirubin,Total 0.3 mg/dL (0.3-1.0); Blood Urea Nitrogen 126 mg/dL (6-20); Calcium 8.2 mg/dL (8.6-10.3); Carbon Dioxide 13 mEq/L (23-29); Chloride 110 mEq/L (98-107); Globulin 3.5 g/dL (2.4-3.5); Glucose 138 mg/dL (70-105); Osmolality,Calculated 327 (280-300); Potassium 4.5 mEq/L (3.5-5.1); Sodium 137 mEq/L (136-145); Total Protein 7.1 g/dL (6.4-8.9); Troponin I < 0.03 ng/mL (< 0.04); eGFR For African Americans 12 (> 60); eGFR For Non-African Americans 10 (> 60)
[2019-10-24] MEDS ORDERED: Naloxone 0.4 MG/ML INJ IVP PRN (15:29)
[2019-10-24 15:54] LABS: INR 1.3; Prothrombin Time 14.5 Seconds (9.4-12.1)
[2019-10-24 15:55] LABS: Creatine Kinase 263 Units/L (30-223)
[2019-10-24] MEDS ORDERED: D5% in Water 1,000 ML IVC PRN (16:45)
[2019-10-24] MEDS ORDERED: Dextrose Gel 15 GM/37.5 ML TUBE PO PRN ×2 (16:45)
[2019-10-24] MEDS ORDERED: *HR* Dextrose 50 % in Water (Vial) 50 ML VIAL IVP PRN (16:45)
[2019-10-24] MEDS: Ringers Solution, Lactated 1,000 ML IVC SCH (16:46)
[2019-10-24] MEDS: *HR* HYDROcodone/Acet 5/325 mg TABLET PO PRN ×2 (17:46→23:59)
[2019-10-24 21:30] LABS: Alanine Aminotransferase 15 Units/L (7-52); Albumin 3.3 g/dL (3.5-5.7); Alkaline Phosphatase 123 Units/L (34-104); Aspartate Amino Transferase 16 Units/L (13-39); Bilirubin,Total 0.3 mg/dL (0.3-1.0); Blood Urea Nitrogen > 130 mg/dL (6-20); Calcium 7.8 mg/dL (8.6-10.3); Carbon Dioxide 12 mEq/L (23-29); Chloride 113 mEq/L (98-107); Globulin 3.2 g/dL (2.4-3.5); Glucose 143 mg/dL (70-105); Sodium 137 mEq/L (136-145); Total Protein 6.5 g/dL (6.4-8.9); eGFR For African Americans 13 (> 60); eGFR For Non-African Americans 11 (> 60)
[2019-10-24] MEDS: Ondansetron 4 MG/2 ML VIAL IVP PRN (23:59)
[2019-10-25 04:39] LABS: Adenovirus F 40/41 PCR Not detected (Not detect); Astrovirus PCR Not detected (Not detect); C.difficile Toxin A/B Gene PCR Not detected (Not detect); Campylobacter by PCR Not detected (Not detect); Cryptosporidium by PCR Not detected (Not detect); Cyclospora cayetanensis PCR Not detected (Not detect); E. coli O157 by PCR Not detected (Not detect); Entamoeba histolytica PCR Not detected (Not detect); Enteroaggregative E.coli(EAEC) Not detected (Not detect); Enteropathogenic E.coli(EPEC) Not detected (Not detect); Enterotoxigenic E.coli (ETEC) Not detected (Not detect); Giardia lamblia PCR Not detected (Not detect); Norovirus GI/GII PCR Not detected (Not detect); Plesiomonas shigelloides PCR Not detected (Not detect); Rotavirus A PCR Not detected (Not detect); Salmonella PCR Not detected (Not detect); Sapovirus PCR Not detected (Not detect); Shig/EnteroinvasiveE coli EIEC Not detected (Not detect); Shigalike tox-prod E coli STEC Not detected (Not detect); Vibrio PCR Not detected (Not detect); Vibrio cholerae PCR Not detected (Not detect); Yersinia enterocolitica PCR Not detected (Not detect)
[2019-10-25 05:16] LABS: Basophils % 0.5 %; Eosinophils # 0.2 K/mcL (0.0-0.6); Eosinophils % 2.5 %; Hematocrit 31.4 % (35.3-44.9); Hemoglobin 9.4 g/dL (11.5-15.4); Immature Granulocytes % 0.5 % (0-4); Lymphocytes # 1.4 K/mcL (0.6-4.6); Lymphocytes % 17.8 %; Mean Corpuscular HGB Conc 29.9 g/dL (31.6-35.5); Mean Corpuscular Hemoglobin 26.7 pg (28.0-33.3); Mean Corpuscular Volume 89.2 fL (83.0-100.0); Mean Platelet Volume 11.6 fL (9.4-12.4); Monocytes # 0.6 K/mcL (0.0-1.3); Monocytes % 8.3 %; Neutrophils # 5.4 K/mcL (1.6-8.9); Platelet Count 284 K/mcL (140-400); Red Blood Count 3.52 M/mcL (3.82-4.97); Red Cell Distribution Width 18.2 % (11.5-14.5); Segmented Neutrophils % 70.4 %; White Blood Count 7.7 K/mcL (4.3-11.1)
[2019-10-25 05:29] LABS: Bilirubin,Urine Negative (Negative); Blood,Urine Small (Negative); Clarity,Urine Clear (Clear); Color,Urine Light-Yellow (Yellow); Glucose,Urine (UA) Normal (Normal); Hyaline Casts,Urine Few per lpf (None Seen); Ketones,Urine Negative (Negative); Leukocyte Esterase,Urine Small (Negative); Mucus,Urine Few per lpf (None-Few); Nitrite,Urine Negative (Negative); PH,Urine 5.5 pH Units (5.0-8.0); Protein,Urine Trace mg/dL (Neg-Trace); Specific Gravity,Urine 1.015 (1.010-1.025); Squamous Epithelial Cell,Urine Few per hpf (None-Few); Urobilinogen,Urine Normal (Normal)
[2019-10-25 05:36] LABS: % Iron Saturation 16 % (15-50); Iron 41 mcg/dL (50-170); Transferrin 183 mg/dL (203-362)
[2019-10-25 05:39] LABS: Potassium 4.4 mEq/L (3.5-5.1)
[2019-10-25 05:54] LABS: Ferritin 118 ng/mL (10-120)
[2019-10-25 06:00] LABS: Folate 8.8 ng/mL (3.0-16.0)
[2019-10-25 06:01] LABS: Vitamin B12 303 pg/mL (250-1100)
[2019-10-25] MEDS: Ringers Solution, Lactated 1,000 ML IVC SCH (06:30)
[2019-10-25] MEDS ORDERED: Sodium Bicarbonate 150 MEQ in D5% in Water 1,000 ML IVC SCH (08:15)
[2019-10-25] MEDS: Insulin LISPRO 300 UNITS/3 ML VIAL SQ SCH ×3 (08:21→17:15)
[2019-10-25] MEDS: Nystatin POWDER 30 GM BOTTLE TP SCH ×2 (08:22→23:03)
[2019-10-25] MEDS ORDERED: *HR* Heparin 5,000 UNIT/ML VIAL IVP PRN ×2 (08:59)
[2019-10-25 10:42] LABS: Hematocrit 31.2 % (35.3-44.9); Hemoglobin 9.3 g/dL (11.5-15.4); Mean Corpuscular HGB Conc 29.8 g/dL (31.6-35.5); Mean Corpuscular Hemoglobin 27.1 pg (28.0-33.3); Mean Platelet Volume 11.2 fL (9.4-12.4); Platelet Count 270 K/mcL (140-400); Red Blood Count 3.43 M/mcL (3.82-4.97); Red Cell Distribution Width 18.1 % (11.5-14.5); White Blood Count 6.6 K/mcL (4.3-11.1)
[2019-10-25] MEDS: Heparin 25,000 UNIT/250 ML D5W 25,000 UNIT/250 ML IV.SOLN IVC SCH (10:47)
[2019-10-25 10:56] LABS: INR 1.1; Prothrombin Time 12.7 Seconds (9.4-12.1)
[2019-10-25 10:57] LABS: Heparin anti-factor XA UFH 0.49 IU/mL (0.30-0.70)
[2019-10-25 10:59] LABS: Activated Partial Thrombo Time 31.5 Seconds (26.0-36.0)
[2019-10-25 11:53] LABS: Uric Acid 11.9 mg/dL (2.3-7.6)
[2019-10-25 12:28] LABS: Hepatitis B Surface Antigen Nonreactive (Nonreactive)
[2019-10-25 12:57] LABS: Hepatitis B Core IgM Nonreactive (Nonreactive)
[2019-10-25 12:58] LABS: Hepatitis A Antibody IgM Nonreactive (Nonreactive); Hepatitis C Virus Antibody Nonreactive (Nonreactive)
[2019-10-25] MEDS: Sodium Bicarbonate 150 MEQ in D5% in Water 1,000 ML IVC SCH (17:16)
[2019-10-25] MEDS: QUEtiapine Fumarate 100 MG TABLET PO SCH (23:03)
[2019-10-25] MEDS: Famotidine 20 MG TABLET PO SCH (23:03)
[2019-10-25] MEDS: Aspirin Enteric Coated 81 MG Tablet PO SCH (23:03)
[2019-10-26 00:59] LABS: Hematocrit 29.3 % (35.3-44.9); Hemoglobin 9.3 g/dL (11.5-15.4); Mean Corpuscular HGB Conc 31.7 g/dL (31.6-35.5); Mean Corpuscular Hemoglobin 27.7 pg (28.0-33.3); Mean Corpuscular Volume 87.2 fL (83.0-100.0); Mean Platelet Volume 11.1 fL (9.4-12.4); Platelet Count 305 K/mcL (140-400); Red Blood Count 3.36 M/mcL (3.82-4.97); Red Cell Distribution Width 17.7 % (11.5-14.5); White Blood Count 6.2 K/mcL (4.3-11.1)
[2019-10-26 01:19] LABS: Potassium 4.2 mEq/L (3.5-5.1)
[2019-10-26] MEDS: Sodium Bicarbonate 150 MEQ in D5% in Water 1,000 ML IVC SCH (02:11)
[2019-10-26] MEDS: Heparin 25,000 UNIT/250 ML D5W 25,000 UNIT/250 ML IV.SOLN IVC SCH (02:11)
[2019-10-26] MEDS ORDERED: Ringers Solution, Lactated 1,000 ML IVC SCH (07:30)
[2019-10-26] MEDS: Budesonide/Formoterol 80/4.5 1 PUFF INH IH SCH ×2 (07:43→19:41)
[2019-10-26] MEDS: *HR* SitaGLIPtin 25 MG TABLET PO SCH (08:18)
[2019-10-26] MEDS: Doxycycline 100 MG CAPSULE PO SCH ×2 (08:18→22:02)
[2019-10-26] MEDS: Acetaminophen 325 MG TABLET PO SCH (08:19)
[2019-10-26] MEDS: Nystatin POWDER 30 GM BOTTLE TP SCH ×2 (08:19→22:03)
[2019-10-26] MEDS: Insulin LISPRO 300 UNITS/3 ML VIAL SQ SCH ×3 (08:19→16:42)
[2019-10-26] MEDS: *HR* Rivaroxaban 10 MG TABLET PO SCH (16:41)
[2019-10-26] MEDS: QUEtiapine Fumarate 100 MG TABLET PO SCH (22:02)
[2019-10-26] MEDS: Aspirin Enteric Coated 81 MG Tablet PO SCH (22:02)
[2019-10-26] MEDS: Famotidine 20 MG TABLET PO SCH (22:02)
[2019-10-26] MEDS: Pregabalin 75 MG CAPSULE PO SCH (22:02)
[2019-10-26] MEDS: Ondansetron 4 MG/2 ML VIAL IVP PRN (22:36)
[2019-10-26] MEDS: *HR* HYDROcodone/Acet 5/325 mg TABLET PO PRN (23:57)
[2019-10-27 02:22] LABS: BUN/Creatinine Ratio 35 (6-26); Blood Urea Nitrogen 39 mg/dL (6-20); Carbon Dioxide 22 mEq/L (23-29); Chloride 116 mEq/L (98-107); Potassium 4.6 mEq/L (3.5-5.1); Sodium 144 mEq/L (136-145); eGFR For African Americans > 60 (> 60)
[2019-10-27 02:23] LABS: Calcium 8.3 mg/dL (8.6-10.3); Glucose 140 mg/dL (70-105); Osmolality,Calculated 310 (280-300); eGFR For Non-African Americans 50 (> 60)
[2019-10-27] MEDS: Budesonide/Formoterol 80/4.5 1 PUFF INH IH SCH ×2 (07:26→22:29)
[2019-10-27] MEDS: Insulin LISPRO 300 UNITS/3 ML VIAL SQ SCH ×3 (08:55→18:25)
[2019-10-27] MEDS: Acetaminophen 325 MG TABLET PO SCH (09:55)
[2019-10-27] MEDS: *HR* SitaGLIPtin 25 MG TABLET PO SCH (11:54)
[2019-10-27] MEDS: *HR* HYDROcodone/Acet 5/325 mg TABLET PO PRN ×2 (11:54→17:46)
[2019-10-27] MEDS: Doxycycline 100 MG CAPSULE PO SCH ×2 (11:54→22:20)
[2019-10-27] MEDS: Nystatin POWDER 30 GM BOTTLE TP SCH ×2 (11:55→22:22)
[2019-10-27] MEDS: Ondansetron 4 MG/2 ML VIAL IVP PRN ×2 (12:04→22:51)
[2019-10-27] MEDS: *HR* Rivaroxaban 10 MG TABLET PO SCH (17:46)
[2019-10-27] MEDS: Pregabalin 75 MG CAPSULE PO SCH (22:20)
[2019-10-27] MEDS: Aspirin Enteric Coated 81 MG Tablet PO SCH (22:20)
[2019-10-27] MEDS: Famotidine 20 MG TABLET PO SCH (22:21)
[2019-10-27] MEDS: QUEtiapine Fumarate 100 MG TABLET PO SCH (22:21)
[2019-10-27] MEDS: FLUTICASONE FUROATE 200 MCG IH SCH (22:31)
[2019-10-28 02:44] LABS: BUN/Creatinine Ratio 24 (6-26); Blood Urea Nitrogen 25 mg/dL (6-20); Calcium 8.3 mg/dL (8.6-10.3); Carbon Dioxide 20 mEq/L (23-29); Chloride 114 mEq/L (98-107); Glucose 146 mg/dL (70-105); Osmolality,Calculated 299 (280-300); Potassium 4.8 mEq/L (3.5-5.1); Sodium 141 mEq/L (136-145); eGFR For African Americans > 60 (> 60); eGFR For Non-African Americans 55 (> 60)
[2019-10-28] MEDS: Budesonide/Formoterol 80/4.5 1 PUFF INH IH SCH ×2 (08:02→20:43)
[2019-10-28] MEDS: *HR* SitaGLIPtin 25 MG TABLET PO SCH (08:26)
[2019-10-28] MEDS: Acetaminophen 325 MG TABLET PO SCH (08:26)
[2019-10-28] MEDS: Doxycycline 100 MG CAPSULE PO SCH ×2 (08:26→20:39)
[2019-10-28] MEDS: Ondansetron 4 MG/2 ML VIAL IVP PRN ×2 (08:27→20:42)
[2019-10-28] MEDS: Nystatin POWDER 30 GM BOTTLE TP SCH ×2 (08:28→20:47)
[2019-10-28] MEDS: Insulin LISPRO 300 UNITS/3 ML VIAL SQ SCH ×3 (08:28→17:49)
[2019-10-28] MEDS: *HR* HYDROcodone/Acet 5/325 mg TABLET PO PRN ×2 (12:13→17:50)
[2019-10-28] MEDS: *HR* Rivaroxaban 10 MG TABLET PO SCH (17:50)
[2019-10-28] MEDS: Pregabalin 75 MG CAPSULE PO SCH (20:37)
[2019-10-28] MEDS: Aspirin Enteric Coated 81 MG Tablet PO SCH (20:38)
[2019-10-28] MEDS: Famotidine 20 MG TABLET PO SCH (20:38)
[2019-10-28] MEDS: QUEtiapine Fumarate 100 MG TABLET PO SCH (20:42)
[2019-10-28] MEDS: FLUTICASONE FUROATE 200 MCG IH SCH (22:32)
[2019-10-29] MEDS: Ondansetron 4 MG/2 ML VIAL IVP PRN ×2 (02:53→08:54)
[2019-10-29] MEDS: *HR* HYDROcodone/Acet 5/325 mg TABLET PO PRN ×2 (03:34→20:23)
[2019-10-29] MEDS: Budesonide/Formoterol 80/4.5 1 PUFF INH IH SCH ×2 (07:31→19:53)
[2019-10-29] MEDS: *HR* SitaGLIPtin 25 MG TABLET PO SCH (08:53)
[2019-10-29] MEDS: Doxycycline 100 MG CAPSULE PO SCH ×2 (08:53→20:23)
[2019-10-29] MEDS: Acetaminophen 325 MG TABLET PO SCH (08:54)
[2019-10-29] MEDS: Insulin LISPRO 300 UNITS/3 ML VIAL SQ SCH ×3 (08:54→16:19)
[2019-10-29] MEDS: Nystatin POWDER 30 GM BOTTLE TP SCH ×2 (08:54→20:35)
[2019-10-29] MEDS: *HR* Rivaroxaban 10 MG TABLET PO SCH (17:48)
[2019-10-29] MEDS: Pregabalin 75 MG CAPSULE PO SCH (20:22)
[2019-10-29] MEDS: QUEtiapine Fumarate 100 MG TABLET PO SCH (20:23)
[2019-10-29] MEDS: Aspirin Enteric Coated 81 MG Tablet PO SCH (20:23)
[2019-10-29] MEDS: Famotidine 20 MG TABLET PO SCH (20:23)
[2019-10-30] MEDS: *HR* HYDROcodone/Acet 5/325 mg TABLET PO PRN (04:01)
[2019-10-30] MEDS: Insulin LISPRO 300 UNITS/3 ML VIAL SQ SCH ×2 (07:31→11:23)
[2019-10-30] MEDS: *HR* SitaGLIPtin 25 MG TABLET PO SCH (07:41)
[2019-10-30] MEDS: Doxycycline 100 MG CAPSULE PO SCH (07:41)
[2019-10-30] MEDS: Nystatin POWDER 30 GM BOTTLE TP SCH (07:41)
[2019-10-30] MEDS: Acetaminophen 325 MG TABLET PO SCH (07:41)
[2019-10-30] MEDS: Budesonide/Formoterol 80/4.5 1 PUFF INH IH SCH (10:25)
[2019-10-30 11:06] VITALS: BP 128/71
== END 2019-10-30 11:34 | disposition home or self-care (01) | DRG 682 ==
LOC: EMEROOARM 13:02 → 2ANU 13:02 → SUATTDRO 10-25 12:09
PROVIDERS: ADMIT Internal Medicine; ATTEND Internal Medicine

== ENCOUNTER 2020-03-27 15:00 | Observation (INO) ==
[2020-03-27 15:56] LABS: Basophils # 0.1 K/mcL (0.0-0.2); Basophils % 0.6 %; Eosinophils # 0.4 K/mcL (0.0-0.6); Eosinophils % 4.2 %; Hematocrit 37.1 % (35.3-44.9); Hemoglobin 11.2 g/dL (11.5-15.4); Immature Granulocytes % 0.8 % (0-4); Lymphocytes # 1.5 K/mcL (0.6-4.6); Lymphocytes % 17.4 %; Mean Corpuscular HGB Conc 30.2 g/dL (31.6-35.5); Mean Corpuscular Hemoglobin 27.7 pg (28.0-33.3); Mean Corpuscular Volume 91.6 fL (83.0-100.0); Mean Platelet Volume 10.4 fL (9.4-12.4); Monocytes # 0.7 K/mcL (0.0-1.3); Monocytes % 8.2 %; Neutrophils # 5.7 K/mcL (1.6-8.9); Platelet Count 258 K/mcL (140-400); Red Blood Count 4.05 M/mcL (3.82-4.97); Red Cell Distribution Width 16.2 % (11.5-14.5); Segmented Neutrophils % 68.8 %; White Blood Count 8.3 K/mcL (4.3-11.1)
[2020-03-27 16:05] LABS: INR 1.6; Prothrombin Time 18.6 Seconds (9.4-12.1)
[2020-03-27 16:08] LABS: Activated Partial Thrombo Time 30.3 Seconds (26.0-36.0)
[2020-03-27 16:26] LABS: Alanine Aminotransferase 29 Units/L (7-52); Albumin 3.9 g/dL (3.5-5.7); Albumin/Globulin Ratio 1.2 (1.1-2.2); Alkaline Phosphatase 119 Units/L (34-104); Aspartate Amino Transferase 21 Units/L (13-39); BUN/Creatinine Ratio 15 (6-26); Bilirubin,Total 0.3 mg/dL (0.3-1.0); Blood Urea Nitrogen 25 mg/dL (6-20); Calcium 9.6 mg/dL (8.6-10.3); Carbon Dioxide 21 mEq/L (23-29); Chloride 109 mEq/L (98-107); Creatine Kinase 84 Units/L (30-223); Globulin 3.3 g/dL (2.4-3.5); Glucose 152 mg/dL (70-105); Magnesium 2.2 mg/dL (1.6-2.6); Osmolality,Calculated 295 (280-300); Phosphorous 4.7 mg/dL (2.7-4.5); Potassium 3.7 mEq/L (3.5-5.1); Sodium 139 mEq/L (136-145); Total Protein 7.2 g/dL (6.4-8.9); Troponin I < 0.03 ng/mL (< 0.04); eGFR For African Americans 40 (> 60); eGFR For Non-African Americans 33 (> 60)
[2020-03-27] MEDS: 0.9 % Sodium Chloride 1,000 ML IVC SCH ×2 (17:06→18:20)
[2020-03-27] MEDS ORDERED: Aspirin 81 MG TAB.CHEW PO SCH (17:15)
[2020-03-27] MEDS ORDERED: Acetaminophen 325 MG TABLET PO PRN (17:26)
[2020-03-27] MEDS ORDERED: Ondansetron 4 MG/2 ML VIAL IVP PRN (17:26)
[2020-03-27] MEDS ORDERED: *HR* HYDROcodone/Acet 5/325 mg TABLET PO PRN (18:08)
[2020-03-27 20:16] LABS: Amorphous Sediment,Urine Few per hpf (None-Few); Bacteria,Urine Few per hpf (None-Few); Bilirubin,Urine Negative (Negative); Blood,Urine Large (Negative); Clarity,Urine Turbid (Clear); Color,Urine Yellow (Yellow); Glucose,Urine (UA) Normal (Normal); Hyaline Casts,Urine Moderate per lpf (None Seen); Ketones,Urine Negative (Negative); Leukocyte Esterase,Urine Trace (Negative); Mucus,Urine Few per lpf (None-Few); Nitrite,Urine Negative (Negative); PH,Urine 5.5 pH Units (5.0-8.0); Protein,Urine 30 mg/dL (Neg-Trace); RBC,Urine TNTC per hpf (0-3); Squamous Epithelial Cell,Urine Moderate per hpf (None-Few); Urobilinogen,Urine Normal (Normal); WBC,Urine 15-30 per hpf (0-3)
[2020-03-27] MEDS ORDERED: Pregabalin 75 MG CAPSULE PO SCH (21:00)
[2020-03-27] MEDS ORDERED: QUEtiapine Fumarate 100 MG TABLET PO SCH (21:00)
[2020-03-27] MEDS ORDERED: Aspirin Enteric Coated 81 MG Tablet PO SCH (21:00)
[2020-03-27 21:51] LABS: Adenovirus Not Detected (Not Detect); Bordetella Pertussis Not Detected (Not Detect); Chlamydophila pneumoniae Not Detected (Not Detect); Coronavirus 229E Not Detected (Not Detect); Coronavirus HKU1 Not Detected (Not Detect); Coronavirus NL63 Not Detected (Not Detect); Coronavirus OC43 Not Detected (Not Detect); Human Metapneumovirus Not Detected (Not Detect); Human Rhinovirus/Enterovirus Not Detected (Not Detect); Influenza A Subtype 2009 H1 Not Detected (Not Detect); Influenza B Not Detected (Not Detect); Mycoplasma pneumoniae Not Detected (Not Detect); Parainfluenza Virus 1 Not Detected (Not Detect); Parainfluenza Virus 2 Not Detected (Not Detect); Parainfluenza Virus 3 Not Detected (Not Detect); Parainfluenza Virus 4 Not Detected (Not Detect); Respiratory Syncytial Virus Not Detected (Not Detect); SARS-CoV-2 Not Detected (Not Detect)
[2020-03-28 05:12] LABS: BUN/Creatinine Ratio 20 (6-26); Blood Urea Nitrogen 22 mg/dL (6-20); Calcium 8.4 mg/dL (8.6-10.3); Carbon Dioxide 19 mEq/L (23-29); Chloride 115 mEq/L (98-107); Glucose 161 mg/dL (70-105); Magnesium 2.1 mg/dL (1.6-2.6); Osmolality,Calculated 299 (280-300); Phosphorous 4.5 mg/dL (2.7-4.5); Potassium 4.3 mEq/L (3.5-5.1); Sodium 141 mEq/L (136-145); eGFR For African Americans > 60 (> 60); eGFR For Non-African Americans 53 (> 60)
[2020-03-28 05:57] LABS: Hematocrit 34.7 % (35.3-44.9); Hemoglobin 10.6 g/dL (11.5-15.4); Mean Corpuscular HGB Conc 30.5 g/dL (31.6-35.5); Mean Corpuscular Hemoglobin 28.1 pg (28.0-33.3); Mean Platelet Volume 10.7 fL (9.4-12.4); Platelet Count 242 K/mcL (140-400); Red Blood Count 3.77 M/mcL (3.82-4.97); White Blood Count 5.6 K/mcL (4.3-11.1)
[2020-03-28 07:23] VITALS: BP 101/61
[2020-03-28] MEDS ORDERED: *HR* Rivaroxaban 10 MG TABLET PO SCH (09:00)
[2020-03-28] MEDS ORDERED: Budesonide/Formoterol 80/4.5 1 PUFF INH IH SCH (10:00)
== END 2020-03-28 14:57 | disposition home or self-care (01) ==
LOC: EMEROOARM 15:00 → 3BNU 15:00 → SUATTDRO 18:14 → 3BNU 21:15
PROVIDERS: ADMIT Internal Medicine; ATTEND Internal Medicine

== ENCOUNTER 2020-07-11 07:52 | Inpatient (IN) ==
[2020-07-11] MEDS ORDERED: Aspirin 81 MG TAB.CHEW PO STA (08:06)
[2020-07-11] MEDS ORDERED: Ipratropium/Albuterol Neb 3 ML IH ONE (08:06)
[2020-07-11] MEDS ORDERED: Furosemide 40 MG/4 ML VIAL IVP ONE (08:18)
[2020-07-11] MEDS: Nitroglycerin 0.4 MG TAB.SUBL SL PRN ×4 (08:30→20:36)
[2020-07-11 08:33] LABS: Basophils # 0.1 K/mcL (0.0-0.2); Basophils % 0.6 %; Eosinophils # 0.3 K/mcL (0.0-0.6); Eosinophils % 3.5 %; Hematocrit 40.3 % (35.3-44.9); Hemoglobin 12.4 g/dL (11.5-15.4); Immature Granulocytes % 0.6 % (0-4); Lymphocytes # 1.6 K/mcL (0.6-4.6); Lymphocytes % 17.7 %; Mean Corpuscular HGB Conc 30.8 g/dL (31.6-35.5); Mean Corpuscular Hemoglobin 27.7 pg (28.0-33.3); Mean Corpuscular Volume 90.2 fL (83.0-100.0); Mean Platelet Volume 10.8 fL (9.4-12.4); Monocytes # 0.6 K/mcL (0.0-1.3); Neutrophils # 6.3 K/mcL (1.6-8.9); Platelet Count 299 K/mcL (140-400); Red Blood Count 4.47 M/mcL (3.82-4.97); Red Cell Distribution Width 16.5 % (11.5-14.5); Segmented Neutrophils % 70.6 %; White Blood Count 8.9 K/mcL (4.3-11.1)
[2020-07-11 08:40] LABS: INR 1.1
[2020-07-11] MEDS ORDERED: *HR* HYDROmorphone (PF) 1 MG/ML SYRINGE IVP ONE (08:43)
[2020-07-11 08:50] LABS: Alanine Aminotransferase 29 Units/L (7-52); Albumin 4.3 g/dL (3.5-5.7); Albumin/Globulin Ratio 1.3 (1.1-2.2); Alkaline Phosphatase 149 Units/L (34-104); Aspartate Amino Transferase 17 Units/L (13-39); BUN/Creatinine Ratio 17 (6-26); Bilirubin,Direct 0.1 mg/dL (0.0-0.2); Bilirubin,Indirect 0.3 mg/dL (0.0-1.0); Bilirubin,Total 0.4 mg/dL (0.3-1.0); Blood Urea Nitrogen 15 mg/dL (6-20); Calcium 9.5 mg/dL (8.6-10.3); Carbon Dioxide 24 mEq/L (23-29); Chloride 105 mEq/L (98-107); Globulin 3.3 g/dL (2.4-3.5); Glucose 146 mg/dL (70-105); Osmolality,Calculated 291 (280-300); Potassium 4.4 mEq/L (3.5-5.1); Sodium 139 mEq/L (136-145); Total Protein 7.6 g/dL (6.4-8.9); Troponin I < 0.03 ng/mL (< 0.04); eGFR For African Americans > 60 (> 60); eGFR For Non-African Americans > 60 (> 60)
[2020-07-11 09:15] LABS: ABG Base Excess 3 mEq/L (-2 to 3); ABG HCO3 22 mEq/L (21-27); ABG Oxygen Saturation 100 % (95-98); ABG PCO2 21 mmHg (35-45); ABG PH 7.64 pH Units (7.32-7.45); ABG PO2 203 mmHg (85-104); ABG TCO2 23 mEq/L (20-26)
[2020-07-11] MEDS ORDERED: methylPREDNISolone 125 MG/2 ML VIAL IVP ONE (09:28)
[2020-07-11] MEDS ORDERED: *HR* Heparin 5,000 UNIT/ML VIAL IVP ONE (09:57)
[2020-07-11] MEDS ORDERED: *HR* Heparin 5,000 UNIT/ML VIAL IVP PRN ×2 (09:57)
[2020-07-11] MEDS ORDERED: Heparin 25,000UNIT/250ML 1/2NS 25,000 UNIT/250 ML IV.SOLN IVC SCH (10:00)
[2020-07-11] MEDS ORDERED: Ondansetron 4 MG/2 ML VIAL IVP PRN (10:08)
[2020-07-11] MEDS ORDERED: Naloxone 0.4 MG/ML INJ IVP PRN (10:08)
[2020-07-11] MEDS ORDERED: Isovue-370 500 ML BOTTLE IVP ONE (10:14)
[2020-07-11] MEDS ORDERED: D5% in Water 1,000 ML IVC PRN ×2 (10:21→16:13)
[2020-07-11] MEDS ORDERED: *HR* Dextrose 50 % in Water (Vial) 50 ML VIAL IVP PRN ×2 (10:21→16:13)
[2020-07-11] MEDS ORDERED: Dextrose Gel 15 GM/37.5 ML TUBE PO PRN ×4 (10:21→16:13)
[2020-07-11 10:23] LABS: Adenovirus Not Detected (Not Detect); Bordetella Pertussis Not Detected (Not Detect); Chlamydophila pneumoniae Not Detected (Not Detect); Coronavirus 229E Not Detected (Not Detect); Coronavirus HKU1 Not Detected (Not Detect); Coronavirus NL63 Not Detected (Not Detect); Coronavirus OC43 Not Detected (Not Detect); Human Metapneumovirus Not Detected (Not Detect); Human Rhinovirus/Enterovirus Not Detected (Not Detect); Influenza A Subtype 2009 H1 Not Detected (Not Detect); Influenza B Not Detected (Not Detect); Mycoplasma pneumoniae Not Detected (Not Detect); Parainfluenza Virus 1 Not Detected (Not Detect); Parainfluenza Virus 2 Not Detected (Not Detect); Parainfluenza Virus 3 Not Detected (Not Detect); Parainfluenza Virus 4 Not Detected (Not Detect); Respiratory Syncytial Virus Not Detected (Not Detect); SARS-CoV-2 Not Detected (Not Detect)
[2020-07-11 10:32] LABS: Hematocrit 36.4 % (35.3-44.9); Hemoglobin 11.2 g/dL (11.5-15.4); Mean Corpuscular HGB Conc 30.8 g/dL (31.6-35.5); Mean Corpuscular Hemoglobin 27.1 pg (28.0-33.3); Mean Corpuscular Volume 88.1 fL (83.0-100.0); Mean Platelet Volume 11.3 fL (9.4-12.4); Platelet Count 317 K/mcL (140-400); Red Blood Count 4.13 M/mcL (3.82-4.97); Red Cell Distribution Width 16.2 % (11.5-14.5); White Blood Count 9.1 K/mcL (4.3-11.1)
[2020-07-11 10:39] LABS: Heparin anti-factor XA UFH 0.33 IU/mL (0.30-0.70)
[2020-07-11 10:40] LABS: INR 1.1; Prothrombin Time 13.1 Seconds (9.4-12.1)
[2020-07-11 10:47] LABS: Magnesium 2.2 mg/dL (1.6-2.6); Phosphorous 2.9 mg/dL (2.7-4.5)
[2020-07-11] MEDS ORDERED: Loratadine 10 MG TABLET PO PRN (11:01)
[2020-07-11] MEDS: Insulin LISPRO 300 UNITS/3 ML VIAL SUBQ SCH ×4 (12:53→20:13)
[2020-07-11] MEDS: MethylPREDNISolone 40 MG/ML VIAL IVP SCH ×2 (12:55→17:17)
[2020-07-11] MEDS ORDERED: Albuterol 2.5 MG/3 ML NEBULIZER IH PRN (13:28)
[2020-07-11] MEDS: Azithromycin 500 MG in D5% in Water 250 ML IVPB SCH (13:43)
[2020-07-11] MEDS ORDERED: *HR* FentaNYL (PF) 100 MCG/2 ML VIAL IVP ONE (14:13)
[2020-07-11] MEDS: Ipratropium/Albuterol Neb 3 ML IH SCH ×2 (15:42→22:04)
[2020-07-11] MEDS: Topiramate 100 MG TABLET PO SCH (20:13)
[2020-07-11] MEDS: QUEtiapine Fumarate 300 MG TABLET PO SCH (20:13)
[2020-07-11] MEDS: Melatonin 3 MG TABLET PO PRN (21:05)
[2020-07-11] MEDS: Budesonide/Formoterol 160/4.5 1 PUFF INH IH SCH (22:04)
[2020-07-11] MEDS: Pregabalin 75 MG CAPSULE PO SCH (22:17)
[2020-07-12] MEDS: Heparin 25,000UNIT/250ML 1/2NS 25,000 UNIT/250 ML IV.SOLN IVC SCH ×2 (00:02→14:56)
[2020-07-12] MEDS: MethylPREDNISolone 40 MG/ML VIAL IVP SCH ×5 (00:03→23:14)
[2020-07-12 01:50] LABS: Basophils % 0.2 %; Hematocrit 35.2 % (35.3-44.9); Hemoglobin 10.9 g/dL (11.5-15.4); Immature Granulocytes % 2.3 % (0-4); Lymphocytes # 0.7 K/mcL (0.6-4.6); Lymphocytes % 7.4 %; Mean Corpuscular Volume 87.1 fL (83.0-100.0); Monocytes # 0.2 K/mcL (0.0-1.3); Monocytes % 2.2 %; Platelet Count 197 K/mcL (140-400); Red Blood Count 4.04 M/mcL (3.82-4.97); Red Cell Distribution Width 16.1 % (11.5-14.5); Segmented Neutrophils % 87.9 %; White Blood Count 9.6 K/mcL (4.3-11.1)
[2020-07-12 01:51] LABS: Neutrophils # 8.4 K/mcL (1.6-8.9)
[2020-07-12 01:52] LABS: BUN/Creatinine Ratio 20 (6-26); Blood Urea Nitrogen 17 mg/dL (6-20); Calcium 8.6 mg/dL (8.6-10.3); Carbon Dioxide 23 mEq/L (23-29); Chloride 106 mEq/L (98-107); Glucose 290 mg/dL (70-105); Osmolality,Calculated 298 (280-300); Potassium 4.3 mEq/L (3.5-5.1); Sodium 138 mEq/L (136-145); eGFR For African Americans > 60 (> 60); eGFR For Non-African Americans > 60 (> 60)
[2020-07-12 02:13] LABS: Anisocytosis 1+ (Not Present); Platelet Estimate Normal (Normal); Poikilocytosis 1+ (Not Present); Reactive Lymphocytes Present (Not Present)
[2020-07-12] MEDS: Ipratropium/Albuterol Neb 3 ML IH SCH ×4 (03:54→21:56)
[2020-07-12] MEDS ORDERED: lisinopriL 20 MG TABLET PO SCH (09:00)
[2020-07-12] MEDS ORDERED: Furosemide 20 MG TABLET PO SCH (09:00)
[2020-07-12] MEDS: Furosemide 40 MG/4 ML VIAL IVP SCH (09:19)
[2020-07-12] MEDS: Famotidine 20 MG TABLET PO SCH (09:20)
[2020-07-12] MEDS: FLUoxetine 20 MG CAPSULE PO SCH (09:20)
[2020-07-12] MEDS: Metoprolol XL (24 HR) Succ 25 MG TAB.ER.24H PO SCH (09:20)
[2020-07-12] MEDS: Pregabalin 75 MG CAPSULE PO SCH ×2 (09:21→19:42)
[2020-07-12] MEDS: Isosorbide MONOnitrate (24 HR) 30 MG TAB.ER.24H PO SCH (09:21)
[2020-07-12] MEDS: Insulin LISPRO 300 UNITS/3 ML VIAL SUBQ SCH ×4 (09:22→19:42)
[2020-07-12] MEDS: Topiramate 25 MG TABLET PO SCH (09:25)
[2020-07-12] MEDS: Budesonide/Formoterol 160/4.5 1 PUFF INH IH SCH ×2 (10:40→21:56)
[2020-07-12] MEDS ORDERED: *HR* Rivaroxaban 10 MG TABLET PO SCH (11:15)
[2020-07-12] MEDS: Azithromycin 500 MG in D5% in Water 250 ML IVPB SCH (11:38)
[2020-07-12] MEDS: *HR* Enoxaparin 150 MG/ML SYRINGE SQ SCH (16:57)
[2020-07-12] MEDS: Aspirin Enteric Coated 81 MG Tablet PO SCH (19:41)
[2020-07-12] MEDS: QUEtiapine Fumarate 300 MG TABLET PO SCH (19:42)
[2020-07-12] MEDS: Topiramate 100 MG TABLET PO SCH (19:42)
[2020-07-12] MEDS: Melatonin 3 MG TABLET PO PRN (22:21)
[2020-07-12] MEDS: Acetaminophen 325 MG TABLET PO PRN (23:22)
[2020-07-13] MEDS: Ipratropium/Albuterol Neb 3 ML IH SCH ×4 (03:15→22:08)
[2020-07-13] MEDS: *HR* Enoxaparin 150 MG/ML SYRINGE SQ SCH ×2 (05:29→16:55)
[2020-07-13] MEDS: MethylPREDNISolone 40 MG/ML VIAL IVP SCH ×3 (05:31→16:54)
[2020-07-13] MEDS: Metoprolol XL (24 HR) Succ 25 MG TAB.ER.24H PO SCH (08:37)
[2020-07-13] MEDS: Isosorbide MONOnitrate (24 HR) 30 MG TAB.ER.24H PO SCH (08:37)
[2020-07-13] MEDS: Topiramate 25 MG TABLET PO SCH (08:37)
[2020-07-13] MEDS: Furosemide 40 MG/4 ML VIAL IVP SCH (08:37)
[2020-07-13] MEDS: FLUoxetine 20 MG CAPSULE PO SCH (08:37)
[2020-07-13] MEDS: Pregabalin 75 MG CAPSULE PO SCH ×2 (08:37→22:05)
[2020-07-13] MEDS: Famotidine 20 MG TABLET PO SCH (08:38)
[2020-07-13] MEDS: Insulin LISPRO 300 UNITS/3 ML VIAL SUBQ SCH ×4 (08:38→22:06)
[2020-07-13] MEDS: Budesonide/Formoterol 160/4.5 1 PUFF INH IH SCH ×2 (10:49→22:08)
[2020-07-13] MEDS ORDERED: Insulin LISPRO 300 UNITS/3 ML VIAL SUBQ ONE ×2 (11:54→17:01)
[2020-07-13] MEDS: Azithromycin 500 MG in D5% in Water 250 ML IVPB SCH (12:09)
[2020-07-13] MEDS ORDERED: Insulin DETEMIR 100 UNIT/ML X5UNITS SUBQ SCH (21:00)
[2020-07-13] MEDS: Topiramate 100 MG TABLET PO SCH (22:05)
[2020-07-13] MEDS: QUEtiapine Fumarate 300 MG TABLET PO SCH (22:05)
[2020-07-13] MEDS: Aspirin Enteric Coated 81 MG Tablet PO SCH (22:05)
[2020-07-14] MEDS: Ipratropium/Albuterol Neb 3 ML IH SCH ×4 (03:19→22:31)
[2020-07-14] MEDS: *HR* Enoxaparin 150 MG/ML SYRINGE SQ SCH ×2 (04:16→16:53)
[2020-07-14] MEDS: MethylPREDNISolone 40 MG/ML VIAL IVP SCH ×3 (04:16→16:54)
[2020-07-14 04:48] LABS: Basophils % 0.1 %; Hematocrit 36.5 % (35.3-44.9); Hemoglobin 10.9 g/dL (11.5-15.4); Immature Granulocytes % 1.9 % (0-4); Lymphocytes # 0.7 K/mcL (0.6-4.6); Lymphocytes % 6.6 %; Mean Corpuscular HGB Conc 29.9 g/dL (31.6-35.5); Mean Corpuscular Volume 90.3 fL (83.0-100.0); Mean Platelet Volume 11.3 fL (9.4-12.4); Monocytes # 0.3 K/mcL (0.0-1.3); Monocytes % 3.1 %; Neutrophils # 8.7 K/mcL (1.6-8.9); Platelet Count 271 K/mcL (140-400); Red Blood Count 4.04 M/mcL (3.82-4.97); Red Cell Distribution Width 16.2 % (11.5-14.5); Segmented Neutrophils % 88.3 %; White Blood Count 9.8 K/mcL (4.3-11.1)
[2020-07-14 05:07] LABS: Calcium 8.7 mg/dL (8.6-10.3); Potassium 4.2 mEq/L (3.5-5.1)
[2020-07-14] MEDS: Famotidine 20 MG TABLET PO SCH (07:45)
[2020-07-14] MEDS: Pregabalin 75 MG CAPSULE PO SCH ×2 (07:46→21:00)
[2020-07-14] MEDS: Topiramate 25 MG TABLET PO SCH (07:46)
[2020-07-14] MEDS: Isosorbide MONOnitrate (24 HR) 30 MG TAB.ER.24H PO SCH (07:46)
[2020-07-14] MEDS: Metoprolol XL (24 HR) Succ 25 MG TAB.ER.24H PO SCH (07:46)
[2020-07-14] MEDS: FLUoxetine 20 MG CAPSULE PO SCH (07:46)
[2020-07-14] MEDS: Furosemide 40 MG/4 ML VIAL IVP SCH (07:47)
[2020-07-14] MEDS: Insulin LISPRO 300 UNITS/3 ML VIAL SUBQ SCH ×4 (07:47→20:57)
[2020-07-14] MEDS: Budesonide/Formoterol 160/4.5 1 PUFF INH IH SCH ×2 (10:20→22:31)
[2020-07-14] MEDS ORDERED: Insulin LISPRO 300 UNITS/3 ML VIAL SUBQ SCH ×3 (11:30→21:00)
[2020-07-14] MEDS: Azithromycin 500 MG in D5% in Water 250 ML IVPB SCH (11:52)
[2020-07-14] MEDS ORDERED: Insulin LISPRO 300 UNITS/3 ML VIAL SUBQ ONE (12:19)
[2020-07-14] MEDS ORDERED: Insulin DETEMIR 100 UNIT/ML X5UNITS SUBQ SCH ×2 (12:30→14:00)
[2020-07-14] MEDS: Aspirin Enteric Coated 81 MG Tablet PO SCH (20:56)
[2020-07-14] MEDS: QUEtiapine Fumarate 300 MG TABLET PO SCH (20:56)
[2020-07-14] MEDS: Insulin DETEMIR 100 UNIT/ML X5UNITS SUBQ SCH (20:57)
[2020-07-14] MEDS: Melatonin 3 MG TABLET PO PRN (21:02)
[2020-07-14] MEDS: Acetaminophen 325 MG TABLET PO PRN (21:02)
[2020-07-14] MEDS: Topiramate 100 MG TABLET PO SCH (21:08)
[2020-07-15 01:44] LABS: Basophils % 0.3 %; Hemoglobin 11.3 g/dL (11.5-15.4); Immature Granulocytes % 2.7 % (0-4); Lymphocytes # 0.7 K/mcL (0.6-4.6); Lymphocytes % 7.6 %; Mean Corpuscular HGB Conc 30.5 g/dL (31.6-35.5); Mean Corpuscular Hemoglobin 27.6 pg (28.0-33.3); Mean Corpuscular Volume 90.2 fL (83.0-100.0); Mean Platelet Volume 11.8 fL (9.4-12.4); Monocytes # 0.4 K/mcL (0.0-1.3); Monocytes % 4.7 %; Neutrophils # 7.7 K/mcL (1.6-8.9); Platelet Count 275 K/mcL (140-400); Red Cell Distribution Width 16.1 % (11.5-14.5); Segmented Neutrophils % 84.7 %; White Blood Count 9.1 K/mcL (4.3-11.1)
[2020-07-15 02:14] LABS: Calcium 8.5 mg/dL (8.6-10.3); Potassium 4.7 mEq/L (3.5-5.1)
[2020-07-15] MEDS: Ipratropium/Albuterol Neb 3 ML IH SCH ×4 (04:23→22:55)
[2020-07-15] MEDS: *HR* Enoxaparin 150 MG/ML SYRINGE SQ SCH ×2 (06:48→17:19)
[2020-07-15] MEDS: MethylPREDNISolone 40 MG/ML VIAL IVP SCH (06:49)
[2020-07-15] MEDS: Insulin LISPRO 300 UNITS/3 ML VIAL SUBQ SCH ×7 (07:57→20:23)
[2020-07-15] MEDS: Metoprolol XL (24 HR) Succ 25 MG TAB.ER.24H PO SCH (07:58)
[2020-07-15] MEDS: Topiramate 25 MG TABLET PO SCH (07:58)
[2020-07-15] MEDS: Famotidine 20 MG TABLET PO SCH (07:58)
[2020-07-15] MEDS: Insulin DETEMIR 100 UNIT/ML X5UNITS SUBQ SCH ×2 (07:58→20:23)
[2020-07-15] MEDS: Pregabalin 75 MG CAPSULE PO SCH (07:58)
[2020-07-15] MEDS: Isosorbide MONOnitrate (24 HR) 30 MG TAB.ER.24H PO SCH (07:58)
[2020-07-15] MEDS: FLUoxetine 20 MG CAPSULE PO SCH (07:58)
[2020-07-15] MEDS ORDERED: predniSONE 20 MG TABLET PO SCH (09:00)
[2020-07-15] MEDS: Budesonide/Formoterol 160/4.5 1 PUFF INH IH SCH ×2 (10:05→22:55)
[2020-07-15 11:08] LABS: Creatinine,Urine 68 mg/dL; Sodium, Urine 58.4 mEq/L
[2020-07-15] MEDS ORDERED: Azithromycin 250 MG TABLET PO SCH (12:00)
[2020-07-15] MEDS: Acetaminophen 325 MG TABLET PO PRN (13:58)
[2020-07-15] MEDS: Aspirin Enteric Coated 81 MG Tablet PO SCH (20:24)
[2020-07-15] MEDS: Topiramate 100 MG TABLET PO SCH (20:24)
[2020-07-15] MEDS: Melatonin 3 MG TABLET PO PRN (20:24)
[2020-07-15] MEDS: QUEtiapine Fumarate 300 MG TABLET PO SCH (20:24)
[2020-07-16 02:42] LABS: Hematocrit 37.9 % (35.3-44.9); Hemoglobin 11.8 g/dL (11.5-15.4); Mean Corpuscular HGB Conc 31.1 g/dL (31.6-35.5); Mean Corpuscular Hemoglobin 27.1 pg (28.0-33.3); Mean Corpuscular Volume 86.9 fL (83.0-100.0); Mean Platelet Volume 11.4 fL (9.4-12.4); Platelet Count 257 K/mcL (140-400); Red Blood Count 4.36 M/mcL (3.82-4.97); Red Cell Distribution Width 15.9 % (11.5-14.5); White Blood Count 10.2 K/mcL (4.3-11.1)
[2020-07-16 02:47] LABS: Bilirubin,Urine Negative (Negative); Blood,Urine Moderate (Negative); Clarity,Urine Clear (Clear); Color,Urine Light-Yellow (Yellow); Glucose,Urine (UA) >=1000 mg/dL (Normal); Ketones,Urine Negative (Negative); Leukocyte Esterase,Urine Negative (Negative); Mucus,Urine Few per lpf (None-Few); Nitrite,Urine Negative (Negative); PH,Urine 6.5 pH Units (5.0-8.0); Protein,Urine Trace mg/dL (Neg-Trace); RBC,Urine TNTC per hpf (0-3); Specific Gravity,Urine 1.028 (1.010-1.025); Squamous Epithelial Cell,Urine Few per hpf (None-Few); Urobilinogen,Urine Normal (Normal)
[2020-07-16 02:51] LABS: BUN/Creatinine Ratio 44 (6-26); Blood Urea Nitrogen 43 mg/dL (6-20); Calcium 8.7 mg/dL (8.6-10.3); Carbon Dioxide 20 mEq/L (23-29); Chloride 108 mEq/L (98-107); Glucose 310 mg/dL (70-105); Osmolality,Calculated 305 (280-300); Potassium 4.8 mEq/L (3.5-5.1); Sodium 136 mEq/L (136-145); eGFR For African Americans > 60 (> 60); eGFR For Non-African Americans > 60 (> 60)
[2020-07-16 03:11] LABS: Lymphocytes # 1.6 K/mcL (0.6-4.6); Monocytes # 0.4 K/mcL (0.0-1.3); Platelet Estimate Normal (Normal); Reactive Lymphocytes Present (Not Present)
[2020-07-16] MEDS: Ipratropium/Albuterol Neb 3 ML IH SCH ×3 (04:04→15:35)
[2020-07-16] MEDS: *HR* Enoxaparin 150 MG/ML SYRINGE SQ SCH ×2 (06:48→17:11)
[2020-07-16] MEDS: Famotidine 20 MG TABLET PO SCH (07:20)
[2020-07-16] MEDS: Isosorbide MONOnitrate (24 HR) 30 MG TAB.ER.24H PO SCH (07:20)
[2020-07-16] MEDS: FLUoxetine 20 MG CAPSULE PO SCH (07:20)
[2020-07-16] MEDS: Insulin DETEMIR 100 UNIT/ML X5UNITS SUBQ SCH (07:20)
[2020-07-16] MEDS: Topiramate 25 MG TABLET PO SCH (07:20)
[2020-07-16] MEDS: Insulin LISPRO 300 UNITS/3 ML VIAL SUBQ SCH ×4 (07:21→12:16)
[2020-07-16] MEDS: Metoprolol XL (24 HR) Succ 25 MG TAB.ER.24H PO SCH (07:22)
[2020-07-16] MEDS: Budesonide/Formoterol 160/4.5 1 PUFF INH IH SCH (09:30)
[2020-07-16 14:54] VITALS: BP 103/57
== END 2020-07-16 17:40 | disposition home health service (06) | DRG 291 ==
LOC: 2NENU 07:52 → EMEROOARM 07:52 → SUATTDRO 12:00 → 2NENU 12:57
PROVIDERS: ADMIT General Practice; ATTEND Student in an Organized Health Care Education/Training Program

== ENCOUNTER 2020-11-07 12:22 | Inpatient (IN) ==
[2020-11-07] MEDS ORDERED: Gadolinium Contrast Agent (WT Based) IV PRN (12:40)
[2020-11-07 15:13] LABS: Basophils # 0.1 K/mcL (0.0-0.2); Basophils % 0.6 %; Eosinophils # 0.2 K/mcL (0.0-0.6); Eosinophils % 2.5 %; Hematocrit 35.8 % (35.3-44.9); Hemoglobin 10.7 g/dL (11.5-15.4); Immature Granulocytes % 0.6 % (0-4); Lymphocytes # 1.7 K/mcL (0.6-4.6); Lymphocytes % 19.8 %; Mean Corpuscular HGB Conc 29.9 g/dL (31.6-35.5); Mean Corpuscular Volume 86.9 fL (83.0-100.0); Mean Platelet Volume 10.1 fL (9.4-12.4); Monocytes # 0.5 K/mcL (0.0-1.3); Monocytes % 5.2 %; Neutrophils # 6.3 K/mcL (1.6-8.9); Platelet Count 321 K/mcL (140-400); Red Blood Count 4.12 M/mcL (3.82-4.97); Red Cell Distribution Width 15.7 % (11.5-14.5); Segmented Neutrophils % 71.3 %; White Blood Count 8.8 K/mcL (4.3-11.1)
[2020-11-07 15:20] LABS: INR 1.6; Prothrombin Time 18.8 Seconds (9.4-12.1)
[2020-11-07 15:23] LABS: Activated Partial Thrombo Time 39.8 Seconds (26.0-36.0)
[2020-11-07 15:39] LABS: BUN/Creatinine Ratio 14 (6-26); Blood Urea Nitrogen 12 mg/dL (6-20); Calcium 8.9 mg/dL (8.6-10.3); Carbon Dioxide 29 mEq/L (23-29); Chloride 105 mEq/L (98-107); Glucose 88 mg/dL (70-105); Osmolality,Calculated 289 (280-300); Potassium 3.7 mEq/L (3.5-5.1); Sodium 140 mEq/L (136-145); Troponin I < 0.03 ng/mL (< 0.04); eGFR For African Americans > 60 (> 60); eGFR For Non-African Americans > 60 (> 60)
[2020-11-07] MEDS ORDERED: GADOBUTROL 30 MMOL/30 ML VIAL IVP ONE (15:59)
[2020-11-07] MEDS ORDERED: 0.9 % Sodium Chloride 1,000 ML IVC ONE (17:30)
[2020-11-07] MEDS ORDERED: *HR* FentaNYL (PF) 100 MCG/2 ML VIAL IVP ONE (17:47)
[2020-11-07 18:16] LABS: Bacteria,Urine Few per hpf (None-Few); Bilirubin,Urine Negative (Negative); Blood,Urine Negative (Negative); Clarity,Urine Clear (Clear); Color,Urine Light-Yellow (Yellow); Glucose,Urine (UA) Normal (Normal); Ketones,Urine Negative (Negative); Leukocyte Esterase,Urine Small (Negative); Nitrite,Urine Negative (Negative); PH,Urine 6.5 pH Units (5.0-8.0); Protein,Urine Negative (Neg-Trace); RBC,Urine 0-3 per hpf (0-3); Specific Gravity,Urine 1.016 (1.010-1.025); Squamous Epithelial Cell,Urine Moderate per hpf (None-Few); Urobilinogen,Urine Normal (Normal)
[2020-11-07] MEDS ORDERED: Acetaminophen 325 MG TABLET PO PRN (19:49)
[2020-11-07] MEDS ORDERED: Naloxone 0.4 MG/ML INJ IVP PRN (19:49)
[2020-11-07] MEDS ORDERED: Dextrose Gel 15 GM/37.5 ML TUBE PO PRN ×2 (19:55)
[2020-11-07] MEDS ORDERED: D5% in Water 1,000 ML IVC PRN (19:55)
[2020-11-07] MEDS ORDERED: *HR* Dextrose 50 % in Water (Vial) 50 ML VIAL IVP PRN (19:55)
[2020-11-07] MEDS ORDERED: Furosemide 40 MG TABLET PO PRN (19:56)
[2020-11-07] MEDS ORDERED: Ipratropium/Albuterol Neb 3 ML IH PRN (19:56)
[2020-11-07] MEDS: Pregabalin 75 MG CAPSULE PO SCH (22:33)
[2020-11-07] MEDS: Insulin LISPRO 300 UNITS/3 ML VIAL SUBQ SCH (22:34)
[2020-11-07] MEDS: Aspirin Enteric Coated 81 MG Tablet PO SCH (22:34)
[2020-11-07] MEDS: tiZANidine 4 MG TABLET PO SCH (22:34)
[2020-11-07 23:01] LABS: Influenza A PCR Negative (Negative); Influenza B PCR Negative (Negative); Resp. Syncytial Virus PCR Negative (Negative); SARS-CoV-2 by PCR (In House) Negative (Negative)
[2020-11-07] MEDS: *HR* HYDROcodone/Acet 5/325 mg TABLET PO PRN (23:42)
[2020-11-07] MEDS: Melatonin 3 MG TABLET PO PRN (23:43)
[2020-11-08 05:43] LABS: Basophils # 0.1 K/mcL (0.0-0.2); Basophils % 0.6 %; Eosinophils # 0.4 K/mcL (0.0-0.6); Eosinophils % 4.5 %; Hematocrit 34.4 % (35.3-44.9); Hemoglobin 10.2 g/dL (11.5-15.4); Immature Granulocytes % 0.5 % (0-4); Lymphocytes # 1.7 K/mcL (0.6-4.6); Lymphocytes % 22.1 %; Mean Corpuscular HGB Conc 29.7 g/dL (31.6-35.5); Mean Corpuscular Volume 87.8 fL (83.0-100.0); Mean Platelet Volume 9.8 fL (9.4-12.4); Monocytes # 0.6 K/mcL (0.0-1.3); Monocytes % 7.3 %; Platelet Count 294 K/mcL (140-400); Red Blood Count 3.92 M/mcL (3.82-4.97); Red Cell Distribution Width 15.8 % (11.5-14.5); White Blood Count 7.7 K/mcL (4.3-11.1)
[2020-11-08 06:11] LABS: BUN/Creatinine Ratio 13 (6-26); Blood Urea Nitrogen 11 mg/dL (6-20); Calcium 8.3 mg/dL (8.6-10.3); Carbon Dioxide 28 mEq/L (23-29); Chloride 107 mEq/L (98-107); Glucose 139 mg/dL (70-105); Osmolality,Calculated 290 (280-300); Potassium 3.9 mEq/L (3.5-5.1); Sodium 139 mEq/L (136-145); eGFR For African Americans > 60 (> 60); eGFR For Non-African Americans > 60 (> 60)
[2020-11-08] MEDS: Insulin LISPRO 300 UNITS/3 ML VIAL SUBQ SCH ×4 (08:09→20:13)
[2020-11-08] MEDS: Pregabalin 75 MG CAPSULE PO SCH ×2 (08:41→20:12)
[2020-11-08] MEDS: Isosorbide MONOnitrate (24 HR) 30 MG TAB.ER.24H PO SCH (08:42)
[2020-11-08] MEDS: Metoprolol XL (24 HR) Succ 25 MG TAB.ER.24H PO SCH (08:42)
[2020-11-08] MEDS: *HR* Rivaroxaban 10 MG TABLET PO SCH (08:42)
[2020-11-08] MEDS: Famotidine 20 MG TABLET PO SCH (08:42)
[2020-11-08] MEDS: FLUoxetine 20 MG CAPSULE PO SCH (08:42)
[2020-11-08] MEDS: ARIPiprazole 5 MG TABLET PO SCH (08:42)
[2020-11-08] MEDS ORDERED: NON-FORMULARY MEDICATION 1 EACH EACH (Fluoxetine Hcl [Fluoxetine Hcl] 40 MG Capsule) PO SCH (09:00)
[2020-11-08] MEDS: Budesonide/Formoterol 160/4.5 1 PUFF INH IH SCH ×2 (09:20→22:06)
[2020-11-08] MEDS: *HR* HYDROcodone/Acet 5/325 mg TABLET PO PRN ×2 (14:01→20:12)
[2020-11-08] MEDS: Ondansetron 4 MG/2 ML VIAL IVP PRN (14:02)
[2020-11-08] MEDS: tiZANidine 4 MG TABLET PO SCH (20:12)
[2020-11-08] MEDS: Aspirin Enteric Coated 81 MG Tablet PO SCH (20:12)
[2020-11-08] MEDS: Melatonin 3 MG TABLET PO PRN (23:15)
[2020-11-09] MEDS: *HR* HYDROcodone/Acet 5/325 mg TABLET PO PRN ×3 (03:37→14:44)
[2020-11-09] MEDS: Ondansetron 4 MG/2 ML VIAL IVP PRN (03:40)
[2020-11-09 06:16] LABS: Hematocrit 35.5 % (35.3-44.9); Hemoglobin 10.5 g/dL (11.5-15.4); Mean Corpuscular HGB Conc 29.6 g/dL (31.6-35.5); Mean Corpuscular Hemoglobin 25.9 pg (28.0-33.3); Mean Corpuscular Volume 87.7 fL (83.0-100.0); Mean Platelet Volume 10.3 fL (9.4-12.4); Platelet Count 296 K/mcL (140-400); Red Blood Count 4.05 M/mcL (3.82-4.97); Red Cell Distribution Width 15.9 % (11.5-14.5); White Blood Count 8.6 K/mcL (4.3-11.1)
[2020-11-09 06:23] LABS: Estimated Average Glucose 126 mg/dl
[2020-11-09 06:47] LABS: Thyroid Stimulating Hormone 3.068 mcIU/mL (0.340-5.600)
[2020-11-09 06:51] LABS: BUN/Creatinine Ratio 14 (6-26); Blood Urea Nitrogen 15 mg/dL (6-20); Calcium 8.1 mg/dL (8.6-10.3); Carbon Dioxide 24 mEq/L (23-29); Chloride 105 mEq/L (98-107); Glucose 117 mg/dL (70-105); Magnesium 2.1 mg/dL (1.6-2.6); Osmolality,Calculated 286 (280-300); Phosphorous 4.2 mg/dL (2.7-4.5); Potassium 4.7 mEq/L (3.5-5.1); Sodium 137 mEq/L (136-145); eGFR For African Americans > 60 (> 60); eGFR For Non-African Americans 55 (> 60)
[2020-11-09 06:57] LABS: Folate 6.1 ng/mL (3.0-16.0)
[2020-11-09] MEDS ORDERED: Iron Sucrose Complex 400 MG in 0.9 % Sodium Chloride 250 ML IVPB ONE (08:18)
[2020-11-09] MEDS ORDERED: Calcium Gluconate 1gm/50mL 1 GM/50 ML BAG IVPB SCH (08:30)
[2020-11-09] MEDS: Insulin LISPRO 300 UNITS/3 ML VIAL SUBQ SCH ×4 (09:00→21:58)
[2020-11-09] MEDS: Budesonide/Formoterol 160/4.5 1 PUFF INH IH SCH ×2 (09:22→22:17)
[2020-11-09] MEDS: FLUoxetine 20 MG CAPSULE PO SCH (09:28)
[2020-11-09] MEDS: Famotidine 20 MG TABLET PO SCH (09:29)
[2020-11-09] MEDS: *HR* Rivaroxaban 10 MG TABLET PO SCH (09:29)
[2020-11-09] MEDS: ARIPiprazole 5 MG TABLET PO SCH (09:29)
[2020-11-09] MEDS: Pregabalin 75 MG CAPSULE PO SCH ×2 (09:29→22:07)
[2020-11-09] MEDS: Multivit/Ca/Min/Fe/FA 1 TAB TABLET PO SCH (09:29)
[2020-11-09] MEDS: Metoprolol XL (24 HR) Succ 25 MG TAB.ER.24H PO SCH (09:29)
[2020-11-09] MEDS: Isosorbide MONOnitrate (24 HR) 30 MG TAB.ER.24H PO SCH (11:45)
[2020-11-09] MEDS ORDERED: *HR* HYDROcodone/Acet 5/325 mg TABLET PO PRN (15:42)
[2020-11-09] MEDS ORDERED: Ipratropium/Albuterol Neb 3 ML IH SCH (15:45)
[2020-11-09] MEDS: *HR* OxyCODONE Immed Rel 5 MG TABLET PO PRN (18:51)
[2020-11-09] MEDS: Aspirin Enteric Coated 81 MG Tablet PO SCH (22:07)
[2020-11-09] MEDS: tiZANidine 4 MG TABLET PO SCH (22:07)
[2020-11-09] MEDS: Sennosides/Docusate Sodium TABLET PO SCH (22:07)
[2020-11-09] MEDS: Ipratropium/Albuterol Neb 3 ML IH SCH (22:15)
[2020-11-09] MEDS: Melatonin 3 MG TABLET PO PRN (23:33)
[2020-11-10] MEDS: *HR* OxyCODONE Immed Rel 5 MG TABLET PO PRN ×3 (02:09→15:15)
[2020-11-10] MEDS: Ondansetron ODT 4 MG TAB.RAPDIS SL PRN ×2 (02:31→15:15)
[2020-11-10] MEDS: Ipratropium/Albuterol Neb 3 ML IH SCH ×4 (04:48→22:56)
[2020-11-10 07:48] LABS: Hematocrit 33.7 % (35.3-44.9); Hemoglobin 10.5 g/dL (11.5-15.4); Mean Corpuscular HGB Conc 31.2 g/dL (31.6-35.5); Mean Corpuscular Volume 86.6 fL (83.0-100.0); Platelet Count 279 K/mcL (140-400); Red Blood Count 3.89 M/mcL (3.82-4.97)
[2020-11-10] MEDS: ARIPiprazole 5 MG TABLET PO SCH (09:15)
[2020-11-10] MEDS: Sennosides/Docusate Sodium TABLET PO SCH (09:15)
[2020-11-10] MEDS: Pregabalin 75 MG CAPSULE PO SCH (09:15)
[2020-11-10] MEDS: FLUoxetine 20 MG CAPSULE PO SCH (09:15)
[2020-11-10] MEDS: Famotidine 20 MG TABLET PO SCH (09:15)
[2020-11-10] MEDS: Insulin LISPRO 300 UNITS/3 ML VIAL SUBQ SCH ×3 (09:16→17:33)
[2020-11-10] MEDS: Isosorbide MONOnitrate (24 HR) 30 MG TAB.ER.24H PO SCH (09:16)
[2020-11-10] MEDS: Multivit/Ca/Min/Fe/FA 1 TAB TABLET PO SCH (09:16)
[2020-11-10] MEDS: Metoprolol XL (24 HR) Succ 25 MG TAB.ER.24H PO SCH (09:16)
[2020-11-10 09:57] LABS: BUN/Creatinine Ratio 17 (6-26); Blood Urea Nitrogen 17 mg/dL (6-20); Calcium 8.6 mg/dL (8.6-10.3); Carbon Dioxide 19 mEq/L (23-29); Chloride 103 mEq/L (98-107); Glucose 101 mg/dL (70-105); Magnesium 2.1 mg/dL (1.6-2.6); Osmolality,Calculated 286 (280-300); Phosphorous 4.3 mg/dL (2.7-4.5); Potassium 4.2 mEq/L (3.5-5.1); Sodium 137 mEq/L (136-145); eGFR For African Americans > 60 (> 60); eGFR For Non-African Americans 56 (> 60)
[2020-11-10] MEDS: Budesonide/Formoterol 160/4.5 1 PUFF INH IH SCH ×2 (10:51→22:56)
[2020-11-10] MEDS ORDERED: Polymyxin B Sulfate 500,000 UNIT, Sodium Chloride IRRigation 1,000 ML IR ONE (13:30)
[2020-11-10] MEDS ORDERED: *HR* FentaNYL (PF) 100 MCG/2 ML VIAL ONE (14:47)
[2020-11-10] MEDS ORDERED: *HR* Propofol 200 MG/20 ML VIAL IVP ONE (14:48)
[2020-11-10] MEDS ORDERED: *HR* Midazolam HCl 2 MG/2 ML VIAL ONE (14:48)
[2020-11-10] MEDS ORDERED: Lidocaine -MPF 2% 2 ML VIAL ONE (14:49)
[2020-11-10] MEDS ORDERED: *HR* Rocuronium Bromide 50 MG/5 ML VIAL ONE (14:50)
[2020-11-10] MEDS ORDERED: *HR* Succinylcholine 200 MG/10 ML VIAL IVP ONE (14:50)
[2020-11-10] MEDS ORDERED: Ondansetron 4 MG/2 ML VIAL ONE (14:52)
[2020-11-10] MEDS ORDERED: *HR* Remifentanil 1 MG VIAL IVP ONE ×3 (16:15→19:24)
[2020-11-10] MEDS ORDERED: Ondansetron 4 MG/2 ML VIAL IVP PRN ×2 (16:34→22:18)
[2020-11-10] MEDS ORDERED: *HR* HYDROmorphone PF 0.5 MG/0.5 ML SYRINGE IVP PRN (16:34)
[2020-11-10] MEDS ORDERED: Famotidine 20 MG/2 ML VIAL ONE (16:45)
[2020-11-10] MEDS ORDERED: Clindamycin 900 MG/50 ML 900 MG/50 ML IV.SOLN IVPB ONE (17:43)
[2020-11-10] MEDS ORDERED: EPHEDrine 50 MG/ML VIAL ONE (18:08)
[2020-11-10] MEDS ORDERED: Albumin Human 5% 12.5 GM/250 ML IV.SOLN ONE ×2 (18:20→18:21)
[2020-11-10] MEDS ORDERED: *HR* Vasopressin 20 UNIT/ML VIAL ONE (18:23)
[2020-11-10] MEDS ORDERED: Acetaminophen IV 1,000 MG/100 ML BAG IVPB ONE (19:49)
[2020-11-10] MEDS ORDERED: Naloxone 0.4 MG/ML INJ IVP PRN (22:18)
[2020-11-10] MEDS ORDERED: Ringers Solution, Lactated 1,000 ML IVC SCH (22:18)
[2020-11-10] MEDS ORDERED: Acetaminophen 325 MG TABLET PO PRN (22:18)
[2020-11-10] MEDS: *HR* HYDROcodone/Acet 5/325 mg TABLET PO PRN (22:51)
[2020-11-11] MEDS: Clindamycin 900 MG/50 ML 900 MG/50 ML IV.SOLN IVPB SCH ×2 (03:18→10:27)
[2020-11-11] MEDS: *HR* HYDROcodone/Acet 5/325 mg TABLET PO PRN ×3 (05:37→21:13)
[2020-11-11 06:33] LABS: Hematocrit 34.4 % (35.3-44.9); Hemoglobin 10.4 g/dL (11.5-15.4); Mean Corpuscular HGB Conc 30.2 g/dL (31.6-35.5); Mean Corpuscular Hemoglobin 26.4 pg (28.0-33.3); Mean Corpuscular Volume 87.3 fL (83.0-100.0); Mean Platelet Volume 10.4 fL (9.4-12.4); Platelet Count 268 K/mcL (140-400); Red Blood Count 3.94 M/mcL (3.82-4.97); Red Cell Distribution Width 15.9 % (11.5-14.5); White Blood Count 11.4 K/mcL (4.3-11.1)
[2020-11-11] MEDS: diazePAM 10 MG TABLET PO PRN ×2 (10:23→18:50)
[2020-11-11] MEDS: *HR* Glimepiride 2 MG TABLET PO SCH (10:26)
[2020-11-11] MEDS: *HR* Rivaroxaban 10 MG TABLET PO SCH (10:26)
[2020-11-11 13:59] LABS: BUN/Creatinine Ratio 16 (6-26); Blood Urea Nitrogen 15 mg/dL (6-20); Carbon Dioxide 26 mEq/L (23-29); Chloride 103 mEq/L (98-107); Glucose 153 mg/dL (70-105); Magnesium 2.2 mg/dL (1.6-2.6); Osmolality,Calculated 292 (280-300); Phosphorous 3.2 mg/dL (2.7-4.5); Potassium 4.3 mEq/L (3.5-5.1); Sodium 139 mEq/L (136-145); eGFR For African Americans > 60 (> 60); eGFR For Non-African Americans > 60 (> 60)
[2020-11-11] MEDS ORDERED: Melatonin 3 MG TABLET PO ONE (23:41)
[2020-11-12] MEDS: *HR* HYDROcodone/Acet 5/325 mg TABLET PO PRN (04:37)
[2020-11-12] MEDS: *HR* Glimepiride 2 MG TABLET PO SCH (08:35)
[2020-11-12] MEDS: *HR* Rivaroxaban 10 MG TABLET PO SCH (08:35)
[2020-11-12] MEDS ORDERED: *HR* OxyCODONE/APAP 5/325 TABLET PO PRN (09:51)
[2020-11-12 15:05] VITALS: BP 155/71; PULSE 81; TEMP 98.1; O2SAT 96
[2020-11-13] MEDS ORDERED: (Semaglutide [Ozempic] 1 MG/0.75 ML Pen.Injctr) SQ SCH (19:56)
== END 2020-11-12 15:16 | disposition home health service (06) | DRG 472 ==
LOC: EMEROOARM 12:22 → 3NENU 12:22 → SUATTDRO 18:54 → 3NENU 21:03 → SUATTDRO 11-08 19:24
PROVIDERS: ADMIT Internal Medicine; ATTEND Pharmacist

== ENCOUNTER 2021-04-09 16:00 | Inpatient (IN) ==
[2021-04-09 17:33] LABS: Basophils % 0.5 %; Eosinophils # 0.4 K/mcL (0.0-0.6); Eosinophils % 6.1 %; Hematocrit 35.3 % (35.3-44.9); Hemoglobin 10.8 g/dL (11.5-15.4); Immature Granulocytes % 0.5 % (0-4); Lymphocytes # 0.9 K/mcL (0.6-4.6); Lymphocytes % 14.1 %; Mean Corpuscular HGB Conc 30.6 g/dL (31.6-35.5); Mean Corpuscular Hemoglobin 25.1 pg (28.0-33.3); Mean Corpuscular Volume 81.9 fL (83.0-100.0); Mean Platelet Volume 9.5 fL (9.4-12.4); Monocytes # 0.5 K/mcL (0.0-1.3); Monocytes % 7.8 %; Neutrophils # 4.7 K/mcL (1.6-8.9); Platelet Count 261 K/mcL (140-400); Red Blood Count 4.31 M/mcL (3.82-4.97); Red Cell Distribution Width 18.1 % (11.5-14.5); White Blood Count 6.6 K/mcL (4.3-11.1)
[2021-04-09 17:46] LABS: INR 1.4
[2021-04-09 17:49] LABS: Activated Partial Thrombo Time 40.4 Seconds (26.0-36.0)
[2021-04-09 17:59] LABS: Alanine Aminotransferase 18 Units/L (7-52); Albumin 3.4 g/dL (3.5-5.7); Alkaline Phosphatase 138 Units/L (34-104); Aspartate Amino Transferase 13 Units/L (13-39); BUN/Creatinine Ratio 16 (6-26); Bilirubin,Total 0.2 mg/dL (0.3-1.0); Blood Urea Nitrogen 15 mg/dL (6-20); Carbon Dioxide 31 mEq/L (23-29); Chloride 100 mEq/L (98-107); Globulin 3.4 g/dL (2.4-3.5); Glucose 149 mg/dL (70-105); Osmolality,Calculated 290 (280-300); Potassium 3.6 mEq/L (3.5-5.1); Sodium 138 mEq/L (136-145); Total Protein 6.8 g/dL (6.4-8.9); Troponin I < 0.03 ng/mL (< 0.04); eGFR For African Americans > 60 (> 60); eGFR For Non-African Americans > 60 (> 60)
[2021-04-09 18:37] LABS: Adenovirus Not Detected (Not Detect); Bordetella Pertussis Not Detected (Not Detect); Chlamydophila pneumoniae Not Detected (Not Detect); Coronavirus 229E Not Detected (Not Detect); Coronavirus HKU1 Not Detected (Not Detect); Coronavirus NL63 Not Detected (Not Detect); Coronavirus OC43 Not Detected (Not Detect); Human Metapneumovirus DETECTED (Not Detect); Human Rhinovirus/Enterovirus DETECTED (Not Detect); Influenza A Subtype 2009 H1 Not Detected (Not Detect); Influenza B Not Detected (Not Detect); Mycoplasma pneumoniae Not Detected (Not Detect); Parainfluenza Virus 1 Not Detected (Not Detect); Parainfluenza Virus 2 Not Detected (Not Detect); Parainfluenza Virus 3 Not Detected (Not Detect); Parainfluenza Virus 4 Not Detected (Not Detect); Respiratory Syncytial Virus Not Detected (Not Detect); SARS-CoV-2 Not Detected (Not Detect)
[2021-04-09] MEDS ORDERED: *HR* OxyCODONE/APAP 5/325 TABLET PO ONE (19:23)
[2021-04-09] MEDS ORDERED: *HR* HYDROcodone/Acet 5/325 mg TABLET PO ONE (19:48)
[2021-04-09] MEDS ORDERED: Naloxone 0.4 MG/ML INJ IVP PRN (19:50)
[2021-04-09] MEDS ORDERED: Clindamycin 600 MG/50 ML 600 MG/50 ML IV.SOLN IVPB ONE (19:55)
[2021-04-09] MEDS ORDERED: Vancomycin 1,000 MG in D5% in Water 250 ML IVPB ONE (19:55)
[2021-04-09 20:16] LABS: C-Reactive Protein 34 mg/L (Less than 10)
[2021-04-09] MEDS ORDERED: Dextrose Gel 15 GM/37.5 ML TUBE PO PRN ×2 (20:34)
[2021-04-09] MEDS ORDERED: *HR* Dextrose 50 % in Water (Syg) 50 ML SYRINGE IVP PRN (20:34)
[2021-04-09] MEDS ORDERED: D5% in Water 1,000 ML IVC PRN (20:34)
[2021-04-09] MEDS ORDERED: Acetaminophen 325 MG TABLET PO PRN (22:02)
[2021-04-09] MEDS: Ipratropium/Albuterol Neb 3 ML IH SCH (22:27)
[2021-04-09] MEDS: Melatonin 3 MG TABLET PO PRN (23:51)
[2021-04-09] MEDS: *HR* OxyCODONE Immed Rel 5 MG TABLET PO PRN (23:51)
[2021-04-09] MEDS: Aztreonam 1,000 MG in 0.9 % Sodium Chloride Mini Bag 100 ML IVPB SCH (23:57)
[2021-04-10] MEDS: Insulin LISPRO 300 UNITS/3 ML VIAL SUBQ SCH ×5 (00:51→21:16)
[2021-04-10] MEDS: Aspirin Enteric Coated 81 MG Tablet PO SCH ×2 (02:11→21:09)
[2021-04-10] MEDS: 0.9 % Sodium Chloride 1,000 ML IVC SCH ×2 (02:14→02:15)
[2021-04-10] MEDS: Ipratropium/Albuterol Neb 3 ML IH SCH ×4 (03:54→19:55)
[2021-04-10 05:13] LABS: Hematocrit 33.8 % (35.3-44.9); Hemoglobin 10.2 g/dL (11.5-15.4); Mean Corpuscular HGB Conc 30.2 g/dL (31.6-35.5); Mean Corpuscular Hemoglobin 24.6 pg (28.0-33.3); Mean Corpuscular Volume 81.4 fL (83.0-100.0); Platelet Count 263 K/mcL (140-400); Red Blood Count 4.15 M/mcL (3.82-4.97); Red Cell Distribution Width 18.2 % (11.5-14.5); White Blood Count 6.8 K/mcL (4.3-11.1)
[2021-04-10 05:32] LABS: BUN/Creatinine Ratio 14 (6-26); Blood Urea Nitrogen 14 mg/dL (6-20); Calcium 8.4 mg/dL (8.6-10.3); Carbon Dioxide 25 mEq/L (23-29); Chloride 101 mEq/L (98-107); Glucose 161 mg/dL (70-105); Magnesium 1.8 mg/dL (1.6-2.6); Osmolality,Calculated 282 (280-300); Phosphorous 3.2 mg/dL (2.7-4.5); Potassium 3.9 mEq/L (3.5-5.1); Sodium 134 mEq/L (136-145); eGFR For African Americans > 60 (> 60); eGFR For Non-African Americans 56 (> 60)
[2021-04-10] MEDS: *HR* OxyCODONE Immed Rel 5 MG TABLET PO PRN ×2 (06:28→18:17)
[2021-04-10] MEDS: Aztreonam 1,000 MG in 0.9 % Sodium Chloride Mini Bag 100 ML IVPB SCH (09:02)
[2021-04-10] MEDS: ARIPiprazole 5 MG TABLET PO SCH (09:02)
[2021-04-10] MEDS: *HR* Rivaroxaban 10 MG TABLET PO SCH (09:02)
[2021-04-10] MEDS: hydrOXYzine pamoate 25 MG CAPSULE PO SCH ×2 (09:02→21:09)
[2021-04-10] MEDS: Gabapentin 400 MG CAPSULE PO SCH ×3 (09:02→21:09)
[2021-04-10] MEDS: Famotidine 20 MG TABLET PO SCH (09:02)
[2021-04-10] MEDS: FLUoxetine 20 MG CAPSULE PO SCH (09:02)
[2021-04-10] MEDS: Budesonide/Formoterol 160/4.5 1 PUFF INH IH SCH ×2 (11:01→19:55)
[2021-04-10] MEDS: Vancomycin 2,000 MG/520 ML IV.SOLN IVPB SCH (11:29)
[2021-04-10] MEDS: SUMAtriptan succinate 50 MG TABLET PO PRN (12:07)
[2021-04-10] MEDS: levoFLOXacin 750 MG/150 ML 750 MG/150 ML BAG IVPB SCH (16:26)
[2021-04-10] MEDS: Ondansetron 4 MG/2 ML VIAL IVP PRN (18:30)
[2021-04-10] MEDS: traZODone 50 MG TABLET PO SCH (21:09)
[2021-04-10] MEDS: Melatonin 3 MG TABLET PO PRN (21:09)
[2021-04-10] MEDS ORDERED: MethylPREDNISolone 40 MG/ML VIAL IVP SCH (22:00)
[2021-04-11] MEDS: Vancomycin 2,000 MG/520 ML IV.SOLN IVPB SCH ×2 (00:29→11:52)
[2021-04-11 01:23] LABS: Hematocrit 32.8 % (35.3-44.9); Mean Corpuscular HGB Conc 30.5 g/dL (31.6-35.5); Mean Platelet Volume 9.6 fL (9.4-12.4); Platelet Count 248 K/mcL (140-400); Red Cell Distribution Width 18.4 % (11.5-14.5); White Blood Count 5.2 K/mcL (4.3-11.1)
[2021-04-11] MEDS: *HR* OxyCODONE Immed Rel 5 MG TABLET PO PRN ×2 (01:38→16:33)
[2021-04-11 01:45] LABS: BUN/Creatinine Ratio 12 (6-26); Blood Urea Nitrogen 13 mg/dL (6-20); Carbon Dioxide 26 mEq/L (23-29); Chloride 104 mEq/L (98-107); Glucose 146 mg/dL (70-105); Osmolality,Calculated 287 (280-300); Potassium 3.9 mEq/L (3.5-5.1); Sodium 137 mEq/L (136-145); eGFR For African Americans > 60 (> 60); eGFR For Non-African Americans 53 (> 60)
[2021-04-11] MEDS: Ondansetron 4 MG/2 ML VIAL IVP PRN (02:58)
[2021-04-11] MEDS: Ipratropium/Albuterol Neb 3 ML IH SCH ×4 (03:26→19:36)
[2021-04-11] MEDS: Insulin LISPRO 300 UNITS/3 ML VIAL SUBQ SCH ×4 (08:07→20:33)
[2021-04-11] MEDS: Famotidine 20 MG TABLET PO SCH (08:08)
[2021-04-11] MEDS: ARIPiprazole 5 MG TABLET PO SCH (08:08)
[2021-04-11] MEDS: predniSONE 20 MG TABLET PO SCH (08:08)
[2021-04-11] MEDS: *HR* Rivaroxaban 10 MG TABLET PO SCH (08:08)
[2021-04-11] MEDS: FLUoxetine 20 MG CAPSULE PO SCH (08:08)
[2021-04-11] MEDS: hydrOXYzine pamoate 25 MG CAPSULE PO SCH ×2 (08:08→20:33)
[2021-04-11] MEDS: Gabapentin 400 MG CAPSULE PO SCH ×3 (08:09→20:32)
[2021-04-11] MEDS: Budesonide/Formoterol 160/4.5 1 PUFF INH IH SCH ×2 (10:06→19:36)
[2021-04-11] MEDS: levoFLOXacin 750 MG/150 ML 750 MG/150 ML BAG IVPB SCH (16:33)
[2021-04-11] MEDS: Aspirin Enteric Coated 81 MG Tablet PO SCH (20:32)
[2021-04-11] MEDS: traZODone 50 MG TABLET PO SCH (20:33)
[2021-04-11] MEDS: SUMAtriptan succinate 50 MG TABLET PO PRN (21:36)
[2021-04-12] MEDS: Melatonin 3 MG TABLET PO PRN ×2 (00:07→21:34)
[2021-04-12 01:37] LABS: Basophils % 0.5 %; Eosinophils % 0.5 %; Hematocrit 36.1 % (35.3-44.9); Hemoglobin 10.8 g/dL (11.5-15.4); Immature Granulocytes % 1.2 % (0-4); Lymphocytes # 0.7 K/mcL (0.6-4.6); Lymphocytes % 12.4 %; Mean Corpuscular HGB Conc 29.9 g/dL (31.6-35.5); Mean Corpuscular Hemoglobin 24.5 pg (28.0-33.3); Mean Corpuscular Volume 81.9 fL (83.0-100.0); Mean Platelet Volume 10.1 fL (9.4-12.4); Monocytes # 0.3 K/mcL (0.0-1.3); Monocytes % 5.8 %; Neutrophils # 4.7 K/mcL (1.6-8.9); Nucleated Red Blood Cells 0.3 /100 WBC (0); Platelet Count 259 K/mcL (140-400); Red Blood Count 4.41 M/mcL (3.82-4.97); Red Cell Distribution Width 17.7 % (11.5-14.5); Segmented Neutrophils % 79.6 %; White Blood Count 5.9 K/mcL (4.3-11.1)
[2021-04-12 01:54] LABS: BUN/Creatinine Ratio 18 (6-26); Blood Urea Nitrogen 16 mg/dL (6-20); Calcium 8.4 mg/dL (8.6-10.3); Carbon Dioxide 25 mEq/L (23-29); Chloride 103 mEq/L (98-107); Glucose 229 mg/dL (70-105); Osmolality,Calculated 290 (280-300); Potassium 4.1 mEq/L (3.5-5.1); Sodium 136 mEq/L (136-145); eGFR For African Americans > 60 (> 60); eGFR For Non-African Americans > 60 (> 60)
[2021-04-12] MEDS: *HR* OxyCODONE Immed Rel 5 MG TABLET PO PRN ×3 (02:22→20:31)
[2021-04-12] MEDS: Ipratropium/Albuterol Neb 3 ML IH SCH ×4 (04:02→19:47)
[2021-04-12] MEDS: Vancomycin 1,500 MG/265 ML IV.SOLN IVPB SCH ×2 (05:45→17:09)
[2021-04-12] MEDS: Gabapentin 400 MG CAPSULE PO SCH ×3 (08:23→20:19)
[2021-04-12] MEDS: *HR* Rivaroxaban 10 MG TABLET PO SCH (08:23)
[2021-04-12] MEDS: FLUoxetine 20 MG CAPSULE PO SCH (08:23)
[2021-04-12] MEDS: Famotidine 20 MG TABLET PO SCH (08:23)
[2021-04-12] MEDS: Insulin LISPRO 300 UNITS/3 ML VIAL SUBQ SCH ×4 (08:23→20:19)
[2021-04-12] MEDS: ARIPiprazole 5 MG TABLET PO SCH (08:23)
[2021-04-12] MEDS: hydrOXYzine pamoate 25 MG CAPSULE PO SCH ×2 (08:24→20:19)
[2021-04-12] MEDS: predniSONE 20 MG TABLET PO SCH (08:24)
[2021-04-12] MEDS: Budesonide/Formoterol 160/4.5 1 PUFF INH IH SCH ×2 (09:15→19:47)
[2021-04-12] MEDS: levoFLOXacin 750 MG/150 ML 750 MG/150 ML BAG IVPB SCH (17:12)
[2021-04-12] MEDS: traZODone 50 MG TABLET PO SCH (20:19)
[2021-04-12] MEDS: Aspirin Enteric Coated 81 MG Tablet PO SCH (20:19)
[2021-04-13] MEDS: Ipratropium/Albuterol Neb 3 ML IH SCH ×4 (04:34→20:33)
[2021-04-13] MEDS: Nystatin POWDER 30 GM BOTTLE TP SCH ×3 (05:03→22:09)
[2021-04-13] MEDS: Ondansetron 4 MG/2 ML VIAL IVP PRN ×2 (05:03→16:40)
[2021-04-13 07:06] LABS: Hematocrit 36.3 % (35.3-44.9); Hemoglobin 10.6 g/dL (11.5-15.4); Mean Corpuscular HGB Conc 29.2 g/dL (31.6-35.5); Mean Corpuscular Hemoglobin 24.3 pg (28.0-33.3); Mean Corpuscular Volume 83.3 fL (83.0-100.0); Mean Platelet Volume 9.6 fL (9.4-12.4); Platelet Count 335 K/mcL (140-400); Red Blood Count 4.36 M/mcL (3.82-4.97); Red Cell Distribution Width 18.5 % (11.5-14.5); White Blood Count 6.8 K/mcL (4.3-11.1)
[2021-04-13 07:11] LABS: BUN/Creatinine Ratio 22 (6-26); Blood Urea Nitrogen 22 mg/dL (6-20); Calcium 8.6 mg/dL (8.6-10.3); Carbon Dioxide 29 mEq/L (23-29); Chloride 103 mEq/L (98-107); Glucose 224 mg/dL (70-105); Osmolality,Calculated 296 (280-300); Potassium 4.1 mEq/L (3.5-5.1); Sodium 138 mEq/L (136-145); Vancomycin,Trough 19 mcg/mL (5-10); eGFR For African Americans > 60 (> 60); eGFR For Non-African Americans 56 (> 60)
[2021-04-13] MEDS: ARIPiprazole 5 MG TABLET PO SCH (08:39)
[2021-04-13] MEDS: Insulin LISPRO 300 UNITS/3 ML VIAL SUBQ SCH ×4 (08:40→22:08)
[2021-04-13] MEDS: Gabapentin 400 MG CAPSULE PO SCH ×3 (08:40→22:11)
[2021-04-13] MEDS: hydrOXYzine pamoate 25 MG CAPSULE PO SCH ×2 (08:40→22:11)
[2021-04-13] MEDS: FLUoxetine 20 MG CAPSULE PO SCH (08:40)
[2021-04-13] MEDS: *HR* Rivaroxaban 10 MG TABLET PO SCH (08:40)
[2021-04-13] MEDS: Famotidine 20 MG TABLET PO SCH (08:40)
[2021-04-13] MEDS: predniSONE 20 MG TABLET PO SCH (08:44)
[2021-04-13] MEDS: *HR* OxyCODONE Immed Rel 5 MG TABLET PO PRN ×2 (08:45→22:10)
[2021-04-13] MEDS: Budesonide/Formoterol 160/4.5 1 PUFF INH IH SCH ×2 (10:03→20:33)
[2021-04-13] MEDS: Vancomycin 1,500 MG/265 ML IV.SOLN IVPB SCH (15:44)
[2021-04-13] MEDS ORDERED: Vancomycin 1,250 MG/262.5 ML IV.SOLN IVPB SCH (17:00)
[2021-04-13] MEDS: Aspirin Enteric Coated 81 MG Tablet PO SCH (22:10)
[2021-04-13] MEDS: Melatonin 3 MG TABLET PO PRN (22:10)
[2021-04-13] MEDS: traZODone 50 MG TABLET PO SCH (22:11)
[2021-04-13] MEDS: Sulfamethoxazole/Trimeth DS 1 EACH TABLET PO SCH (22:12)
[2021-04-14] MEDS: Ipratropium/Albuterol Neb 3 ML IH SCH ×4 (03:33→21:33)
[2021-04-14] MEDS: Ondansetron 4 MG/2 ML VIAL IVP PRN ×2 (04:20→22:37)
[2021-04-14] MEDS: Budesonide/Formoterol 160/4.5 1 PUFF INH IH SCH ×2 (08:50→21:33)
[2021-04-14] MEDS: Insulin LISPRO 300 UNITS/3 ML VIAL SUBQ SCH ×4 (08:53→21:41)
[2021-04-14] MEDS: Sulfamethoxazole/Trimeth DS 1 EACH TABLET PO SCH ×2 (08:54→21:49)
[2021-04-14] MEDS: Famotidine 20 MG TABLET PO SCH (08:54)
[2021-04-14] MEDS: FLUoxetine 20 MG CAPSULE PO SCH (08:54)
[2021-04-14] MEDS: Gabapentin 400 MG CAPSULE PO SCH ×3 (08:54→21:48)
[2021-04-14] MEDS: ARIPiprazole 5 MG TABLET PO SCH (08:54)
[2021-04-14] MEDS: *HR* Rivaroxaban 10 MG TABLET PO SCH (08:54)
[2021-04-14] MEDS: hydrOXYzine pamoate 25 MG CAPSULE PO SCH ×2 (08:54→21:48)
[2021-04-14] MEDS: Nystatin POWDER 30 GM BOTTLE TP SCH ×3 (08:55→21:49)
[2021-04-14] MEDS: *HR* OxyCODONE Immed Rel 5 MG TABLET PO PRN ×3 (09:02→21:48)
[2021-04-14] MEDS: polyethylene glycoL 3350 17 GM POWD.PACK PO SCH (10:25)
[2021-04-14] MEDS: traZODone 50 MG TABLET PO SCH (21:48)
[2021-04-14] MEDS: Aspirin Enteric Coated 81 MG Tablet PO SCH (21:49)
[2021-04-15] MEDS: Ipratropium/Albuterol Neb 3 ML IH SCH ×2 (04:08→10:59)
[2021-04-15 06:48] LABS: BUN/Creatinine Ratio 25 (6-26); Blood Urea Nitrogen 29 mg/dL (6-20); Calcium 8.3 mg/dL (8.6-10.3); Carbon Dioxide 24 mEq/L (23-29); Chloride 103 mEq/L (98-107); Glucose 149 mg/dL (70-105); Osmolality,Calculated 291 (280-300); Potassium 4.3 mEq/L (3.5-5.1); Sodium 136 mEq/L (136-145); eGFR For African Americans > 60 (> 60); eGFR For Non-African Americans 50 (> 60)
[2021-04-15 07:55] VITALS: BP 119/69; PULSE 74; TEMP 97.6; O2SAT 97
[2021-04-15] MEDS: hydrOXYzine pamoate 25 MG CAPSULE PO SCH (08:47)
[2021-04-15] MEDS: Insulin LISPRO 300 UNITS/3 ML VIAL SUBQ SCH ×2 (08:47→12:04)
[2021-04-15] MEDS: polyethylene glycoL 3350 17 GM POWD.PACK PO SCH (08:47)
[2021-04-15] MEDS: ARIPiprazole 5 MG TABLET PO SCH (08:47)
[2021-04-15] MEDS: Famotidine 20 MG TABLET PO SCH (08:48)
[2021-04-15] MEDS: FLUoxetine 20 MG CAPSULE PO SCH (08:48)
[2021-04-15] MEDS: *HR* OxyCODONE Immed Rel 5 MG TABLET PO PRN (08:48)
[2021-04-15] MEDS: Sulfamethoxazole/Trimeth DS 1 EACH TABLET PO SCH (08:49)
[2021-04-15] MEDS: Gabapentin 400 MG CAPSULE PO SCH (08:49)
[2021-04-15] MEDS: Nystatin POWDER 30 GM BOTTLE TP SCH (08:50)
[2021-04-15] MEDS: *HR* Rivaroxaban 10 MG TABLET PO SCH (08:50)
[2021-04-15] MEDS: Budesonide/Formoterol 160/4.5 1 PUFF INH IH SCH (10:59)
[2021-04-15] MEDS ORDERED: FLU Vac QV 21-22 (6Month+)/PF 0.5 ML SYRINGE IM ONE (11:10)
[2021-04-15] MEDS ORDERED: Moderna Covid-19 Vaccine 100MCG/0.5mL IM ONE (12:08)
== END 2021-04-15 13:34 | disposition home health service (06) | DRG 871 ==
LOC: 2ANU 16:00 → EMEROOARM 16:00 → SUATTDRO 20:25 → 2ANU 20:54 → SUATTDRO 04-11 11:23
PROVIDERS: ADMIT Internal Medicine; ATTEND Family Medicine

== ENCOUNTER 2021-05-15 09:35 | Observation (INO) ==
[2021-05-15] MEDS ORDERED: Furosemide 40 MG/4 ML VIAL IVP ONE ×2 (11:54→14:20)
[2021-05-15] MEDS ORDERED: Ketorolac 30 MG/ML VIAL IVP STA ×2 (11:56→14:21)
[2021-05-15] MEDS ORDERED: *HR* FentaNYL (PF) 100 MCG/2 ML VIAL IVP ONE ×2 (11:56→14:20)
[2021-05-15] MEDS ORDERED: Vancomycin 2,000 MG/520 ML IV.SOLN IVPB ONE (13:00)
[2021-05-15 13:45] LABS: Bilirubin,Urine Negative (Negative); Blood,Urine Negative (Negative); Clarity,Urine Clear (Clear); Color,Urine Yellow (Yellow); Glucose,Urine (UA) Normal (Normal); Ketones,Urine Negative (Negative); Leukocyte Esterase,Urine Negative (Negative); Mucus,Urine Few per lpf (None-Few); Nitrite,Urine Negative (Negative); PH,Urine 5.5 pH Units (5.0-8.0); Protein,Urine 30 mg/dL (Neg-Trace); Specific Gravity,Urine > 1.030 (1.010-1.025); Squamous Epithelial Cell,Urine Few per hpf (None-Few); Urobilinogen,Urine Normal (Normal)
[2021-05-15 14:15] LABS: Basophils # 0.1 K/mcL (0.0-0.2); Basophils % 0.6 %; Eosinophils # 0.5 K/mcL (0.0-0.6); Eosinophils % 4.3 %; Hematocrit 36.9 % (35.3-44.9); Hemoglobin 11.3 g/dL (11.5-15.4); Immature Granulocytes % 0.4 % (0-4); Lymphocytes # 1.2 K/mcL (0.6-4.6); Mean Corpuscular HGB Conc 30.6 g/dL (31.6-35.5); Mean Corpuscular Hemoglobin 25.2 pg (28.0-33.3); Mean Corpuscular Volume 82.2 fL (83.0-100.0); Mean Platelet Volume 9.8 fL (9.4-12.4); Monocytes # 0.7 K/mcL (0.0-1.3); Monocytes % 5.8 %; Neutrophils # 9.2 K/mcL (1.6-8.9); Platelet Count 360 K/mcL (140-400); Red Blood Count 4.49 M/mcL (3.82-4.97); Segmented Neutrophils % 78.9 %; White Blood Count 11.7 K/mcL (4.3-11.1)
[2021-05-15 14:46] LABS: Alanine Aminotransferase 20 Units/L (7-52); Albumin 3.8 g/dL (3.5-5.7); Albumin/Globulin Ratio 1.1 (1.1-2.2); Alkaline Phosphatase 129 Units/L (34-104); Aspartate Amino Transferase 12 Units/L (13-39); BUN/Creatinine Ratio 16 (6-26); Bilirubin,Direct 0.1 mg/dL (0.0-0.2); Bilirubin,Indirect 0.1 mg/dL (0.0-1.0); Bilirubin,Total 0.2 mg/dL (0.3-1.0); Blood Urea Nitrogen 17 mg/dL (6-20); Calcium 8.9 mg/dL (8.6-10.3); Carbon Dioxide 28 mEq/L (23-29); Chloride 107 mEq/L (98-107); Globulin 3.6 g/dL (2.4-3.5); Glucose 151 mg/dL (70-105); Osmolality,Calculated 302 (280-300); Sodium 144 mEq/L (136-145); Total Protein 7.4 g/dL (6.4-8.9); Troponin I < 0.03 ng/mL (< 0.04); eGFR For African Americans > 60 (> 60); eGFR For Non-African Americans 54 (> 60)
[2021-05-15 15:35] LABS: Influenza A PCR Negative (Negative); Influenza B PCR Negative (Negative); Resp. Syncytial Virus PCR Negative (Negative); SARS-CoV-2 by PCR (In House) Negative (Negative)
[2021-05-15] MEDS ORDERED: Ondansetron ODT 4 MG TAB.RAPDIS SL PRN (17:14)
[2021-05-15] MEDS ORDERED: Mag Hydrox/Al Hydrox/Simeth 30 ML UDC PO PRN (17:14)
[2021-05-15] MEDS ORDERED: Naloxone 0.4 MG/ML INJ IVP PRN (17:14)
[2021-05-15 17:58] LABS: C-Reactive Protein 22 mg/L (Less than 10)
[2021-05-15] MEDS ORDERED: D5% in Water 1,000 ML IVC PRN (18:02)
[2021-05-15] MEDS ORDERED: Dextrose Gel 15 GM/37.5 ML TUBE PO PRN ×2 (18:02)
[2021-05-15] MEDS ORDERED: *HR* Dextrose 50 % in Water (Syg) 50 ML SYRINGE IVP PRN (18:02)
[2021-05-15] MEDS: Insulin LISPRO 300 UNITS/3 ML VIAL SUBQ SCH (19:50)
[2021-05-15] MEDS: Melatonin 3 MG TABLET PO PRN (19:55)
[2021-05-16] MEDS ORDERED: Vancomycin 1,500 MG/265 ML IV.SOLN IVPB SCH (03:00)
[2021-05-16 05:01] LABS: Basophils % 0.3 %; Eosinophils # 0.4 K/mcL (0.0-0.6); Eosinophils % 4.2 %; Hematocrit 33.3 % (35.3-44.9); Hemoglobin 10.2 g/dL (11.5-15.4); Immature Granulocytes % 0.4 % (0-4); Lymphocytes # 0.8 K/mcL (0.6-4.6); Mean Corpuscular HGB Conc 30.6 g/dL (31.6-35.5); Mean Corpuscular Hemoglobin 24.9 pg (28.0-33.3); Mean Corpuscular Volume 81.2 fL (83.0-100.0); Mean Platelet Volume 9.6 fL (9.4-12.4); Monocytes # 0.6 K/mcL (0.0-1.3); Monocytes % 5.8 %; Platelet Count 306 K/mcL (140-400); Red Cell Distribution Width 19.5 % (11.5-14.5); Segmented Neutrophils % 81.3 %; White Blood Count 9.8 K/mcL (4.3-11.1)
[2021-05-16 05:23] LABS: BUN/Creatinine Ratio 16 (6-26); Blood Urea Nitrogen 17 mg/dL (6-20); Calcium 8.1 mg/dL (8.6-10.3); Carbon Dioxide 27 mEq/L (23-29); Chloride 107 mEq/L (98-107); Glucose 151 mg/dL (70-105); Osmolality,Calculated 292 (280-300); Potassium 3.6 mEq/L (3.5-5.1); Sodium 139 mEq/L (136-145); eGFR For African Americans > 60 (> 60); eGFR For Non-African Americans 55 (> 60)
[2021-05-16] MEDS ORDERED: Clindamycin 600 MG/50 ML 600 MG/50 ML IV.SOLN IVPB SCH (08:07)
[2021-05-16] MEDS: Insulin LISPRO 300 UNITS/3 ML VIAL SUBQ SCH ×4 (08:46→20:07)
[2021-05-16] MEDS: *HR* Rivaroxaban 10 MG TABLET PO SCH (08:47)
[2021-05-16] MEDS: Sulfamethoxazole/Trimeth DS 1 EACH TABLET PO SCH ×2 (09:11→20:04)
[2021-05-16] MEDS ORDERED: Ipratropium/Albuterol Neb 3 ML IH PRN (13:51)
[2021-05-16] MEDS ORDERED: SUMAtriptan succinate 50 MG TABLET PO PRN (13:51)
[2021-05-16] MEDS ORDERED: Furosemide 40 MG TABLET PO PRN (13:51)
[2021-05-16] MEDS: Gabapentin 400 MG CAPSULE PO SCH ×2 (15:01→20:04)
[2021-05-16] MEDS: Melatonin 3 MG TABLET PO PRN (20:03)
[2021-05-16] MEDS: tiZANidine 4 MG TABLET PO PRN (20:03)
[2021-05-16] MEDS: traZODone 50 MG TABLET PO SCH (20:04)
[2021-05-16] MEDS: hydrOXYzine pamoate 25 MG CAPSULE PO SCH (20:04)
[2021-05-16] MEDS: Budesonide/Formoterol 160/4.5 1 PUFF INH IH SCH (20:14)
[2021-05-17 04:47] LABS: Basophils % 0.3 %; Eosinophils # 0.5 K/mcL (0.0-0.6); Eosinophils % 6.1 %; Hematocrit 31.6 % (35.3-44.9); Hemoglobin 9.9 g/dL (11.5-15.4); Immature Granulocytes % 0.3 % (0-4); Lymphocytes % 13.4 %; Mean Corpuscular HGB Conc 31.3 g/dL (31.6-35.5); Mean Corpuscular Hemoglobin 25.4 pg (28.0-33.3); Mean Corpuscular Volume 81.2 fL (83.0-100.0); Mean Platelet Volume 9.9 fL (9.4-12.4); Monocytes # 0.6 K/mcL (0.0-1.3); Monocytes % 8.5 %; Neutrophils # 5.4 K/mcL (1.6-8.9); Platelet Count 289 K/mcL (140-400); Red Blood Count 3.89 M/mcL (3.82-4.97); Red Cell Distribution Width 19.5 % (11.5-14.5); Segmented Neutrophils % 71.4 %; White Blood Count 7.6 K/mcL (4.3-11.1)
[2021-05-17 04:50] LABS: BUN/Creatinine Ratio 16 (6-26); Blood Urea Nitrogen 17 mg/dL (6-20); Calcium 8.3 mg/dL (8.6-10.3); Carbon Dioxide 27 mEq/L (23-29); Chloride 104 mEq/L (98-107); Glucose 167 mg/dL (70-105); Osmolality,Calculated 289 (280-300); Sodium 137 mEq/L (136-145); eGFR For African Americans > 60 (> 60); eGFR For Non-African Americans 52 (> 60)
[2021-05-17] MEDS: Budesonide/Formoterol 160/4.5 1 PUFF INH IH SCH ×2 (07:55→20:08)
[2021-05-17] MEDS: Famotidine 20 MG TABLET PO SCH (08:17)
[2021-05-17] MEDS: Aspirin 81 MG TAB.CHEW PO SCH (08:17)
[2021-05-17] MEDS: ARIPiprazole 5 MG TABLET PO SCH (08:17)
[2021-05-17] MEDS: Sulfamethoxazole/Trimeth DS 1 EACH TABLET PO SCH ×2 (08:17→20:45)
[2021-05-17] MEDS: hydrOXYzine pamoate 25 MG CAPSULE PO SCH ×2 (08:17→20:45)
[2021-05-17] MEDS: Isosorbide MONOnitrate (24 HR) 30 MG TAB.ER.24H PO SCH (08:17)
[2021-05-17] MEDS: Gabapentin 400 MG CAPSULE PO SCH ×3 (08:17→20:44)
[2021-05-17] MEDS: Metoprolol XL (24 HR) Succ 25 MG TAB.ER.24H PO SCH (08:18)
[2021-05-17] MEDS: Insulin LISPRO 300 UNITS/3 ML VIAL SUBQ SCH ×4 (08:18→20:52)
[2021-05-17] MEDS: *HR* Rivaroxaban 10 MG TABLET PO SCH (08:18)
[2021-05-17] MEDS: FLUoxetine 20 MG CAPSULE PO SCH (08:18)
[2021-05-17] MEDS ORDERED: *HR* HYDROcodone/Acet 5/325 mg TABLET PO ONE (20:01)
[2021-05-17] MEDS: tiZANidine 4 MG TABLET PO PRN (20:44)
[2021-05-17] MEDS: traZODone 50 MG TABLET PO SCH (20:44)
[2021-05-17] MEDS: Melatonin 3 MG TABLET PO PRN (20:45)
[2021-05-18 05:50] LABS: Basophils % 0.4 %; Eosinophils # 0.6 K/mcL (0.0-0.6); Eosinophils % 8.1 %; Hematocrit 31.6 % (35.3-44.9); Hemoglobin 9.9 g/dL (11.5-15.4); Immature Granulocytes % 0.4 % (0-4); Lymphocytes % 12.2 %; Mean Corpuscular HGB Conc 31.3 g/dL (31.6-35.5); Mean Corpuscular Hemoglobin 25.8 pg (28.0-33.3); Mean Corpuscular Volume 82.3 fL (83.0-100.0); Mean Platelet Volume 9.6 fL (9.4-12.4); Monocytes # 0.7 K/mcL (0.0-1.3); Monocytes % 8.5 %; Neutrophils # 5.5 K/mcL (1.6-8.9); Platelet Count 277 K/mcL (140-400); Red Blood Count 3.84 M/mcL (3.82-4.97); Red Cell Distribution Width 19.2 % (11.5-14.5); Segmented Neutrophils % 70.4 %; White Blood Count 7.8 K/mcL (4.3-11.1)
[2021-05-18 06:34] LABS: Calcium 8.6 mg/dL (8.6-10.3); Potassium 4.1 mEq/L (3.5-5.1)
[2021-05-18] MEDS: Famotidine 20 MG TABLET PO SCH (07:55)
[2021-05-18] MEDS: Aspirin 81 MG TAB.CHEW PO SCH (07:56)
[2021-05-18] MEDS: Gabapentin 400 MG CAPSULE PO SCH ×2 (07:56→14:14)
[2021-05-18] MEDS: FLUoxetine 20 MG CAPSULE PO SCH (07:56)
[2021-05-18] MEDS: Isosorbide MONOnitrate (24 HR) 30 MG TAB.ER.24H PO SCH (07:56)
[2021-05-18] MEDS: Sulfamethoxazole/Trimeth DS 1 EACH TABLET PO SCH (07:56)
[2021-05-18] MEDS: hydrOXYzine pamoate 25 MG CAPSULE PO SCH (07:56)
[2021-05-18] MEDS: ARIPiprazole 5 MG TABLET PO SCH (07:56)
[2021-05-18] MEDS: *HR* Rivaroxaban 10 MG TABLET PO SCH (07:57)
[2021-05-18] MEDS: Insulin LISPRO 300 UNITS/3 ML VIAL SUBQ SCH ×2 (08:01→11:48)
[2021-05-18] MEDS: Metoprolol XL (24 HR) Succ 25 MG TAB.ER.24H PO SCH (08:02)
[2021-05-18] MEDS: Budesonide/Formoterol 160/4.5 1 PUFF INH IH SCH (08:16)
[2021-05-18 08:18] VITALS: O2SAT 96
[2021-05-18] MEDS: tiZANidine 4 MG TABLET PO PRN (09:29)
[2021-05-18 10:39] VITALS: BP 106/67; PULSE 83; TEMP 97.6
== END 2021-05-18 15:51 | disposition home or self-care (01) ==
LOC: EMEROOARM 09:35 → 3BNU 09:35 → SUATTDRO 17:40 → 3BNU 18:33
PROVIDERS: ADMIT Family Medicine; ATTEND Family Medicine